=== PATIENT | female | born 1950 | race Caucasian/White ===

== ENCOUNTER 2016-07-17 13:18 | Inpatient (IN) | payer OTHER, MEDICAID ==
--- NOTE | 2016-07-17 13:31 | EDPHY ---
H & P Stated Complaint: SOB since . [place] Seen by Provider: 07/17/16 13:29 - Personal History Current Tetanus Diphtheria and Acellular Pertussis (TDAP): Yes - Medical/Surgical History Hx Asthma: No Hx Chronic Respiratory Disease: No Hx Diabetes: No Hx Cardiac Disease: No Hx Renal Disease: No Hx Cirrhosis: No Hx Alcoholism: No Hx HIV/AIDS: No Hx Splenectomy or Spleen Trauma: No Other PMH: POLYCYTHEMIA/HTN - Social History Smoking Status: Never smoked Constitutional: Initial Vital Signs Temperature (C) 36.7 C 07/17/16 13:20 Heart Rate 83 07/17/16 13:20 Respiratory Rate 20 07/17/16 13:20 Blood Pressure 165/68 H 07/17/16 13:20 O2 Sat (%) 70 L 07/17/16 13:20 O2 Delivery Mode Nasal Cannula O2 (L/minute) 4 Allergies/Adverse Reactions: No Known Allergies Allergy (Unverified 01/25/15 14:30) Home Medications: Medication Instructions Recorded Aspirin 81mg (OTC) 01/25/15 Bystolic 5 mg (RX) 01/25/15 HCTZ (*) 07/17/16 Medical Decision Making ED Course/Re-evaluation: CHIEF COMPLAINT: Shortness of breath, hypoxia. HISTORY OF PRESENT ILLNESS: The patient is a 65-year-old female with a history of polycythemia vera who presents with shortness of breath and hypoxia. She returned from a short trip to [place] a week ago and immediately began to feel lightheaded, nauseated, and febrile. Her oxygen levels were 77-80 at this time. She does not use oxygen normally at home but monitors her levels due to her polycythemia vera. She admits associated bloating and dry cough. The shortness of breath and cough are worse when lying flat and wake her up from sleep. She denies pleuritic pain, chest pain, peripheral edema. She has no history of similar symptoms. History obtained via daughter translating at bedside. REVIEW OF SYSTEMS: A 10 point review of systems was performed and is negative with the exception of the elements mentioned in the history of present illness. PHYSICAL EXAM: HR, BP, O2 Sat, RR. Temp noted General Appearance: Alert, well hydrated, appropriate, and non-toxic appearing. Head: Atraumatic without scalp tenderness or obvious injury Eyes: Pupils equal, round, reactive to light and accommodation, EOMI, no trauma , no injection. Ears: Clear bilaterally, no perforation, normal landmarks Nose: Atraumatic, no rhinorrhea, clear. Throat: There is no erythema or exudates, no lesions, normal tonsils, mucus membranes moist. Neck: Supple, 2+ carotid upstroke, nontender, no lymphadenopathy. Respiratory: No retractions, no distress, no wheezes, and no accessory muscle use. Rales retirement up bases bilaterally. Cardiovascular: Regular rate and rhythm, no murmurs, rubs, or gallops. Bilateral carotid, radial, dorsalis pedis, and posterior tibial pulses intact. Good capillary refill all extremities. Gastrointestinal: Abdomen is soft, nontender, non-distended, no masses, no rebound, no guarding, no peritoneal signs. Musculoskeletal: Normal active ROM of all extremities, atraumatic. Small amount of swelling bilaterally. Neurological: Alert, appropriate, and interactive. The patient has normal DTRs and non-focal cranial nerves, motor, sensory, and cerebellar exam. Skin: No rashes, good turgor, no nodules on palpation. Past medical history: Polycythemia vera, hypertension, mitral valve prolapse. Past surgical history: N/A. Family history: N/A. Social history: Lives in [place] DIAGNOSTICS/PROCEDURES/CRITICAL CARE TIME: Study: PA and Lateral Chest X-ray Indication: Shortness of breath. Results: I viewed the images myself on the PACS system. My interpretation of the images is: cardiomegaly, CHF vs patchy infiltrate. The radiologist interpretation is pending at the time of this dictation. The 12 lead EKG was interpreted by myself. See hard copy and/or "tracemaster" electronic copy for interpretation. Sinus rhythm, poor R-wave progression anterior leads. DIFFERENTIAL DIAGNOSIS: The differential diagnosis for the patient's shortness of breath and hypoxemia included but was not limited to pneumonia, myocardial infarction, acute mountain sickness, high altitude pulmonary edema, congestive heart failure, and pulmonary embolus. MEDICAL DECISION MAKIN-year-old female with a history of polycythemia vera presents with dyspnea and hypoxia since returning from a short trip to [place] approximately a week ago. She has been measuring her oxygen levels over that period time and noted them to be in the 77-80 range. She has had associated cough and abdominal bloating. Her symptoms are worse at night and when lying flat. On exam she has mild peripheral edema and rales retirement up her bases. I strongly believe this represents an episode of congestive heart failure due to paroxysmal nocturnal dyspnea. We will obtain labs, chest x-ray, and EKG. I have also ordered an echocardiogram. Patient's WBC elevated at 25k, however she is not systemically ill and I have not ordered a venous blood lactate. Chest x-ray interpreted by me consisted with congestive heart failure and the patient is receiving her echocardiogram. Dr. Bhat, radiology, agrees that the x-ray represents CHF and also notes a small nodule over a lung. He sees no evidence of infectious disease. Her kidney function tests are negative, indicating no acute kidney injury from fluid overload. Troponin is negative and BNP is elevated at 3030. The initial echocardiogram report is normal smith with mild tricuspid regurgitation. Plan for admission for new-onset CHF. I informed the patient of her course and this plan and answered all of her questions. Cardiology has been paged. She has been treated with 1 inch nitroglycerin paste and 40mg IV Lasix. Her vitals have remained stable after this treatment. 1450: Consulted with Dr. Scales, cardiology. She is aware of the patient and will consult. 1456: Consulted with Dr. Segundo, hospitalist. She accepts admission. 1530: Consulted with Dr. Scales after her initial evaluation. She believes she is in heart failure and agrees that chest CT is not indicated. I discussed the course and plan with the patient and answered her questions. She is awaiting transfer to her room. - Data Points Laboratory Results: Laboratory Results 07/17/16 13:49 07/17/16 13:49 07/17/16 07/17/16 07/17/16 13:49 13:49 13:49 WBC 25.83 10^3/uL H 10^3/uL (3.80-9.50) RBC 6.03 10^6/uL H 10^6/uL (4.18-5.33) Hgb 10.5 g/dL L g/dL (12.6-16.3) Hct 39.2 % % (38.0-47.0) MCV 65.0 fL L fL (81.5-99.8) MCH 17.4 pg L pg (27.9-34.1) MCHC 26.8 g/dL L g/dL (32.4-36.7) RDW 20.8 % H % (11.5-15.2) Plt Count 729 10^3/uL H 10^3/uL (150-400) MPV 10.0 fL fL (8.7-11.7) Neut % (Auto) Not Reported Lymph % (Auto) Not Reported [place] % (Auto) Not Reported Eos % (Auto) Not Reported Baso % (Auto) Not Reported Nucleat RBC Rel Count 0.2 % % (0.0-0.2) Absolute Neuts (auto) Not Reported Absolute Lymphs (auto) Not Reported Absolute Monos (auto) Not Reported Absolute Eos (auto) Not Reported Absolute Basos (auto) Not Reported Absolute Nucleated RBC 0.04 10^3/uL H 10^3/uL (0-0.01) Immature Gran % Not Reported Seg Neutrophils % 81 % % Band Neutrophils % 9 % % Lymphocytes % 5 % % Monocytes % 3 % % Eosinophils % 1 % % Metamyelocytes % 1 % % Immature Gran # Not Reported Absolute Seg Neuts 20.92 10^/uL H 10^/uL (1.70-6.50) Absolute Band Neuts 2.32 10^3/uL H 10^3/uL (0.00-0.70) Absolute Lymphocytes 1.29 10^3/uL 10^3/uL (1.00-3.00) Absolute Monocytes 0.77 10^3/uL 10^3/uL (0.30-0.80) Absolute Eosinophils 0.26 10^3/uL 10^3/uL (0.03-0.40) Absolute Metamyelocyte 0.26 10^3/mL H 10^3/mL (0.00-0.00) Differential Comment Cancelled RBC/WBC/PLT Morphology Cancelled Hypersegmented Neuts Cancelled Atypical Lymphocytes Cancelled Smudge Cells Cancelled Toxic Granulation Cancelled Toxic Vacuolation Cancelled Dohle Bodies Cancelled Mar Rods Cancelled Platelet Estimate Cancelled INCREASED H (ADEQ) Large Platelets Cancelled PRESENT H Giant Platelets Cancelled PRESENT H Bizarre Platelets Cancelled Polychromasia Cancelled 2+ H Hypochromasia Cancelled 2+ H Basophilic Stippling Cancelled Microcytic Cells Cancelled 2+ H Spherocytes Cancelled Pappenheimer Bodies Cancelled Sickle Cells Cancelled Target Cells Cancelled Tear Drop Cells Cancelled 1+ H Oval Macrocytes Cancelled Stomatocytes Cancelled [place] Bodies Cancelled Echinocytes Cancelled Elliptocytes Cancelled Acanthocytes (Spur) Cancelled Rouleaux Cancelled Keratocytes Cancelled Schistocytes Cancelled Smear Review By Pending Sodium 136 mEq/L mEq/L (134-144) Potassium 4.0 mEq/L mEq/L (3.5-5.2) Chloride 99 mEq/L mEq/L (97-110) Carbon Dioxide 23 mEq/l mEq/l (22-31) Anion Gap 14 mEq/L mEq/L (8-16) BUN 20 mg/dL mg/dL (7-23) Creatinine 0.9 mg/dL mg/dL (0.6-1.0) Estimated GFR > 60 Glucose 183 mg/dL H mg/dL (70-100) Calcium 8.6 mg/dL mg/dL (8.5-10.4) Magnesium 1.8 mg/dL mg/dL (1.6-2.3) Troponin I 0.031 ng/mL ng/mL (0-0.034) NT-Pro-B Natriuret Pep 3030 pg/mL H pg/mL (0-125) Cold Agglutinins Cancelled Medications Given: Discontinued Medications Furosemide (Lasix Injection) 40 mg IVP EDNOW ONE Stop: 07/17/16 13:45 Last Admin: 07/17/16 14:45 Dose: 40 mg Nitroglycerin (Nitro-Bid 2%) 1 inch TP EDNOW ONE Stop: 07/17/16 13:45 Last Admin: 07/17/16 14:46 Dose: 1 inch Departure - Departure Disposition: [facility] Inpatient Acute Clinical Impression: Cardiomegaly, Elevated brain natriuretic peptide (BNP) level CHF (congestive heart failure) Qualifiers: Congestive heart failure type: unspecified congestive heart failure type Congestive heart failure chronicity: acute Qualified Code(s): I50.9 - Heart failure, unspecified Condition: Fair Report Scribed for: Tank Sheldon Report Scribed by: Mg Whiteside Date of Report: 07/17/16 Time of Report: 14:32
[2016-07-17] MEDS ORDERED: NITROGLYCERIN 2% 1 GM PACKET TP ONE (13:44)
[2016-07-17] MEDS ORDERED: FUROSEMIDE 40 MG/4 ML VIAL IVP ONE (13:44)
--- NOTE | 2016-07-17 13:52 | CPEKG ---
Heart Rate: 79 RR Interval: 759 P-R Interval: 119 QRSD Interval: 88 QT Interval: 404 QTC Interval: 464 P [place]: 0 QRS [place]: 69 T Wave [place]: 68 EKG Severity - BORDERLINE ECG - EKG Impression: SINUS RHYTHM EKG Impression: BORDERLINE T ABNORMALITIES, ANT-LAT LEADS Electronically Signed By: Tank Sheldon 17-Jul-2016 21:44:06
[2016-07-17 13:58] LABS: ABSOLUTE NRBC COUNT 0.04 10^3/uL (0-0.01); ADD DIFF? YES; ADD MORPH? YES; ATYPICAL LYMPHOCYTE FLAG 0 (0-99); FRAGMENT RBC FLAG 80 (0-99); HEMATOCRIT 39.2 % (38.0-47.0); HEMOGLOBIN 10.5 g/dL (12.6-16.3); LEFT SHIFT FLG 10 (0-99); LIPEMIA HEMOLYSIS FLAG 70 (0-99); MEAN CELL HEMOGLOBIN 17.4 pg (27.9-34.1); NRBC-AUTO% 0.2 % (0.0-0.2); PLATELET CLUMPS FLAG 10 (0-99); PLATELET COUNT 729 10^3/uL (150-400); RED BLOOD CELL COUNT 6.03 10^6/uL (4.18-5.33)
[2016-07-17 13:59] LABS: ADD SCAN? NO
[2016-07-17 14:08] LABS: MEAN CELL HEMOGLOBIN CONCENTR. 26.8 g/dL (32.4-36.7); RED CELL DISTRIBUTION WIDTH 20.8 % (11.5-15.2)
[2016-07-17 14:11] LABS: ANION GAP 14 mEq/L (8-16); CALCIUM 8.6 mg/dL (8.5-10.4); CARBON DIOXIDE 23 mEq/l (22-31); CHLORIDE 99 mEq/L (97-110); CREATININE 0.9 mg/dL (0.6-1.0); GLOMERULAR FILTRATION RATE > 60; GLUCOSE 183 mg/dL (70-100); MAGNESIUM 1.8 mg/dL (1.6-2.3); SODIUM 136 mEq/L (134-144)
[2016-07-17 14:23] LABS: TROPONIN I 0.031 ng/mL (0-0.034)
--- NOTE | 2016-07-17 15:03 | ECHO ---
[id number] + + [id number] : : [place] [id number] : : [phone] + + Adult Echocardiographic Report + -----+ :Name: SHILOHJAKEJohann QUIROS Date: 07/17/2016 02:13 PM : : Hospital Admission Number: [id number] Kerline n: ER: :: 1950 Gender: Female Height: 60 in : :Age: 65 yrs Race: WH Weight: 160 lb : :Reason For Study: Chest pain : : BSA: 1.7 meters 2 : + -----+ MMode/2D Measurements \T\ Calculations IVSd: 1.0 cm LVIDd: 4.1 cm FS: 43.8 % Ao root diam: LVPWd: 0.94 cm LVIDs: 2.3 cm EDV(Teich): 2.9 cm 73.8 ml LA dimension: ESV(Teich): 4.5 cm 18.1 ml EF(Teich): 75.4 % LVLd ap4: 8.1 cm SV(MOD-sp4): EDV(MOD-sp4): 52.0 ml 68.0 ml LVLs ap4: 6.2 cm ESV(MOD-sp4): 16.0 ml EF(MOD-sp4): 76.5 % Normal Measurement Values: + + :LVIDd (3.5-5.7cm) IVSd (0.6-1.1cm) LVPWd (0.6-1.1cm) Aortic Root (2.0-3.7cm)Left Atrium (1.5-4.0cm): :LV Vol(d) (76-115ml) LV Vol(s) (29-48ml) Ejec Fraction (50-65%)PV Francisco (0.6- 1.2m/s) TV [place] (0.4-1.0m/s) : :MV E [place] (0.8-1.0m/s)MV A [place] (0.3-1.0m/s)LVOT Francisco (0.7-1.2m/s) Asc Ao Francisco ( 0.9-1.8m/s) : + + Doppler Measurements \T\ Calculations MV E max francisco: 85.9 cm/sec Ao V2 max: 202.0 cm/sec TR max francisco: 311.0 cm/sec MV A max francisco: 125.0 cm/sec Ao max P.3 mmHg TR max P.7 mmHg MV E/A: 0.69 Ao mean P.0 mmHg RAP systole: 10.0 mmHg Ao V2 mean: 122.0 cm/secRVSP(TR): 48.7 mmHg Ao V2 VTI: 37.7 cm Left Ventricle The left ventricle is normal in size. There is normal left ventricular wall thickness. The left ventricle is hyperdynamic. Ejection Fraction = 70-75%. Grade I diastolic dysfunction. No regional wall motion abnormalities noted. Right Ventricle The right ventricle is normal in size and function. Atria The left atrium is mild to moderately dilated. The right atrium is moderately dilated. Mitral Valve There is moderate mitral annular calcification. There is no evidence of mitral valve prolapse. There is no mitral valve stenosis. There is mild mitral regurgitation. Tricuspid Valve Normal tricuspid valve. There is mild to moderate tricuspid regurgitation. Right ventricular systolic pressure is 49mmHg. There is Doppler evidence for mild pulmonary hypertension. Aortic Valve The aortic valve is trileaflet. The aortic valve opens well. There is no aortic stenosis. There is no aortic insufficiency. Pulmonic Valve The pulmonic valve is normal in structure and function. There is no pulmonic valvular regurgitation. Great Vessels The aortic root is normal size. Pericardium/Pleural There is no pericardial effusion. Conclusion A complete two-dimensional transthoracic echocardiogram was performed (2D, M-mode, Doppler and color flow Doppler). The left ventricle is hyperdynamic. Ejection Fraction = 70-75%. Normal LV wall motion The left atrium is mild to moderately dilated. The right atrium is moderately dilated. There is moderate mitral annular calcification. There is mild mitral regurgitation. There is mild to moderate tricuspid regurgitation. Right ventricular systolic pressure is 49mmHg. There is Doppler evidence for mild pulmonary hypertension. Final Reading Physician: Dr Sylvia Scales electronically signed on 07/17/2016 03:02 PM Ordering Physician: Tank Sheldon Performed By: Irene Ortiz, NITACS
[2016-07-17 15:07] LABS: GIANT PLATELETS PRESENT; HYPOCHROMIA 2+; LARGE PLATELETS PRESENT; MICROCYTES 2+; PLATELET ESTIMATE INCREASED (ADEQ); POLYCHROMASIA 2+
[2016-07-17] MEDS ORDERED: ONDANSETRON 4 MG/2 ML VIAL IVP PRN (17:26)
[2016-07-17] MEDS ORDERED: ONDANSETRON DISINTEGRATING 4 MG TAB PO PRN (17:26)
[2016-07-17] MEDS ORDERED: ACETAMINOPHEN 325 MG TAB PO PRN (17:26)
--- NOTE | 2016-07-17 17:33 | PDGENHP ---
History and Physical - Chief Complaint acute Shortness of breath - History of Present Illness PCP: Dr. Hill Primary oncologist: Dr. Calabrese HPI: 65-year-old female presents with acute shortness of breath characterized as difficulty taking deep inspiration with associated lightheadedness, nausea, subjective fever, paroxysmal nocturnal dyspnea with onset of symptoms approximately 5 days ago and duration progressive worsening thereafter. Her shortness of breath is exacerbated by lying supine has been somewhat alleviated by receiving nitroglycerin and Lasix in the emergency department. Her daughter notes that she has been urinating more frequently recently and has had some urinary incontinence with coughing. Prior to patient's onset of symptoms, she had been visiting with family in [place] and she has been frequently dining out. Approximately 1 month ago she experienced with her daughter characterizes as a URI. The patient denies ever experiencing similar symptoms. She has otherwise been taking all of her home medications including Bystolic, hydrochlorothiazide , baby aspirin daily. She does check her blood pressure fairly routinely and reports that is generally between 120 and 130. History Information - Allergies/Home Medication List Allergies/Adverse Reactions: No Known Allergies Allergy (Unverified 01/25/15 14:30) Home Medications: Aspirin 81mg (OTC) 01/25/15 [Last Taken Unknown] Bystolic 5 mg (RX) 01/25/15 [Last Taken Unknown] HCTZ (*) 07/17/16 [Last Taken Unknown] I have personally reviewed and updated: family history, medical history, social history, surgical history - Past Medical History hypertension Additional medical history: polycythemia with baseline white blood cell count in the 20,000 range - Surgical History Reports: no pertinent surgical hx - Family History Additional family history: no family history of venous thromboembolism, no family history of coronary artery disease - Social History Smoking Status: Never smoked Alcohol Use: None Drug Use: None Additional social history: normally independent in her ADLs, lives locally Review of Systems ROS: 10pt was reviewed & negative except for what was stated in HPI & below Constitutional: Reports: fever Respiratory: Reports: cough, shortness of breath Gastrointestinal: Reports: nausea Physical Exam Temp Pulse Resp BP Pulse Ox 36.7 C 83 22 H 142/70 H 90 L 07/17/16 16:09 07/17/16 16:09 07/17/16 16:09 07/17/16 16:09 07/17/16 16:09 O2 (L/minute) 4 Constitutional: no apparent distress, appears nourished, not in pain Eyes: PERRL, anicteric sclera, EOMI Ears, Nose, Mouth, Throat: moist mucous membranes, hearing normal, ears appear normal, no oral mucosal ulcers Cardiovascular: JVD, No systolic murmur, No irregularly irregular, No tachycardia, No edema Respiratory: inspiratory crackles ( bilaterally diffusely throughout posteriorly ), No reduced air movement, No expiratory wheeze, No bronchial breath sounds, No respiratory distress Gastrointestinal: normoactive bowel sounds, soft, non-tender abdomen, no palpable masses Skin: warm, normal color, no rashes or abrasions, no fluctuance, no induration, No mottled Neurologic: AAOx3, sensation intact bilaterally, No weakness ( motor strength 5/ 5 bilateral lower extremity) Psychiatric: interacting appropriately, not anxious, not encephalopathic, thought process linear Lab Data & Imaging Review 07/17/16 13:49 07/17/16 13:49 WBC 25.83 10^3/uL (3.80-9.50) H 07/17/16 13:49 RBC 6.03 10^6/uL (4.18-5.33) H 07/17/16 13:49 Hgb 10.5 g/dL (12.6-16.3) L 07/17/16 13:49 Hct 39.2 % (38.0-47.0) 07/17/16 13:49 MCV 65.0 fL (81.5-99.8) L 07/17/16 13:49 MCH 17.4 pg (27.9-34.1) L 07/17/16 13:49 MCHC 26.8 g/dL (32.4-36.7) L 07/17/16 13:49 RDW 20.8 % (11.5-15.2) H 07/17/16 13:49 Plt Count 729 10^3/uL (150-400) H 07/17/16 13:49 MPV 10.0 fL (8.7-11.7) 07/17/16 13:49 Neut % (Auto) Not Reported 07/17/16 13:49 Lymph % (Auto) Not Reported 07/17/16 13:49 [place] % (Auto) Not Reported 07/17/16 13:49 Eos % (Auto) Not Reported 07/17/16 13:49 Baso % (Auto) Not Reported 07/17/16 13:49 Nucleat RBC Rel Count 0.2 % (0.0-0.2) 07/17/16 13:49 Absolute Neuts (auto) Not Reported 07/17/16 13:49 Absolute Lymphs (auto) Not Reported 07/17/16 13:49 Absolute Monos (auto) Not Reported 07/17/16 13:49 Absolute Eos (auto) Not Reported 07/17/16 13:49 Absolute Basos (auto) Not Reported 07/17/16 13:49 Absolute Nucleated RBC 0.04 10^3/uL (0-0.01) H 07/17/16 13:49 Immature Gran % Not Reported 07/17/16 13:49 Seg Neutrophils % 81 % 07/17/16 13:49 Band Neutrophils % 9 % 07/17/16 13:49 Lymphocytes % 5 % 07/17/16 13:49 Monocytes % 3 % 07/17/16 13:49 Eosinophils % 1 % 07/17/16 13:49 Metamyelocytes % 1 % 07/17/16 13:49 Immature Gran # Not Reported 07/17/16 13:49 Absolute Seg Neuts 20.92 10^/uL (1.70-6.50) H 07/17/16 13:49 Absolute Band Neuts 2.32 10^3/uL (0.00-0.70) H 07/17/16 13:49 Absolute Lymphocytes 1.29 10^3/uL (1.00-3.00) 07/17/16 13:49 Absolute Monocytes 0.77 10^3/uL (0.30-0.80) 07/17/16 13:49 Absolute Eosinophils 0.26 10^3/uL (0.03-0.40) 07/17/16 13:49 Absolute Metamyelocyte 0.26 10^3/mL (0.00-0.00) H 07/17/16 13:49 Differential Comment Cancelled 07/17/16 13:49 RBC/WBC/PLT Morphology Cancelled 07/17/16 13:49 Hypersegmented Neuts Cancelled 07/17/16 13:49 Atypical Lymphocytes Cancelled 07/17/16 13:49 Smudge Cells Cancelled 07/17/16 13:49 Toxic Granulation Cancelled 07/17/16 13:49 Toxic Vacuolation Cancelled 07/17/16 13:49 Dohle Bodies Cancelled 07/17/16 13:49 Mar Rods Cancelled 07/17/16 13:49 Platelet Estimate INCREASED (ADEQ) H 07/17/16 13:49 Large Platelets PRESENT H 07/17/16 13:49 Giant Platelets PRESENT H 07/17/16 13:49 Bizarre Platelets Cancelled 07/17/16 13:49 Polychromasia 2+ H 07/17/16 13:49 Hypochromasia 2+ H 07/17/16 13:49 Basophilic Stippling Cancelled 07/17/16 13:49 Microcytic Cells 2+ H 07/17/16 13:49 Spherocytes Cancelled 07/17/16 13:49 Pappenheimer Bodies Cancelled 07/17/16 13:49 Sickle Cells Cancelled 07/17/16 13:49 Target Cells Cancelled 07/17/16 13:49 Tear Drop Cells 1+ H 07/17/16 13:49 Oval Macrocytes Cancelled 07/17/16 13:49 Stomatocytes Cancelled 07/17/16 13:49 Nicole-[place] Bodies Cancelled 07/17/16 13:49 Echinocytes Cancelled 07/17/16 13:49 Elliptocytes Cancelled 07/17/16 13:49 Acanthocytes (Spur) Cancelled 07/17/16 13:49 Rouleaux Cancelled 07/17/16 13:49 Keratocytes Cancelled 07/17/16 13:49 Schistocytes Cancelled 07/17/16 13:49 D-Dimer 0.81 ug/mLFEU (0.00-0.50) H 07/17/16 16:20 Sodium 136 mEq/L (134-144) 07/17/16 13:49 Potassium 4.0 mEq/L (3.5-5.2) 07/17/16 13:49 Chloride 99 mEq/L (97-110) 07/17/16 13:49 Carbon Dioxide 23 mEq/l (22-31) 07/17/16 13:49 Anion Gap 14 mEq/L (8-16) 07/17/16 13:49 BUN 20 mg/dL (7-23) 07/17/16 13:49 Creatinine 0.9 mg/dL (0.6-1.0) 04 13:49 Estimated GFR > 60 04 13:49 Glucose 183 mg/dL (70-100) H 07/17/16 13:49 Calcium 8.6 mg/dL (8.5-10.4) 04 13:49 Magnesium 1.8 mg/dL (1.6-2.3) 04 13:49 Troponin I 0.031 ng/mL (0-0.034) 04 13:49 NT-Pro-B Natriuret Pep 3030 pg/mL (0-125) H 07/17/16 13:49 Cold Agglutinins Cancelled 07/17/16 13:49 Visualized and Interpreted Chest x-ray results: Yes Chest X-Ray results: other ( bilateral interstitial prominence with atelectasis and right-sided nodule) Visualized and Interpreted EKG results: Yes EKG Interpretation: Positive for: other ( T-wave inversion in lead V2, normal sinus rhythm) Assessment & Plan Assessment: 65-year-old female presents with acute shortness of breath secondary to acute diastolic congestive heart failure exacerbation Plan: 1. Shortness of breath. Acute, new problem this provider, further workup indicated. Most likely secondary to acute diastolic congestive heart failure exacerbation, but other potential etiologies should be considered given her recent travel and subjective fevers -diameter positive, get CT angiogram to rule out pulmonary embolism -get influenza PCR given the patient most likely did not receive vaccination this year -continue on supplemental oxygen 2. Diastolic congestive heart failure exacerbation. Acute, most likely secondary to under controlled hypertension with recent dietary indiscretions and possible increased fluid intake in the setting of recent URI -evidenced by interstitial infiltrates on chest x-ray, elevated BNP, symptomatic shortness of breath, JVD, hypoxia -echocardiogram demonstrating diastolic dysfunction, no focal wall motion abnormalities, hyperdynamic left ventricle with ejection fraction 70-75% and moderate left atrial enlargement -symptomatic improvement with Lasix and nitroglycerin, discontinue nitroglycerin at this time and continue with IV Lasix scheduled 40 mg twice daily -supplemental potassium and monitor electrolytes -reviewed outside records including emergency department report by Dr. Tank Sheldon on 07/17/2016, reports that Dr. Scales from Cardiology has been consulted -most recent stress test in our system was 03/22/2010, normal at that time 3. Hypertension. Will continue patient's home Bystolic and have replaced hydrochlorothiazide with Lasix Diet. Cardiac diet Prophylaxis. Moderate risk patient, Lovenox 40 Code. Full Disposition. Anticipated discharge is uncertain this time, anticipated length stay is greater than 48 hours warranting inpatient admission status for a new diagnsosis of acute diastolic congestive heart failure exacerbation in the setting of hypertension and ongoing shortness of breath. I have discussed patient's presentation with Dr. Nikki Segundo, she has signed out the patient to me for admission to the PCU.
--- NOTE | 2016-07-17 18:17 | GCON ---
[f rep st] CONSULTATION CARDIOLOGY CONSULTATION. DATE OF CONSULTATION: 07/17/2016 PRIMARY WEB DESIGN SPECIALIST: August Jo MD CHIEF COMPLAINT: Shortness of breath. HISTORY OF PRESENT ILLNESS: We were asked by Dr. Sheldon to visit with the patient. The patient is a pleasant 65-year-old, Maltese-speaking female with a history of hypertension and impaired fasting glucose. Her daughter is present and translates during the interview. Last week, she and her family were in [place]. While there, she started to feel somewhat unwell wit h malaise and cough. She flew back to [place] approximately 5 days ago. Upon return, she felt es rt of breath, continued dry cough, and 1 day of fever. She has not had chest pain or palpitations. No presyncope or syncope. She felt that her abdomen was distended. She did not have lower extremi ty edema. Symptoms have progressed to the point where when she lies down she feels short of breath and has a cough. Her daughter found that her oxygen saturation at home was low, in the 80s. Theref ore, they presented to the emergency department for further evaluation. In the emergency department, she has received nitro paste and IV Lasix, and already had reasonable u rine output. Troponin is negative. EKG is nonischemic. She is being admitted for further evaluati on of hypoxia. REVIEW OF SYSTEMS: CARDIOVASCULAR: As per HPI. PULMONARY: She is a nonsmoker and gives no histor y of known underlying lung disease. GI: Abdominal distention without diarrhea or abdominal pain. : Denies dysuria. NEURO: No history of stroke or TIA. SKIN: For about a month she has had an intermittent rash over her left lateral thigh. This itches and is in no other part of her body. ALLERGIES: No known drug allergies. PAST MEDICAL HISTORY: 1. Hypertension. 2. Impaired fasting glucose. 3. Polycythemia vera. MEDICATIONS: Aspirin 81 mg daily, Bystolic, hydrochlorothiazide, magnesium, and metformin. SURGICAL HISTORY: Appendectomy and hernia repair. SOCIAL HISTORY: The patient has 2 children. Her daughter is at the bedside. She is . She does not drink alcohol. She is a lifelong nonsmoker. FAMILY HISTORY: Negative for premature coronary disease. Her mother has hypertension. PHYSICAL EXAMINATION: VITAL SIGNS: Initial blood pressure 165/68, currently 142/57, heart rate 75, oxygen saturation 70% on room air and 98% on 4 L nasal cannula. Afebrile. GENERAL: This is a wel l-appearing, middle-aged female, in no acute distress. HEENT: Sclerae are clear and free of jaundi ce. Mucous membranes are moist. Normocephalic, atraumatic. CARDIOVASCULAR: JVP is less than 10. Carotids equal and 2+ bilaterally, without bruit. Regular rate and rhythm. Soft early systolic mu rmur at the left lower sternal border. LUNGS: Bibasilar rales. No wheezes or rhonchi. She does n ot appear to be using accessary muscles to breathe. ABDOMEN: Soft, nontender, nondistended, withou t bruits, masses or hepatosplenomegaly. EXTREMITIES: Warm and well perfused, without cyanosis, clu bbing, or edema. NEURO: Alert and oriented x3 without gross focal neurological deficits. Appropri ate mood and affect. LABORATORY DATA: White count is 25.83, which is near her baseline. Hematocrit 39.2, platelets 729, which is also her baseline. She has a high proportion of bands and segmented neutrophils. Sodium 136, potassium 4, chloride 99, bicarb 23, BUN 20, creatinine 0.9, glucose 183. BNP 3030. Troponin negative. Magnesium 1.8. Calcium 8.6. EKG reviewed by me: Normal sinus rhythm. Left atrial abnormality. Delayed R-wave progression. No acute ischemic abnormalities. Chest x-ray reviewed by me: Interstitial prominence, right basilar nodule, bibasilar opacities. Echocardiogram reviewed by me. Normal LV size and systolic function, without regional wall motion abnormalities. Grade 1 diastolic dysfunction. Mild to moderate left a trial dilation. Moderate right atrial dilation. Mild mitral regurgitation. [id number] tricu spid regurgitation with estimated pulmonary artery pressure of 49 mmHg. Nuclear stress test in our office in August 2015 was a Lexiscan study due to chronotropic incompetence. Normal myocardial perfusion and normal left ventricular ejection fraction. ASSESSMENT AND PLAN: A 65-year-old female with cardiac risk factors of age, hypertension, impaired fasting glucose. She is now being admitted with hypoxic respiratory failure, elevated BNP. The dif ferential diagnosis for her clinical picture includes atypical bacterial versus viral pneumonia, anam ecially in the setting of overall malaise and a history of fever. She does appear to be in mild hea rt failure based on her elevated BNP as well as chest x-ray findings. Doubt pulmonary embolism give n her abnormal lung exam and lack of lower extremity swelling or calf tenderness. Doubt cardiac isc hemia. Of note, she was also quite hypertensive upon admission, and this may be driving some of her diastolic heart failure. Her pulmonary hypertension may be related to underlying lung process. 1. Hypoxic respiratory failure: Differential diagnosis as above. She has responded to nitro paste and IV Lasix. Would continue to cycle troponins to ensure this is not an ischemically-mediated hea rt failure exacerbation. Consider flu swab. Will defer to hospitalist. If she does not clinically improve with blood pressure control and diuresis, could consider high-resolution chest CT, especial ly since she has a diffuse pattern of interstitial prominence and a possible pulmonary nodule seen o n plain chest radiograph. As above, doubt pulmonary embolism. 2. Valvular heart disease: She has mild mitral regurgitation and [id number] tricuspid regurg itation with mild pulmonary hypertension. Diuresis. I think her pulmonary hypertension is related to her underlying lung process with some contribution from left-sided diastolic heart failure. 3. Systemic hypertension: She should resume her usual outpatient medications. Poorly-controlled h ypertension may have triggered heart failure. 4. Impaired fasting glucose: She is on metformin at home. Thank you for allowing us to participate in the patient's care. We will follow with you. /[id number]/MODL
[2016-07-17] MEDS ORDERED: IOPAMIDOL (ISOVUE 370) 100 ML BTL IV ONE (18:21)
[2016-07-18 04:32] LABS: ABSOLUTE NRBC COUNT 0.04 10^3/uL (0-0.01); ADD DIFF? YES; ADD SCAN? NO; ATYPICAL LYMPHOCYTE FLAG 0 (0-99); FRAGMENT RBC FLAG 80 (0-99); HEMATOCRIT 38.3 % (38.0-47.0); LEFT SHIFT FLG 0 (0-99); LIPEMIA HEMOLYSIS FLAG 60 (0-99); MEAN CELL HEMOGLOBIN 17.6 pg (27.9-34.1); MEAN PLATELET VOLUME 9.9 fL (8.7-11.7); NRBC-AUTO% 0.2 % (0.0-0.2); PLATELET CLUMPS FLAG 0 (0-99); PLATELET COUNT 613 10^3/uL (150-400); RED BLOOD CELL COUNT 5.68 10^6/uL (4.18-5.33)
[2016-07-18 04:49] LABS: ALANINE AMINOTRANSFERASE 30 IU/L (9-52); ALBUMIN 3.7 g/dL (3.5-5.0); ALKALINE PHOSPHATASE 148 IU/L (38-126); ASPARTATE AMINOTRANSFERASE 17 IU/L (14-46); BILIRUBIN,TOTAL 0.8 mg/dL (0.1-1.4); CALCIUM 8.7 mg/dL (8.5-10.4); CARBON DIOXIDE 23 mEq/l (22-31); CHLORIDE 97 mEq/L (97-110); CREATININE 0.9 mg/dL (0.6-1.0); GLOMERULAR FILTRATION RATE > 60; GLUCOSE 142 mg/dL (70-100); MAGNESIUM 1.8 mg/dL (1.6-2.3); SODIUM 138 mEq/L (134-144); TOTAL PROTEIN 7.2 g/dL (6.3-8.2)
[2016-07-18 05:01] LABS: ANION GAP 18 mEq/L (8-16); POTASSIUM 4.2 mEq/L (3.5-5.2)
[2016-07-18 05:06] LABS: ADD MORPH? NO; MEAN CELL HEMOGLOBIN CONCENTR. 26.1 g/dL (32.4-36.7); MEAN CELL VOLUME 67.4 fL (81.5-99.8); RED CELL DISTRIBUTION WIDTH 20.8 % (11.5-15.2)
[2016-07-18 05:40] LABS: LARGE PLATELETS PRESENT; PLATELET ESTIMATE INCREASED (ADEQ)
[2016-07-18 05:41] LABS: POLYCHROMASIA 2+
[2016-07-18 05:42] LABS: HYPOCHROMIA 2+; MACROCYTES 1+; MICROCYTES 2+
[2016-07-18] MEDS: FUROSEMIDE 40 MG/4 ML VIAL IVP SCH ×2 (08:42→14:55)
[2016-07-18] MEDS: ENOXAPARIN 40 MG/0.4 ML SYR SC SCH (08:42)
[2016-07-18] MEDS: ASPIRIN EC 81 MG TAB PO SCH (09:43)
--- NOTE | 2016-07-18 12:23 | PDCARPN ---
Cardiology Progress Note Assessment/Plan: Assessment/plan: 65 y F with HTN, IFG, mild PHTN admitted /3 with hypoxic respiratory failure, likely HFpEF. Clinically improved with IV lasix and supplemental O2. Negative troponin 1. HFpEF: continue IV lasix. Trigger may have been suboptimally controlled HTN and dietary indiscretion. Likely transition to oral lasix tomorrow. If O2 requirements don't improve, consider pneumonia 2. Hypoxia: as per #1. Other possibilities include pneumonia. Chest CT more suggestive of CHF. No PE 3. HTN; restart Bystolic 4. IFG: outpt follow up 5. P Vera: baseline 6. Abnormal chest CT: seems to be pulmonary edema. Radiology recommends follow up imaging to survey ground glass opacities. 07/18/16 12:27 Subjective: Aleshia feels better. Cough is less. Improved SOB. No CP Reviewed/Discussed With: family Objective: Vital Signs (8 Hrs) Temp Pulse Resp BP Pulse Ox 07/18/16 11:52 36.7 C 84 19 143/86 H 98 07/18/16 07:31 37.3 C 73 20 137/60 H 92 07/18/16 07:10 75 Intake/Output (24 Hrs) 07/17/16 07/18/16 07/19/16 05:59 05:59 05:59 Intake Total 350 850 Balance 350 850 Intake: Oral (ml) 350 850 Other: Weight 72.1 kg Number of Voids Toilet 2 NAD JVP <10 RRR no m/r/g rales right base, clears with continued deep breaths --better than yesterday No edema Result Diagrams: 07/18/16 03:12 07/18/16 03:12 Telemetry: NSR ICD10 Worksheet Patient Problems: Problems Problem Status Onset CHF (congestive heart failure) Acute Cardiomegaly Acute Elevated brain natriuretic peptide (BNP) level Acute
[2016-07-18] MEDS: NEBIVOLOL HCL 5 MG TAB PO SCH ×2 (12:32→20:36)
--- NOTE | 2016-07-18 17:09 | PDDCSUM ---
Discharge Summary Discharge Summary: DISCHARGE SUMMARY FOLLOW-UP ITEMS: Creatinine BUN and lytes to be repeated prior to next appointment, repeat chest CT as an outpatient once she is clinically resolved DATE OF ADMISSION: 07/17/16 DATE OF DISCHARGE: 07/18/2016 DISCHARGE DIAGNOSES: 1. Acute diastolic congestive heart failure exacerbation 2. Chronic hypertension 3. Chronic polycythemia CONSULTATIONS: Cardiology by Dr. Sylvia Scales PROCEDURES / IMAGING: Echocardiogram demonstrating no focal wall motion abnormalities, hyperdynamic left ventricular, ejection fraction 70%, CT angiograms demonstrating congestive changes and bibasilar opacities CHIEF COMPLAINT: Acute shortness of breath SUBJECTIVE: Patient reports that she is feeling better and is able to ambulate with supplemental oxygen, she is requesting that she be discharged home at this time PHYSICAL EXAM ON DISCHARGE: Systolic blood pressure is 1/30, heart rate in the 70s, afebrile overnight, satting 83% on 4 L nasal cannula with ambulation, inspiratory crackles in the bilateral bases, not quite as pronounced as day prior, heart regular rate and rhythm, no lower extremity edema LABS ON DISCHARGE: Potassium 4.2, creatinine 0.9, white blood cell count 24,900, hemoglobin 10, influenza PCR negative HOSPITAL COURSE BY PROBLEM: 1. Acute diastolic congestive heart failure exacerbation. Evidenced by elevated BNP, interstitial infiltrates on chest imaging, symptomatic shortness of breath, JVD, notable hypoxia. Unclear precipitant, potentially high altitude pulmonary edema versus under controlled hypertension with diastolic dysfunction on echo and recent dietary indiscretions. She responded favorably to IV diuretics and supplemental oxygen. She was seen in consultation by Cardiology. Given that the patient immediately began feeling better with diuresis, she has requested that she be discharged home. I have advised the patient another 24 hours of IV diuretics as well as reduction in her oxygen requirements would be the safest course. The patient hears concerns but would like to be discharged home. Consequently, will adjust her to oral Lasix and supplemental potassium at this time with repeat creatinine BUN and lytes this week and immediate outpatient follow-up at [facility]. I have communicated this with Dr. Scales. 2. Chronic hypertension. Will continue the patient's home dosage of Bystolic and replaced her hydrochlorothiazide with Lasix. 3. Chronic polycythemia. Chronically elevated white blood cell count, suspect that the after mentioned chest imaging findings are secondary to CHF and not pneumonia. That being said, if the patient begins experiencing infectious symptoms would recommend that her outpatient providers consider antibiotics. At the present time, the patient is not expressing any infectious symptoms. DISCHARGE MEDICATIONS: Please see official discharge medication reconciliation sheet in chart , Lasix 40 mg twice daily with 10 mEq of potassium chloride daily. DISCHARGE INSTRUCTIONS: Please follow up with [facility] within the next 3 days and have labs drawn prior to that appointment. You will have your oxygen requirements reassessed in the clinic setting. TIME SPENT: Greater than 30 minutes were spent on direct patient care, as well as discharge planning and preparation. Patient's condition improved much more rapidly than initially anticipated when she was admitted on 07/17 for reasonable medical necessity. In addition, the patient has requested discharge home at this time and this is completely out of control. We are attempting to facilitate the safest discharge possible and the patient's request.
[2016-07-18] MEDS: MELATONIN 3 MG TAB PO SCH ×2 (20:35→20:36)
[2016-07-19 05:33] LABS: % IMMATURE GRANULYOCYTES 1.2 % (0.0-1.1); ABSOLUTE IMMATURE GRANULOCYTES 0.28 10^3/uL (0.00-0.10); ABSOLUTE NRBC COUNT 0.02 10^3/uL (0-0.01); ADD DIFF? NO; ADD MORPH? YES; ADD SCAN? NO; ATYPICAL LYMPHOCYTE FLAG 0 (0-99); FRAGMENT RBC FLAG 60 (0-99); HEMATOCRIT 38.6 % (38.0-47.0); HEMOGLOBIN 10.1 g/dL (12.6-16.3); LEFT SHIFT FLG 10 (0-99); LIPEMIA HEMOLYSIS FLAG 60 (0-99); MEAN CELL HEMOGLOBIN 17.4 pg (27.9-34.1); MEAN PLATELET VOLUME 10.2 fL (8.7-11.7); NRBC-AUTO% 0.1 % (0.0-0.2); PLATELET CLUMPS FLAG 0 (0-99); PLATELET COUNT 588 10^3/uL (150-400); RED BLOOD CELL COUNT 5.79 10^6/uL (4.18-5.33)
[2016-07-19 05:37] LABS: MEAN CELL HEMOGLOBIN CONCENTR. 26.2 g/dL (32.4-36.7); MEAN CELL VOLUME 66.7 fL (81.5-99.8); RED CELL DISTRIBUTION WIDTH 20.6 % (11.5-15.2)
[2016-07-19 06:00] LABS: ANION GAP 13 mEq/L (8-16); CALCIUM 8.6 mg/dL (8.5-10.4); CARBON DIOXIDE 25 mEq/l (22-31); CHLORIDE 96 mEq/L (97-110); CREATININE 0.9 mg/dL (0.6-1.0); GLOMERULAR FILTRATION RATE > 60; GLUCOSE 130 mg/dL (70-100); MAGNESIUM 1.9 mg/dL (1.6-2.3); POTASSIUM 4.2 mEq/L (3.5-5.2); SODIUM 134 mEq/L (134-144)
[2016-07-19 06:02] LABS: HYPOCHROMIA 2+; LARGE PLATELETS PRESENT; MICROCYTES 3+; PLATELET ESTIMATE INCREASED (ADEQ); POLYCHROMASIA 1+
[2016-07-19] MEDS: FUROSEMIDE 40 MG/4 ML VIAL IVP SCH ×2 (08:01→14:02)
[2016-07-19] MEDS: ASPIRIN EC 81 MG TAB PO SCH (08:01)
[2016-07-19] MEDS: ENOXAPARIN 40 MG/0.4 ML SYR SC SCH (08:01)
[2016-07-19] MEDS ORDERED: PNEUMOC 13-VAL CONJ-DIP CRM/PF 0.5 ML SYR IM ONE (08:11)
[2016-07-19] MEDS: NEBIVOLOL HCL 5 MG TAB PO SCH (10:51)
[2016-07-19 11:50] VITALS: BP 115/54; PULSE 69; RESP 20; TEMP 98.4; O2SAT 97
--- NOTE | 2016-07-19 12:00 | PDCARPN ---
Cardiology Progress Note Assessment/Plan: Assessment/plan: 65 y F with HTN, IFG, mild PHTN admitted / with hypoxic respiratory failure, likely HFpEF. Clinically improved with IV lasix and supplemental O2. Negative troponin 1. HFpEF: continue IV lasix. Transition to oral Lasix tomorrow. BNP has improved dramatically. Trigger may have been suboptimally controlled HTN and dietary indiscretion. 2. Hypoxia: as per #1. Other possibilities include pneumonia. Chest CT more suggestive of CHF. No PE 3. HTN; On Bystolic 4. IFG: outpt follow up 5. P Vera: baseline 6. Abnormal chest CT: seems to be pulmonary edema. Radiology recommends follow up imaging to survey ground glass opacities. Will sign off. The patient should follow up with Dr. Jo next week. 07/19/16 12:01 Subjective: she feels better. Shortness of breath is improved. Minimal cough. No chest pain. Reviewed/Discussed With: hospitalist Objective: Vital Signs (8 Hrs) Temp Pulse Resp BP Pulse Ox 07/19/16 11:50 36.9 C 69 20 115/54 L 97 07/19/16 07:31 36.6 C 64 18 105/52 L 99 07/19/16 04:00 37 C 75 20 118/60 91 L Intake/Output (24 Hrs) 07/18/16 07/19/16 07/20/16 05:59 05:59 05:59 Intake Total 350 2440 400 Output Total 300 Balance 350 2140 400 Intake: Oral (ml) 350 2440 400 Output: Urine (ml) 300 Toilet 300 Other: Weight 72.1 kg 70.3 kg Number of Voids Toilet 2 6 nuclear distress. JVP less than 10. Regular rate and rhythm with soft early systolic murmur left lower sternal border Lungs clear to auscultation bilaterally Extremities warm well perfused without cyanosis clubbing or edema Result Diagrams: 07/19/16 04:02 07/19/16 04:02 Telemetry: Normal sinus rhythm. Rare junctional beats. ICD10 Worksheet Patient Problems: Problems Problem Status Onset Chronic Disease Mgmt/Transitional Care Acute CHF (congestive heart failure) Acute Cardiomegaly Acute Elevated brain natriuretic peptide (BNP) level Acute
--- NOTE | 2016-07-19 17:34 | PDDCSUM ---
Discharge Summary Discharge Summary: DISCHARGE SUMMARY FOLLOW-UP ITEMS: Creatinine BUN and lytes to be repeated prior to next appointment, repeat chest CT as an outpatient once she is clinically resolved DATE OF ADMISSION: 07/17/16 DATE OF DISCHARGE: 07/18/2016 DISCHARGE DIAGNOSES: 1. Acute diastolic congestive heart failure exacerbation 2. Chronic hypertension 3. Chronic polycythemia 4. Acute hypoxic respiratory failure CONSULTATIONS: Cardiology by Dr. Sylvia Scales PROCEDURES / IMAGING: Echocardiogram demonstrating no focal wall motion abnormalities, hyperdynamic left ventricular, ejection fraction 70%, CT angiograms demonstrating congestive changes and bibasilar opacities CHIEF COMPLAINT: Acute shortness of breath SUBJECTIVE: Patient reports that she is feeling better and is able to ambulate with supplemental oxygen PHYSICAL EXAM ON DISCHARGE: Systolic blood pressure is 1/30, heart rate in the 70s, afebrile overnight, satting 83% on 4 L nasal cannula with ambulation, inspiratory crackles in the bilateral bases, not quite as pronounced as day prior, heart regular rate and rhythm, no lower extremity edema LABS ON DISCHARGE: Potassium 4.2, creatinine 0.9, white blood cell count 23,000, hemoglobin 10.1, influenza PCR negative HOSPITAL COURSE BY PROBLEM: 1. Acute diastolic congestive heart failure exacerbation. Evidenced by elevated BNP, interstitial infiltrates on chest imaging, symptomatic shortness of breath, JVD, notable hypoxia. Unclear precipitant, potentially high altitude pulmonary edema versus under controlled hypertension with diastolic dysfunction on echo and recent dietary indiscretions. She responded favorably to IV diuretics and supplemental oxygen. She was seen in consultation by Cardiology. Given that the patient immediately began feeling better with diuresis, and her o2 requirements have declined, she will be discharged home on oral lasix with close outpatient follow-up. 2. Chronic hypertension. Will continue the patient's home dosage of Bystolic and replaced her hydrochlorothiazide with Lasix. 3. Chronic polycythemia. Chronically elevated white blood cell count, suspect that the after mentioned chest imaging findings are secondary to CHF and not pneumonia. That being said, if the patient begins experiencing infectious symptoms would recommend that her outpatient providers consider antibiotics. At the present time, the patient is not expressing any infectious symptoms. 4. Acute hypoxic respiratory failure. Evidenced by SpO2 70% on room air, 83% on 4L NC w/ ambulation (P:F 142, which is severe acute lung injury per WHO criteria ), tachypnea and symptomatic shortness of breath, 2/2 acute dCHF. She required supplemental oxygen at time of discharge, and this need will be reassessed in the outpatient setting. DISCHARGE MEDICATIONS: Please see official discharge medication reconciliation sheet in chart , Lasix 40 mg twice daily with 10 mEq of potassium chloride daily. DISCHARGE INSTRUCTIONS: Please follow up with [facility] within the next 3 days and have labs drawn prior to that appointment. You will have your oxygen requirements reassessed in the clinic setting. TIME SPENT: Greater than 30 minutes were spent on direct patient care, as well as discharge planning and preparation.
== END 2016-07-19 14:12 | disposition home or self-care (01) | DRG 291 ==
LOC: F2W 16:07 → OBSVTOIN 17:26
PROVIDERS: ADMIT Hospitalist; ATTEND Internal Medicine
DX: I50.31 Acute diastolic (congestive) heart failure (principal); J96.01 Acute respiratory failure with hypoxia; I10 Essential (primary) hypertension; D45 Polycythemia vera; I27.2 Other secondary pulmonary hypertension; R73.09 Other abnormal glucose
CPT/HCPCS: 96374; 97161-GP; G8978-GP-CI; G8979-GP-CI; G8980-GP-CI; J1650; Q9967

== ENCOUNTER → 2016-08-17 | Outpatient (CLI) | payer OTHER, MEDICAID | LOC: FIMAGING 09:25 | PROVIDERS: ATTEND Family Medicine | DX: I50.9 Heart failure, unspecified (principal) ==

== ENCOUNTER → 2016-10-24 | Outpatient (CLI) | payer OTHER, MEDICAID | LOC: FIMAGING 10:44 | PROVIDERS: ATTEND Family Medicine | DX: R91.1 Solitary pulmonary nodule (principal); R16.1 Splenomegaly, not elsewhere classified ==

== ENCOUNTER → 2017-03-16 | Outpatient (CLI) | payer OTHER, MEDICAID ==
[~2017-03-16] MED LIST: IOPAMIDOL (ISOVUE 370) 100 ML BTL IV ONE
== END ==
LOC: FIMAGING 12:28
PROVIDERS: ATTEND Internal Medicine Hematology & Oncology
DX: I51.7 Cardiomegaly (principal); J90 Pleural effusion, not elsewhere classified; M79.89 Other specified soft tissue disorders; D68.59 Other primary thrombophilia
CPT/HCPCS: 71275; 93971; Q9967

== ENCOUNTER → 2017-04-25 | Outpatient (CLI) | payer OTHER, MEDICAID | LOC: BHFA 16:15 | PROVIDERS: ATTEND Internal Medicine Cardiovascular Disease | DX: I50.9 Heart failure, unspecified (principal) ==

== ENCOUNTER 2017-05-17 07:40 | Day surgery (SDC) | payer OTHER, MEDICAID ==
[2017-05-17] MEDS ORDERED: diphenhydrAMINE 25 MG CAP PO ONE (07:42)
[2017-05-17] MEDS ORDERED: NS 1,000 ML IV ONE (07:42)
[2017-05-17] MEDS ORDERED: DIAZEPAM 5 MG TAB PO ONE (07:42)
[2017-05-17] MEDS ORDERED: BENZOCAINE UNIT DOSE SPRAY HURRICAINE MM ONE (07:42)
[2017-05-17] MEDS ORDERED: ASPIRIN EC 325 MG TAB PO ONE (07:42)
[2017-05-17] MEDS ORDERED: FAMOTIDINE 20 MG TAB PO ONE (07:42)
[2017-05-17] MEDS ORDERED: MIDAZOLAM 2 MG/2 ML VIAL IVP ONE (07:42)
[2017-05-17] MEDS ORDERED: fentaNYL 100 MCG/2 ML INJ IVP ONE (07:42)
[2017-05-17 08:19] LABS: PLATELET COUNT 674 10^3/uL (150-400)
--- NOTE | 2017-05-17 08:29 | CPEKG ---
Heart Rate: 82 RR Interval: 732 P-R Interval: 188 QRSD Interval: 86 QT Interval: 372 QTC Interval: 435 P [place]: 29 QRS [place]: 52 T Wave [place]: 48 EKG Severity - ABNORMAL ECG - EKG Impression: SINUS RHYTHM EKG Impression: LEFT ATRIAL ABNORMALITY Electronically Signed By: Morgan Garcia 17-May-2017 13:02:24
[2017-05-17 08:33] LABS: INR 1.31 (0.83-1.16); PROTIME(PATIENT) 16.5 SEC (12.0-15.0)
--- NOTE | 2017-05-17 09:22 | PDPROPOC ---
Sedation Plan of Care Sedation Plan of Care: vital signs stable (hypoxia on room air), mental status noted, patient educated of risks, benefits, alternatives, patient can tolerate sedation ASA Classification: ASA 3 Planned drugs: fentanyl, midazolam Mallampati Score: Class 3 Mallampati Reference Image: Patient passed 3-3-2 rule?: No (patient is high risk airway and patient with resting hypoxemia)
--- NOTE | 2017-05-17 09:22 | PDHPUP ---
History & Physical Update H&P update statement: This history and physical update is based on an assessment of the patient which was completed after admission or registration (within 24 hours), but prior to the surgery/procedure. H&P update: H&P reviewed & patient examined, no change in patient's condition since H&P completed
[2017-05-17] MEDS ORDERED: fentaNYL 100 MCG/2 ML INJ ONE (09:31)
[2017-05-17] MEDS ORDERED: HEPARIN 10,000 UNIT/10 ML MDV (1,000 UNIT/ML) ONE (09:31)
[2017-05-17] MEDS ORDERED: IOPAMIDOL (ISOVUE-370) 150 ML BTL IV ONE (09:31)
[2017-05-17] MEDS ORDERED: VERAPAMIL 5 MG/2 ML VIAL ONE (09:31)
[2017-05-17] MEDS ORDERED: LIDOCAINE 1% 300 MG/30 ML SDV ONE (09:31)
[2017-05-17] MEDS ORDERED: MIDAZOLAM 2 MG/2 ML VIAL ONE (09:31)
--- NOTE | 2017-05-17 09:56 | PDDXCAT ---
Diagnostic Cath Note - . Date: 05/17/17 Embossed Or Impressed Lettering Painter: Sandro Indication: other (Hypoxia and shortness of breath with intermittent heart failure. NYHA Class III ) - Procedure Access: right groin Procedure: left heart catheterization, right heart catheterization - Materials Left Heart Cath size: 5F Left Heart Cath materials: standard multipack (JL4, JR4, pigtail) Right Heart Cath size: 7F Right Heart Cath materials: PWP catheter - Findings-Left Heart Catheterization LM: 8mm in size. It trifurcates into an LAD, Ramus and Circumflex system. It is widely patent without disease. LAD: LAD is 4mm in size and gives rise to an early diagonal which serves as a functional ramus vessel. BRYSON III flow throughout. LCX: Circumflex is 3.5mm in size and widely patent. RCA: 3mm in size and is dominant. It gives rise to the posterior descending and posterolateral branches. There is BRYSON III flow. EDP: 25mmHg LVEF: 65% with catheter induced mitral regurgitation under pressurized injection appears to be 2+ in severity. Subsequent ALEJANDRINA identified mild to moderate mitral regurgitation. Wall motion: No segmental wall motion abnormalities. - Findings-Right Heart Catheterization RA: Pressure: 21/18, mean 15mmHg. RV: Pressure: 58/7. End diastolic pressure is 16mmHg. PA: Saturation: 68.7%. Pressure: 58/26 PAOP: 21mmHg AO: 92.6% saturation CO: 4.15 L/min CI: 2.32 L/min/m2 Complications: None. Estimated blood loss: <50ml Closure method: Angioseal (Artery is closed with angioseal, Vein was closed with manual pressure.) Assessment: There is no evidence of flow limiting obstruction, dissection, or thrombus of the coronary arteries or the main right and left renal arteries. There is BRYSON III flow throughout. The patient has moderate to severe pulmonary hypertension with a highly trabeculated segment of the RV. Mild left to right shunt with O2 step up in the rightn heart most consistent with a mild bidirectional shunt. Plan: Medical management for CHF. Her transpulmonic gradient is 11mmHg between the mean PA and the LVED pressure. This would be most consistent with diastolic dysfunction and left heart failure as a cause for her pulmonary hypertension. She has biatrial enlargement on ALEJANDRINA and may be having episodes of atrial fibrillation and RVR, which would definitely cause flash pulmonary edema and hypoxia. I think she needs to be aggressively diuresed and consideration for beta blockade or calcium channel abhishek to help reduce the risk of a tachycardia induced heart failure episode. The ALEJANDRINA performed in mill laborer did not reveal a major shunt but bubble study was positive for a PFO. She has severe tricuspid regurgitation and elevated right atrial pressure at 20mmHg. She had mild to moderate MR and no other significant valvular heart disease. Please see the report under separate cover. Intervention: None. Patient Problems: Problems Problem Status Onset CHF (congestive heart failure) Acute Cardiomegaly Acute Chronic Disease Mgmt/Transitional Care Acute Elevated brain natriuretic peptide (BNP) level Acute
[2017-05-17] MEDS ORDERED: HYDROCODONE/APAP 5/325 TAB PO PRN (11:19)
[2017-05-17] MEDS ORDERED: OXYCODONE/APAP 5/325 TAB PO PRN (11:19)
[2017-05-17] MEDS ORDERED: NITROGLYCERIN 0.4 MG BTL SL PRN (11:19)
[2017-05-17] MEDS ORDERED: ATROPINE SULFATE 1 MG/10 ML SYR IVP PRN (11:19)
[2017-05-17] MEDS ORDERED: ONDANSETRON 4 MG/2 ML VIAL IVP PRN (11:19)
== END 2017-05-17 15:07 | disposition home or self-care (01) ==
LOC: FCATH 07:40
PROVIDERS: ATTEND Internal Medicine Cardiovascular Disease
PROC: 4A023N8 Measurement of Cardiac Sampling and Pressure, Bilateral, Percutaneous Approach (ICD-10-PCS; principal; 2017-05-17)
PROC: B245ZZ4 Ultrasonography of Left Heart, Transesophageal (ICD-10-PCS; principal; 2017-05-17)
DX: I50.32 Chronic diastolic (congestive) heart failure (principal); I27.20 Pulmonary hypertension, unspecified; R60.0 Localized edema; R73.03 Prediabetes
CPT/HCPCS: C1760; J1644; J2250; J3010; Q9967

== ENCOUNTER 2017-05-21 12:31 | Inpatient (IN) | payer OTHER, MEDICAID ==
--- NOTE | 2017-05-21 13:02 | CPEKG ---
Heart Rate: 60 RR Interval: 1000 P-R Interval: 168 QRSD Interval: 94 QT Interval: 416 QTC Interval: 416 P [place]: 33 QRS [place]: 56 T Wave [place]: 44 EKG Severity - ABNORMAL ECG - EKG Impression: SINUS RHYTHM EKG Impression: SUPRAVENTRICULAR BIGEMINY EKG Impression: PROBABLE LEFT ATRIAL ABNORMALITY Electronically Signed By: Miryam Cardenas 21-May-2017 15:27:18
[2017-05-21 13:07] LABS: PLATELET COUNT 716 10^3/uL (150-400)
--- NOTE | 2017-05-21 13:14 | EDPHY ---
H & P Stated Complaint: Low O2 sat/weak/SOB/orthopnea since heart cath 05/17 Time Seen by Provider: 05/21/17 12:51 HPI/ROS: CHIEF COMPLAINT: Short of breath, low on oxygen HISTORY OF PRESENT ILLNESS: This is a 66-year-old female with history of CHF, hypoxic and hypertension. She has been undergoing evaluation of worsening hypoxia. She saw a sternman 2 weeks ago and underwent cardiac catheterization by Dr. Jo on May 17. She also had ALEJANDRINA performed at that time. Following catheterization medical management for CHF was advised. The note indicates that she should be aggressively diuresed and considered for beta abhishek or calcium channel abhishek to minimize risk of heart failure induced by tachycardia. However, she tells me that she has not taken her Lasix for 6 days. She presents today with an increasing oxygen need at home. She has been using oxygen round the clock since her cardiac catheterization. Prior to that she was using it as on an as needed basis. She is now using 5 L to keep her saturations in the mid to high 80s. Room air pulse ox when she arrived here with 76%. She notes some that she has some eyelid swelling. She has not been aware of weight gain and does not have lower extremity edema. She is unable to lie flat without feeling as if she can't breathe. She is noticing palpitations or heart fluttering. She has not had chest pain. She has a mild cough. She is Omani speaking. Her daughter translates. REVIEW OF SYSTEMS: A ten point review of systems was performed and is negative with the exception of the items mentioned in the HPI. Past medical history: 1. CHF 2. HTN 3. Polycythemia vera 4. Pulmonary HTN Past surgical history: 1. Appendectomy 2. Hernia repair Family history: HTN, DM, CVA Social history: She is here with her daughter, has two children. No alcohol or tobacco. She is . General Appearance: Alert. Vital signs reviewed. Blood pressure 143/51. )2 Sat 76% on RA. Eyes: Pupils equal and round, no conjunctival injection, no discharge. Anicteric. There is some bilateral eyelid edema. ENT, Mouth: Mucous membranes are moist, no oropharyngeal erythema or edema. Neck: No lymphadenopathy, supple. No JVD> Cardiovascular: Bigeminy; no murmur, rub, or gallop. Lungs: CTA, no wheezes, no rales. no gallop. Gastrointestinal: Abdomen is soft and nontender, no masses or organomegaly, bowel sounds normal. Skin: Warm and dry, no rashes on exposed skin, normal color. Back: Nontender to palpation over the thoracolumbar spine. No CVAT. Extremities: No lower extremity edema, no calf tenderness or swelling. Neurological: Alert and oriented. Moving all four extremities easily and equally. Psychiatric: Normal affect. - Personal History Current Tetanus Diphtheria and Acellular Pertussis (TDAP): Unsure - Medical/Surgical History Hx Asthma: No Hx Chronic Respiratory Disease: No Hx Diabetes: No Hx Cardiac Disease: Yes Hx Renal Disease: No Hx Cirrhosis: No Hx Alcoholism: No Hx HIV/AIDS: No Hx Splenectomy or Spleen Trauma: No Other PMH: POLYCYTHEMIA/HTN. heart cath 05/17/17 - Social History Smoking Status: Never smoked Constitutional: Initial Vital Signs Temperature (C) 36.5 C 05/21/17 12:35 Heart Rate 78 05/21/17 12:35 Respiratory Rate 18 05/21/17 12:35 Blood Pressure 143/51 H 05/21/17 12:35 O2 Sat (%) 76 L 05/21/17 12:35 O2 Delivery Mode Nasal Cannula O2 (L/minute) 5 Allergies/Adverse Reactions: No Known Allergies Allergy (Verified 05/21/17 12:36) Home Medications: Medication Instructions Recorded Aspirin EC [Aspirin EC 81 mg (*)] 81 mg PO DAILY 05/10/17 Cholecalciferol Vit D3 [Vitamin D3 1,000 units PO DAILY 05/10/17 (*)] Furosemide [Lasix 40 MG (*)] 60 mg PO DAILY 05/10/17 Nebivolol HCl [Bystolic 5 mg (*)] 5 mg PO BID 05/10/17 Propylene Glycol/Peg 400 [SYSTANE 1 drop EACHEYE DAILY PRN 05/17/17 0.3-0.4% EYE DROPS] Albuterol [Proventil Inhaler HFA 2 puffs IH Q4HRS PRN #1 mdi 05/24/17 (*)] Doxycycline Hyclate 100 mg PO BID #10 tab 05/24/17 metFORMIN HCL [Glucophage 500 mg 500 mg PO DAILY #0 05/24/17 (*)] Medical Decision Making - Diagnostics EKG Interpretation: EKG interpreted by emergency department physician. ED Course/Re-evaluation: Acute hypoxemic respiratory failure, likely secondary to CHF--likely diastolic heart failure, which she is known to have based on recent ALEJANDRINA. IV Lasix given in ED. CXR shows mild interstitial edema and also a question of pneumonitis with patchy bilateral airspace consolidation. She does not present with cough or fever or other signs of infection. But pneumonia/pneumonitis a consideration. She is not septic. Influenza negative, full respiratory panel pending. Elevated WBC and platelets are consistent with previous labs. Hgb of 9 which is in line with previous values, she is known to have P Vera. Troponin WNL, doubt ACS. No chest pain. EKG shows sinus rhythm, supraventricular bigeminy. She is being admitted to the hospitalist service. She has been breathing comfortably on 5L NC with O2 sats in the 90s. Differential Diagnosis: Shortness of breath including but not limited to pulmonary infectious process, COPD, asthma, pulmonary embolus and congestive heart failure. - Data Points Laboratory Results: Laboratory Results 05/21/17 13:00 05/21/17 13:00 Medications Given: Discontinued Medications Acetaminophen (Tylenol) 650 mg PO Q4HRS PRN PRN Reason: Pain, Mild/Fever, Can Take PO Stop: 11/17/17 14:37 Last Admin: 05/21/17 21:53 Dose: 650 mg Cholecalciferol (Vitamin D) 1,000 units PO DAILY MICHEAL Stop: 11/18/17 08:59 Last Admin: 05/24/17 08:45 Dose: 1,000 units Enoxaparin Sodium (Lovenox) 40 mg SC DAILY MICHEAL Stop: 11/18/17 08:59 Last Admin: 05/24/17 08:45 Dose: 40 mg Furosemide (Lasix Injection) 40 mg IVP EDNOW ONE Stop: 05/21/17 13:54 Last Admin: 05/21/17 14:13 Dose: 40 mg Furosemide (Lasix Injection) 40 mg IVP BID@0900,1500 MICHEAL Stop: 11/18/17 09:29 Last Admin: 05/23/17 16:51 Dose: Not Given Furosemide (Lasix Injection) 40 mg IVP ONCE ONE Stop: 05/24/17 10:53 Last Admin: 05/24/17 11:35 Dose: 40 mg Insulin Human Lispro (Humalog Lispro) 0 unit SC TIDMEAL [facility] PRN Reason: Protocol Stop: 11/18/17 07:59 Last Admin: 05/24/17 13:59 Dose: Not Given Levofloxacin (Levaquin) 750 mg PO DAILY AT 10AM [facility] PRN Reason: Protocol Stop: 06/23/17 09:59 Last Admin: 05/24/17 08:45 Dose: 750 mg Nebivolol (Bystolic) 5 mg PO DAILY [facility] Stop: 11/18/17 08:59 Last Admin: 05/24/17 08:45 Dose: 5 mg Departure - Departure Disposition: [facility] Acute Clinical Impression: Hypoxia Congestive heart failure (CHF) Qualifiers: Congestive heart failure type: unspecified congestive heart failure type Congestive heart failure chronicity: acute Qualified Code(s): I50.9 - Heart failure, unspecified Condition: Fair
[2017-05-21] MEDS ORDERED: FUROSEMIDE 40 MG/4 ML VIAL IVP ONE (13:53)
[2017-05-21] MEDS ORDERED: ALBUTEROL 60 PUFFS/8 GM MDI IH PRN (14:38)
[2017-05-21] MEDS ORDERED: LORazepam 0.5 MG TAB PO PRN (14:38)
[2017-05-21] MEDS ORDERED: ZOLPIDEM TARTRATE 5 MG TAB PO PRN (14:38)
[2017-05-21] MEDS ORDERED: ACETAMINOPHEN 325 MG TAB PO PRN (14:38)
[2017-05-21] MEDS ORDERED: LORazepam 2 MG/ML INJ IVP PRN (14:38)
[2017-05-21] MEDS ORDERED: OXYCODONE/APAP 5/325 TAB PO PRN (14:38)
[2017-05-21] MEDS ORDERED: ALBUTEROL 3 ML DEYVIAL IH PRN (14:38)
[2017-05-21] MEDS ORDERED: ONDANSETRON DISINTEGRATING 4 MG TAB PO PRN (14:38)
[2017-05-21] MEDS ORDERED: ONDANSETRON 4 MG/2 ML VIAL IVP PRN (14:38)
[2017-05-21 15:12] LABS: CREATINE KINASE < 20 IU/L (0-156)
[2017-05-21] MEDS ORDERED: TEARS/DEXTRAN 70/HYPROMELLOSE 15 ML OPHT.BTL EACHEYE PRN (15:17)
--- NOTE | 2017-05-21 15:38 | GHP ---
[f rep st] HISTORY AND PHYSICAL DATE OF ADMISSION: 05/21/2017 CHIEF COMPLAINT: Shortness of breath and hypoxemia. HISTORY OF PRESENT ILLNESS: This is a 66-year-old female with a known prior history of diastolic heart failure and a known left to right shunt who presents with shortness of breath. The patient was recently diagnosed with diastolic dysfunction with a known EF of 67% by both cardiac catheterization and a ALEJANDRINA 5 days prior to admission. Prior to that, she has been noted to be intermittently hypoxic and had required p.r.n. oxygen at home at 2 L/min. Following the cardiac catheterization she has had persistent shortness of breath , orthopnea without PND. She has also noted some palpitations but no peripheral edema or chest pain. Four days prior to admission she had a slight sore throat, which was only 1 side which he attributed to the ALEJANDRINA which had been done 1 day prior to the onset of the sore throat. There was a low-grade fever at 37.2 four days prior to admission and then 3 days [employer] she felt better but then worse 2 days [employer] and now presents. As stated she has known hypoxemia which she uses O2 at 2 L/minute on a p.r.n. basis but has required 5 L/minute at home. She also has known polycythemia vera and has been undergoing phlebotomies for quite some time usually on an every [address] Jennifer Calabrese. There has been no history of a GI bleed and she has not noted any black or tarry stools. She also has no known history of coronary artery disease but does have known pulmonary hypertension by cardiac catheterization and by cardiac echo. By catheterization she also has left to right shunt of a non-quantified nature. Unfortunately following her ALEJANDRINA 5 days [employer] she stopped both her Lasix and metformin and now presents short of breath. She denies having chest pain, cough except when taking a deep breath and there is no sputum production, back pain or abdominal pain. She also denies having heartburn, reflux, change in bowels or dysuria. PAST MEDICAL HISTORY: 1. Diastolic heart failure by recent ALEJANDRINA and cardiac catheterization classified as NYHA class II. 2. Hypertension, essential. 3. Pulmonary hypertension. 4. Known impaired fasting glucose although the patient denies being diabetic. 5. Polycythemia vera for which she receives phlebotomies through Dr. Renu Calabrese. PAST SURGICAL HISTORY: 1. Appendectomy. 2. Hernia repair. MEDICATIONS: List includes aspirin 81 mg a day, Bystolic 5 mg daily, Lasix 40 mg daily, Vitamin D3. ALLERGIES: None. FAMILY HISTORY: Positive for CVA, diabetes mellitus type 2 and a family history of hypertension. SOCIAL HISTORY: She has 2 children, grown and healthy. Alcohol, she has never drank alcohol. Caffeine usually uses caffeine formally but none now. The patient is . Usually exercises in a light degree by walking. Tobacco, none. She has never smoked. IMMUNIZATIONS: Show a flu vaccine in 2017. REVIEW OF SYSTEMS: A 10-point review of systems is entirely negative except as noted above. PHYSICAL EXAM: GENERAL: A pleasant female who appears in no distress. VITAL SIGNS: She has very mild hypertension 143/69, heart rate is 60 to 70 sinus rhythm on the senior insight manager to my reading, respiratory rate is 18 to 20, nonlabored, she has adequate oxygenation with supplemental oxygen at 5 L/ minute. She is also afebrile. HEENT: The posterior oropharynx is nonerythematous without exudate. The tongue and buccal mucosa are normal. There is no adenopathy noted in the neck. Her pupils are PERRL and the scleras anicteric. Chest wall nontender to palpation. LUNGS: Clear to P and A, although deep breaths do cause a cough which is dry and nonproductive. HEART: Singular S1, physiologically split S2. Very soft FLAKITO at the LSB without a gallop. ABDOMEN: Slightly overweight. Normoactive bowel sounds. No masses, tenderness or organomegaly. EXTREMITIES: No edema, cyanosis, or clubbing. No palpable cords. Negative Homans sign. Joints noninflamed, nontender. Full active range of motion of the major joints. LABORATORY: Hemoglobin is 9.7, which is approximately in the usual range in which she is managed over the last year. WBC is elevated at 21,500, but again this is elevated and has been in this range for the last 12 months. Platelet count again also was elevated at 716,000 and again is within her normal range. Coagulation shows an elevated INR 1.31 with a D-dimer slightly elevated at 0.81. Chemistry panel is entirely normal except for a slightly elevated glucose of 111 but a BNP of 2200. A respiratory panel by PCR shows it is negative for influenza A and B, and the rest of the respiratory panel is still pending. Chest x-ray shows cardiomegaly and pulmonary congestion along with some alveolar infiltration both the left and right lungs along with a left pleural effusion. This x-ray reading as to my reading on the Spelter system. ECG reveals sinus rhythm and a supraventricular bigeminy with a left atrial abnormality present. There are no acute ST-T wave changes. ASSESSMENT: 1. Acute hypoxemia likely secondary to acute decompensated diastolic congestive heart failure. The patient admits that she has not been taking her Lasix and has known diastolic congestive heart failure class II, by cardiac catheterization and cardiac echo recently. Her ejection fraction is known to be approximately 67% but there is a left to right shunt present with moderate pulmonary hypertension. Thus any elevation of her left-sided pressures will worsen her left to right shunt and worsen hypoxemia. In addition, any worsening of her diastolic function will raise her left heart pressure and thus increase a [id number] shunt thus resulting in worsening hypoxemia. Therefore I think we can diurese her gently. Her BNP is elevated at 2200 yet the troponin is within normal limits. We will obtain serial troponins, obtain another cardiac echo and follow or oxygenation and daily weights. 2. Diabetes mellitus. She is currently mildly hyperglycemic and a hemoglobin A1c will be obtained. We will follow her glucose and cover appropriately. 3. Polycythemia vera. She appears to be at her baseline. Her last phlebotomy was April 27, 2017. Again her WBC is known to be elevated along with her platelet count also and both her platelets, WBC and hemoglobin are within the usual range. 4. High blood pressure: will follow; treat if needed. Will restart home medications. I doubt a pulmonary embolus although her D-dimer is slightly elevated. We have adequate clinical findings to explain her worsening hypoxemia. Should this not improve or should she develop further tachycardia a CTA will be considered. I have ordered a cardiac echo but have not obtained a cardiac consultation at this time as she has no known history of coronary disease and we have adequate explanation for her hypoxemia. 1. Her code status is full. Her daughter is her POA. Deep venous thrombosis prophylaxis will be with Lovenox and early ambulation. 2. The patient will be admitted to inpatient status as it is likely to require more than 1 to 2 days hospitalization to resolve this lady's hypoxemia at a baseline. In addition, a respiratory panel is pending to rule out any infectious causes. TIME: 55 minutes. /[id number]/MODL MTDD
--- NOTE | 2017-05-21 16:07 | ECHO ---
[email or web address] [address] [address] Main: [phone] Fax: Transthoracic Echocardiogram Name: RODOLFO POSADAS MR#: [id number] Study Date: 05/21/2017 Study Time: 03:03 PM Date of : 1950 Age: 66 year(s) Height: 152.4 cm (60 in.) Weight: 69.85 kg (154 lb.) BSA: 1.67 m2 Gender: Female Examination: Echo Indication: Shortness of breath, Decreased 02 Sats Image Quality: Contrast: Requested by: Julio Elizondo BP: 145 mmHg/61 mmHg Heart Rate: Rhythm: Indication: Shortness of breath, Decreased 02 Sats Procedure Staff It Systems Administrator: Rakesh Cerda [facility] Reading Physician: Adam Terrell Requesting Provider: Conclusions: Normal left ventricular systolic function. Mild left atrial enlargment. RVSP is midly elevated. Measurements: Chambers Valvular Assessment AV/MV Valvular Assessment TV/PV Normal Normal Normal Name Value Range Name Value Range Name Value Range Ao Rosario (MM): 2.5 cm (2.2 cm-3.7 MV E Vmax: 0.82 m/s ( - ) TR Vmax: 3.69 mm/s ( - ) cm) MV A Vmax: 1.24 m/s ( - ) TR PGmax: 54 mmHg ( - ) IVSd (2D): 0.9 cm (0.6 cm-1.1 MV E/A: 0.66 ( - ) syst. PAP: 64 mmHg ( - ) cm) PV Vmax: 1.11 m/s (0.6 m/s-0.9 LVDd (2D): 4.6 cm (3.9 cm-5.3 m/s) cm) PV PGmax: 5 mmHg ( - ) LVDs (2D): 2.9 cm (2.1 cm-4 cm) LVPWd (2D): 0.9 cm ( - ) LVEF (2D): 67 (>=54 %) Continued Measurements: Chambers Valvular Assessment AV/MV Valvular Assessment TV/PV Name Value Name Value Name Value LADs Lon.8 cm MV E/E' Septal: 24.90 CVP (est.): 10 mmHg LA Area: 23.0 cm2 MV E/E' Lateral: 13.40 LA Volume: 61 ml LA Volume Index: 36.5 ml/m2 Findings: Left Ventricle: Normal size left ventricle. No LV hypertrophy. Normal global systolic LV function. EF is 67 %. No Patient: RODOLFO POSADAS Study Date: 05/21/2017 Page 1 of 2 03:03 PM regional wall motion abnormality. Diastolic dysfunction is present. . Right Ventricle: Normal size right ventricle. Normal RV function. Left Atrium: The left atrium is mildly dilated. Known PFO noted by coloflow and a agitated bubble exam with a aneurysmal septum from ALEJANDRINA performed 05/17/17. Right Atrium: The right atrium is normal in size. Mitral Valve: The mitral valve is normal in appearance and function. Mild mitral valve regurgitation is present. Aortic Valve: The aortic valve is tri-leaflet and functions normally. Tricuspid Valve: Mild tricuspid regurgitation is present. The pulmonary artery pressure is moderately increased. Pulmonic Valve: The pulmonic valve is normal in appearance and function. Aorta: The aorta is normal. Pericardium: No pericardial effusion. (No Signature Object) Patient: RODOLFO POSADAS Study Date: 05/21/2017 Page 2 of 2 03:03 PM [id number]
--- NOTE | 2017-05-21 16:43 | PDMN ---
Medical Necessity Medical necessity: Pt meets IP criteria per MD; est los >2 mn for eval/tx of acute hypoxemia secondary to acute decompensated diastolic heart failure; admit for further workup/monitoring, IV diuresis & therapies; hx diastolic heart failure, htn, pulmonary htn, polycythemia vera, diabetes; per H&P & order 05/21/17
[2017-05-21] MEDS ORDERED: D50W 25 GM/50 ML SYR IVP PRN (19:36)
[2017-05-22 05:03] LABS: PLATELET COUNT 564 10^3/uL (150-400)
[2017-05-22] MEDS: INSULIN LISPRO 100 UNIT/ML SC SCH ×3 (09:21→18:22)
[2017-05-22] MEDS: ENOXAPARIN 40 MG/0.4 ML SYR SC SCH (09:33)
[2017-05-22] MEDS: NEBIVOLOL HCL 5 MG TAB PO SCH (09:34)
[2017-05-22] MEDS: CHOLECALCIFEROL VIT D3 1,000 UNITS TAB PO SCH (09:34)
--- NOTE | 2017-05-22 09:36 | ASMTCASEMG ---
Living Arrangements What is your living Answers: Alone arrangement? Who do you live with? Type Of Residence What kind of residence do Answers: House you live in? Discharge Plan Comments Coordination Status Comments Notes: Pt is a 66 y/o female admitted for hypoxia and pneumonitis. Pt had a ALEJANDRINA and a cardiac catherization recently. Pt has a hx of hypertension, pulmonary hypertension and polycythemia vera. Pt is being followed by transition care. OT has been ordered and awaiting recommendations. Needs are TBD at this time. CM to follow. Plan: TBD Date Signed: 05/22/2017 09:36 AM Electronically Signed By:JAYRO Silver
[2017-05-22] MEDS: FUROSEMIDE 40 MG/4 ML VIAL IVP SCH ×2 (09:40→15:25)
--- NOTE | 2017-05-22 09:49 | CPEKG ---
Heart Rate: 63 RR Interval: 952 P-R Interval: 168 QRSD Interval: 90 QT Interval: 412 QTC Interval: 422 P [place]: 6 QRS [place]: 52 T Wave [place]: 39 EKG Severity - ABNORMAL ECG - EKG Impression: SINUS RHYTHM EKG Impression: MULTIPLE ATRIAL PREMATURE COMPLEXES Electronically Signed By: Tacho Caldera 22-May-2017 16:07:23
--- NOTE | 2017-05-22 10:00 | HOSPPROG ---
Hospitalist Progress Note Assessment/Plan: # acute on chronic hypoxic resp failure - suspect d/t CHF although odd that she has no edema - recheck CXR tomorrow - if no change will get CT # suspected acute dCHF exacerbation - cont lasix 40 iv bid - check CXR tomorrow # htn - cont bystolic # p-htn - wants to f/u with Dr Tatum # polycythemia vera - sees Dr Calabrese - occasional phlebotomies; labs about baseline # DM - on metformin - hold currently - cont ssi # dvt ppx - lovenox Subjective: feels slightly better today; seen with her daughter on the phone Objective: Vital Signs Temp Pulse Resp BP Pulse Ox 36.6 C 65 22 H 134/59 H 91 L 05/22/17 07:40 05/22/17 07:40 05/22/17 07:40 05/22/17 07:40 05/22/17 07:40 Microbiology 05/21/17 15:00 Respiratory Panel (PCR) - Final Nasal, Sinus - Swab No Organism Detected Laboratory Results 05/22/17 04:33 05/22/17 04:33 05/21/17 05/22/17 05/23/17 05:59 05:59 05:59 Intake Total 1400 Output Total 2100 Balance -700 chart reviewed CXR personally reviewed - Physical Exam Constitutional: no apparent distress, appears nourished Cardiovascular: regular rate and rhythym, no murmur, rub, or gallop Respiratory: no respiratory distress, inspiratory crackles, No dullness to percussion, No rhonchi Gastrointestinal: soft, non-tender abdomen, no palpable masses ICD10 Worksheet Patient Problems: Problems Problem Status Onset Chronic Disease Mgmt/Transitional Care Acute CHF (congestive heart failure) Acute Cardiomegaly Acute Elevated brain natriuretic peptide (BNP) level Acute
--- NOTE | 2017-05-22 15:43 | ASMTCMCOM ---
CM Note CM Note Notes: CM reviewed OT's recommendations. OT is recommending home without any needs. Pt will most likely be able to d/c independent when medically stable. CM available for changes. Plan: Independent Date Signed: 05/22/2017 03:43 PM Electronically Signed By:JAYRO Silver
[2017-05-23 05:16] LABS: PLATELET COUNT 614 10^3/uL (150-400)
[2017-05-23] MEDS: INSULIN LISPRO 100 UNIT/ML SC SCH ×3 (09:47→17:41)
[2017-05-23] MEDS: ENOXAPARIN 40 MG/0.4 ML SYR SC SCH (09:47)
[2017-05-23] MEDS: NEBIVOLOL HCL 5 MG TAB PO SCH (09:47)
[2017-05-23] MEDS: CHOLECALCIFEROL VIT D3 1,000 UNITS TAB PO SCH (09:47)
[2017-05-23] MEDS: FUROSEMIDE 40 MG/4 ML VIAL IVP SCH ×2 (09:47→16:51)
--- NOTE | 2017-05-23 16:07 | HOSPPROG ---
Hospitalist Progress Note Assessment/Plan: # acute on chronic hypoxic resp failure - suspect d/t CHF although odd that she has no edema - check CT today, will r/o PE also # suspected acute dCHF exacerbation - lasix 40 iv bid -hold with IV contrast # htn - cont bystolic # p-htn - wants to f/u with Dr Tatum # polycythemia vera - sees Dr Calabrese - occasional phlebotomies; labs about baseline # DM - on metformin - hold currently - cont ssi # dvt ppx - lovenox Subjective: feels better today Objective: Vital Signs Temp Pulse Resp BP Pulse Ox 36.7 C 68 19 119/53 L 95 05/23/17 11:21 05/23/17 11:21 05/23/17 11:21 05/23/17 11:21 05/23/17 11:21 Laboratory Results 05/23/17 04:27 05/23/17 04:27 05/22/17 05/23/17 05/24/17 05:59 05:59 05:59 Intake Total 1400 100 Output Total 2100 2100 150 Balance -700 -2000 -150 CXR personally reviewed - Physical Exam Constitutional: no apparent distress, appears nourished Eyes: anicteric sclera Cardiovascular: regular rate and rhythym, no murmur, rub, or gallop Respiratory: no respiratory distress, inspiratory crackles (bilat bases), No expiratory wheeze, No bronchial breath sounds Gastrointestinal: No distension Skin: warm Musculoskeletal: full muscle strength Neurologic: AAOx3 Psychiatric: not anxious ICD10 Worksheet Patient Problems: Problems Problem Status Onset CHF (congestive heart failure) Acute Hypoxia Acute Cardiomegaly Acute Chronic Disease Mgmt/Transitional Care Acute Elevated brain natriuretic peptide (BNP) level Acute
[2017-05-23] MEDS ORDERED: IOPAMIDOL (ISOVUE 370) 100 ML BTL IV ONE (17:26)
[2017-05-24 04:41] VITALS: RESP 18; TEMP 98.1
[2017-05-24 05:59] LABS: PLATELET COUNT 550 10^3/uL (150-400)
[2017-05-24 07:59] VITALS: BP 129/56; PULSE 62
[2017-05-24] MEDS: CHOLECALCIFEROL VIT D3 1,000 UNITS TAB PO SCH (08:45)
[2017-05-24] MEDS: NEBIVOLOL HCL 5 MG TAB PO SCH (08:45)
[2017-05-24] MEDS: ENOXAPARIN 40 MG/0.4 ML SYR SC SCH (08:45)
[2017-05-24] MEDS: INSULIN LISPRO 100 UNIT/ML SC SCH ×2 (10:32→13:59)
[2017-05-24] MEDS ORDERED: FUROSEMIDE 20 MG/2 ML VIAL IVP ONE (10:52)
--- NOTE | 2017-05-24 11:25 | PDIAF ---
- Diagnosis Diagnosis: Heart Failure Code Status: Full Code - Medication Management Discharge Medications: Medications to Continue on Transfer Aspirin EC [Aspirin EC 81 mg (*)] 81 mg PO DAILY 05/10/17 [Last Taken 05/21/17] Cholecalciferol Vit D3 [Vitamin D3 (*)] 1,000 units PO DAILY 05/10/17 [Last Taken 05/21/17] Furosemide [Lasix 40 MG (*)] 60 mg PO DAILY 05/10/17 [Last Taken 05/16/17] Nebivolol HCl [Bystolic 5 mg (*)] 5 mg PO BID 05/10/17 [Last Taken 05/21/17 09: 00] Propylene Glycol/Peg 400 [SYSTANE 0.3-0.4% EYE DROPS] 1 drop EACHEYE DAILY PRN 05/17/17 [Last Taken 05/20/17] Albuterol [Proventil Inhaler HFA (*)] 2 puffs IH Q4HRS PRN #1 mdi 05/24/17 [ Last Taken Unknown] Doxycycline Hyclate 100 mg PO BID #10 tab 05/24/17 [Last Taken Unknown] metFORMIN HCL [Glucophage 500 mg (*)] 500 mg PO DAILY #0 05/24/17 [Last Taken ] Discharge Medications: Refer to the Discharge Home Medication list for PRN reason. - Orders Services needed: Home Care, Registered Nurse, Certified Television Analyzer, Physical Therapy, Occupational Therapy Home Care Face to Face: I certify that this patient was under my care and that I had the required [id number] encounter meeting the encounter requirements on the discharge day. My findings support the fact that the patient is homebound as defined in Home Care Face to Face Continued: CMS Chapter 7 Medicare Benefits Manual 30.1.1 , The condition of the patient is such that there exists a normal inability to leave home and consequently, leaving home would require a considerable and taxing effort. Isolation Type: None Diet Recommendation: no restrictions on diet - Follow Up Care Current Providers and Referrals: JONATAN HERNADEZ [Primary Care Provider] - As per Instructions August Jo MD [Medical Doctor] -
--- NOTE | 2017-05-24 11:26 | PDHOMEO2F ---
Home Oxygen Face to Face Home Orders: I certify that a physician or a nurse practitioner or physician's health assistant has had a [id number] encounter with this patient on the date of this order due to the diagnosis listed, which relates to the primary reason the patient requires home oxygen. Alternative treatments have been tried, or considered, and deemed ineffective. It is anticipated that supplemental oxygen will result in improvement with treatment. Home oxygen qualifying diagnosis: CHF SpO2 on room air (%): 76 Frequency of home oxygen needed: continuous Home oxygen liters per minute: 2 Home oxygen delivery device: nasal cannula Concentrator: Yes E-tanks for mobility and back up: Yes If ordering portable O2, is the patient mobile in the home?: Yes I certify that, based on these findings, the home oxygen is medically necessary for this patient for the following length of time. Length of time home oxygen needed: 99 years
--- NOTE | 2017-05-24 11:45 | GDS ---
[f rep st] DISCHARGE SUMMARY DIAGNOSES: 1. Acute on chronic hypoxic respiratory failure. 2. Acute diastolic congestive heart failure exacerbation. 3. Hypertension. 4. Pulmonary hypertension. 5. Suspected underlying pneumonia. 6. Polycythemia vera. 7. Diabetes mellitus type 2. HOSPITAL COURSE: 66-year-old female, admitted with worsening shortness of breath. She underwent a r ight and left heart cath 4 days prior to presentation. She misunderstood after this that she should stop furosemide. Since then, she has felt more short of breath. Her chest x-rays have a somewhat at ypical pattern, which appears to be interstitial, certainly could be pulmonary edema. This appearanc e has been somewhat persistent for some time. Because of this, I got a CT scan, which also showed po ssible left lower lobe pneumonia. I think, given these findings, it is reasonable to treat her with a short course of oral antibiotics. She is followed closely by Cardiology. If, with appropriate diu resis, her interstitial edema does not resolve, would consider referral to Pulmonology for considerat ion of a primary pulmonary process. I have discharged her on 60 mg of Lasix daily, which is her prev ious home dose. We will also give her a 5-day course of doxycycline, given the suspected underlying pneumonia seen on chest x-ray as well as CT scan. I discussed all this with the patient as well as h er daughter. She has polycythemia vera. She follows with Dr. Calabrese. She has diabetes. I have held her metformin for 2 days, since she got contrast on 05/24/2017. BILLING: I spent less than 30 minutes on the day of discharge coordinating care. /[id number]/MODL
[2017-05-24 11:54] VITALS: O2SAT 77
== END 2017-05-24 15:10 | disposition home or self-care (01) | DRG 291 ==
LOC: F3E 15:00
PROVIDERS: ADMIT Internal Medicine Pulmonary Disease; ATTEND Internal Medicine Pulmonary Disease
DX: I11.0 Hypertensive heart disease with heart failure (principal); I50.31 Acute diastolic (congestive) heart failure; J18.9 Pneumonia, unspecified organism; J96.21 Acute and chronic respiratory failure with hypoxia; I27.20 Pulmonary hypertension, unspecified; E11.9 Type 2 diabetes mellitus without complications; D45 Polycythemia vera
CPT/HCPCS: 96374; 97165-GO; G8987-GO-CJ; G8988-GO-CI; G8989-GO-CI; J1650; J1815; J1940; Q9967

== ENCOUNTER → 2017-08-24 | Outpatient (CLI) | payer OTHER, MEDICAID | LOC: BHFA 10:30 | PROVIDERS: ATTEND Internal Medicine Cardiovascular Disease | DX: R93.8 Abnormal findings on diagnostic imaging of other specified body structures (principal); I50.32 Chronic diastolic (congestive) heart failure; I50.30 Unspecified diastolic (congestive) heart failure; R94.31 Abnormal electrocardiogram [ECG] [EKG]; I10 Essential (primary) hypertension; R09.02 Hypoxemia; I27.20 Pulmonary hypertension, unspecified; R06.02 Shortness of breath; R73.03 Prediabetes; D64.9 Anemia, unspecified; D47.3 Essential (hemorrhagic) thrombocythemia; D72.829 Elevated white blood cell count, unspecified ==

== ENCOUNTER → 2017-12-26 | Outpatient (CLI) | payer OTHER, MEDICAID | LOC: FIMAGING 12:48 | PROVIDERS: ATTEND Physician Assistant Medical | DX: I51.7 Cardiomegaly (principal); R91.1 Solitary pulmonary nodule; I50.30 Unspecified diastolic (congestive) heart failure; R16.1 Splenomegaly, not elsewhere classified | CPT/HCPCS: 71275; Q9967; 82565-PO ==

== ENCOUNTER 2018-01-08 10:37 | Inpatient (IN) | payer OTHER, MEDICAID ==
[2018-01-08] MEDS ORDERED: FUROSEMIDE 40 MG/4 ML VIAL IVP ONE (11:09)
--- NOTE | 2018-01-08 11:13 | EDPHY ---
H & P Stated Complaint: CHF IN PAST /INCREASING O2 REQUIREMENT AT HOME SAW PULMONOLOGY /CARDS/NOT BE Time Seen by Provider: 01/08/18 11:03 HPI/ROS: CHIEF COMPLAINT: Hypoxia HISTORY OF PRESENT ILLNESS: Patient is a 67-year-old female with a history of congestive heart failure as well as pulmonary hypertension and chronic hypoxic respiratory failure as well as polycythemia vera and diabetes. She has had to gradually increase her oxygen over the last several months. She used to only using it as needed but now wears a constantly and has had to turn it from 1-2 to 3 L over the last month. She has not had a fever. She denies chest pain. No significant swelling or edema. Her daughter states that the supervisor landscape sent them to the risk management specialist in the risk management specialist sent them to the supervisor landscape and that no one can figure out exactly why she has had increased oxygen requirements. No GI symptoms. Severity: Moderate Modifying factors: Improves with oxygen REVIEW OF SYSTEMS: Constitutional: denies: chills, fever, recent illness, recent injury EENTM: denies: blurred vision, double vision, nose congestion Respiratory: See HPI Cardiac: denies: chest pain, irregular heart rate, lightheadedness, palpitations Gastrointestinal/Abdominal: denies: abdominal pain, diarrhea, nausea, vomiting, blood streaked stools Genitourinary: denies: dysuria, frequency, hematuria, pain Musculoskeletal: denies: joint pain, muscle pain Skin: denies: lesions, rash, jaundice, bruising Neurological: denies: headache, numbness, paresthesia, tingling, dizziness, weakness Hematologic/Lymphatic: denies: blood clots, easy bleeding, easy bruising Immunologic/allergic: denies: HIV/AIDS, transplant 10 systems reviewed and negative except as noted EXAM: GENERAL: Well-appearing, well-nourished and in no acute distress. HEAD: Atraumatic, normocephalic. EYES: Pupils equal round and reactive to light, extraocular movements intact, sclera anicteric, conjunctiva are normal. ENT: TMs normal, nares patent, oropharynx clear without exudates. Moist mucous membranes. NECK: Normal range of motion, supple without lymphadenopathy or JVD. LUNGS: Bilateral crackles the bases HEART: Regular rate and rhythm without murmurs, rubs or gallops. ABDOMEN: Soft, nontender, normoactive bowel sounds. No guarding, no rebound. No masses appreciated. BACK: No CVA tenderness, no spinal tenderness, step-offs or deformities EXTREMITIES: Normal range of motion, no pitting or edema. No clubbing or cyanosis. NEUROLOGICAL: Cranial nerves II through XII grossly intact. Normal speech, normal gait. 5/5 strength, normal movement in all extremities, normal sensation , normal reflexes PSYCH: Normal mood, normal affect. SKIN: Warm, dry, normal turgor, no visible rashes or lesions. Source: Patient Exam Limitations: No limitations - Personal History Current Tetanus Diphtheria and Acellular Pertussis (TDAP): No - Medical/Surgical History Hx Asthma: No Hx Chronic Respiratory Disease: No Hx Diabetes: No Hx Cardiac Disease: Yes Hx Renal Disease: No Hx Cirrhosis: No Hx Alcoholism: No Hx HIV/AIDS: No Hx Splenectomy or Spleen Trauma: No Other PMH: CHF, pulmonary hypertension, chronic hypoxia, POLYCYTHEMIA, diabetes type 2, HTN. heart cath 05/17/17 - Family History Significant Family History: No pertinent family hx - Social History Smoking Status: Never smoked Alcohol Use: None Drug Use: None Constitutional: Initial Vital Signs Temperature (C) 37 C 01/08/18 10:39 Heart Rate 80 01/08/18 10:39 Respiratory Rate 18 01/08/18 10:39 Blood Pressure 148/59 H 01/08/18 10:39 O2 Sat (%) 80 L 01/08/18 10:39 O2 Delivery Mode Nasal Cannula O2 (L/minute) 4 Allergies/Adverse Reactions: No Known Allergies Allergy (Verified 01/08/18 10:38) Home Medications: Medication Instructions Recorded Aspirin EC [Aspirin EC 81 mg (*)] 81 mg PO HS 05/10/17 Cholecalciferol Vit D3 [Vitamin D3 1,000 units PO DAILY 05/10/17 (*)] Nebivolol HCl [Bystolic 5 mg (*)] 5 mg PO DAILY 05/10/17 Propylene Glycol/Peg 400 [SYSTANE 1 drop EACHEYE DAILY PRN 05/17/17 0.3-0.4% EYE DROPS] Herbals/Supplements -Info Only 1 ea PO DAILY 01/08/18 Hydrochlorothiazide [HCTZ (*)] 12.5 mg PO DAILY 01/08/18 metFORMIN HCL [Glucophage 500 mg 500 mg PO BIDMEAL 01/08/18 (*)] Medical Decision Making - Diagnostics EKG Interpretation: An EKG obtained and was read and documented in trace view. Please see trace view for full reading and report. Sinus rhythm, multiple PVCs verses ectopic pacemaker. Similar to previous Imaging Results: Imaging Impressions Chest X-Ray 01/08/18 11:09 Impression: 1. Radiographic evidence of worsening pulmonary edema and alveolar infiltrates bilaterally. 2. Left greater than right pleural effusions, overall decreased in amount compared to May. Imaging: Discussed imaging studies w/ patrol lady Radiologist ED Course/Re-evaluation: The patient's white blood count is significantly elevated although it appears to be baseline. Her EKG is reassuring other than some premature ventricular contractions. The patient's x-rays consistent with pulmonary edema. Her BNP is elevated. Patient's family just told us that she stopped her Lasix 1 week ago to start hydrochlorothiazide. I have paged the hospitalist service for admission. 11:55 a.m. I discussed the case with Amada who will accept for Dr. Mauricio to PCU. Differential Diagnosis: Partial list of the Differential diagnosis considered include but were not limited to; COPD, CHF exacerbation, pneumonia and although unlikely based on the history and physical exam, I also considered acute coronary disease, pneumothorax, PE. Critical Care Time: Critical care time spent by me, Dr. Garcia exclusive with this patient was 45 minutes, exclusive of the PA time exclusive of procedures. The organ system that was at risk was cardiovascular and I gave diagnostics treatment and admission to prevent worsening of the patient's condition - Data Points Laboratory Results: Laboratory Results 01/08/18 11:00 01/08/18 11:00 01/08/18 01/08/18 01/08/18 11:14 11:00 11:00 WBC RBC Hgb Hct MCV MCH MCHC RDW Plt Count MPV Neut % (Auto) Lymph % (Auto) Hart % (Auto) Eos % (Auto) Baso % (Auto) Nucleat RBC Rel Count Absolute Neuts (auto) Absolute Lymphs (auto) Absolute Monos (auto) Absolute Eos (auto) Absolute Basos (auto) Absolute Nucleated RBC Immature Gran % Immature Gran # RBC/WBC/PLT Morphology Toxic Granulation Platelet Estimate Polychromasia Hypochromasia Tear Drop Cells Elliptocytes Smear Review By PT 16.8 SEC H SEC (12.0-15.0) INR 1.34 H (0.83-1.16) APTT 36.3 SEC SEC (23.0-38.0) Sodium 138 mEq/L mEq/L (135-145) Potassium 4.6 mEq/L mEq/L (3.3-5.0) Chloride 102 mEq/L mEq/L (97-110) Carbon Dioxide 24 mEq/l mEq/l (22-31) Anion Gap 12 mEq/L mEq/L (8-16) BUN 17 mg/dL mg/dL (7-23) Creatinine 0.8 mg/dL mg/dL (0.6-1.0) Estimated GFR > 60 Glucose 91 mg/dL mg/dL (70-100) Calcium 8.8 mg/dL mg/dL (8.5-10.4) POC Troponin I 0.02 ng/mL ng/mL (0.00-0.08) NT-Pro-B Natriuret Pep 3200 pg/mL H pg/mL (0-125) 01/08/18 11:00 WBC 25.63 10^3/uL H 10^3/uL (3.80-9.50) RBC 5.82 10^6/uL H 10^6/uL (4.18-5.33) Hgb 10.0 g/dL L g/dL (12.6-16.3) Hct 37.8 % L % (38.0-47.0) MCV 64.9 fL L fL (81.5-99.8) MCH 17.2 pg L pg (27.9-34.1) MCHC 26.5 g/dL L g/dL (32.4-36.7) RDW 20.6 % H % (11.5-15.2) Plt Count 700 10^3/uL H 10^3/uL (150-400) MPV 10.3 fL fL (8.7-11.7) Neut % (Auto) 92.8 % H % (39.3-74.2) Lymph % (Auto) 2.7 % L % (15.0-45.0) Hart % (Auto) 1.5 % L % (4.5-13.0) Eos % (Auto) 1.8 % % (0.6-7.6) Baso % (Auto) 0.4 % % (0.3-1.7) Nucleat RBC Rel Count 0.0 % % (0.0-0.2) Absolute Neuts (auto) 23.78 10^3/uL H 10^3/uL (1.70-6.50) Absolute Lymphs (auto) 0.69 10^3/uL L 10^3/uL (1.00-3.00) Absolute Monos (auto) 0.38 10^3/uL 10^3/uL (0.30-0.80) Absolute Eos (auto) 0.46 10^3/uL H 10^3/uL (0.03-0.40) Absolute Basos (auto) 0.10 10^3/uL 10^3/uL (0.02-0.10) Absolute Nucleated RBC 0.00 10^3/uL 10^3/uL (0-0.01) Immature Gran % 0.8 % % (0.0-1.1) Immature Gran # 0.21 10^3/uL H 10^3/uL (0.00-0.10) RBC/WBC/PLT Morphology TNP Toxic Granulation PRESENT H Platelet Estimate INCREASED H (ADEQ) Polychromasia 1+ H Hypochromasia 1+ H Tear Drop Cells 1+ H Elliptocytes 1+ H Smear Review By Pending PT INR APTT Sodium Potassium Chloride Carbon Dioxide Anion Gap BUN Creatinine Estimated GFR Glucose Calcium POC Troponin I NT-Pro-B Natriuret Pep Medications Given: Discontinued Medications Furosemide (Lasix Injection) 40 mg IVP EDNOW ONE Stop: 01/08/18 11:10 Last Admin: 01/08/18 11:24 Dose: 40 mg Point of Care Test Results: Chemistry 01/08/18 11:14 POC Troponin I 0.02 ng/mL ng/mL (0.00-0.08) Departure - Departure Disposition: [facility] Acute Clinical Impression: CHF (congestive heart failure) Qualifiers: Heart failure type: unspecified Heart failure chronicity: acute on chronic Qualified Code(s): I50.9 - Heart failure, unspecified Condition: Fair
[2018-01-08 11:14] LABS: PLATELET COUNT 700 10^3/uL (150-400)
[2018-01-08 11:20] LABS: INR 1.34 (0.83-1.16); PROTIME(PATIENT) 16.8 SEC (12.0-15.0)
--- NOTE | 2018-01-08 11:30 | CPEKG ---
Test Reason : OPEN Blood Pressure : / mmHG Vent. Rate : 083 BPM Atrial Rate : 039 BPM P-R Int : 183 ms QRS Dur : 090 ms QT Int : 398 ms P-R-T Axes : 030 072 056 degrees QTc Int : 468 ms Sinus rhythm Ventricular bigeminy Anteroseptal infarct, age indeterminate Confirmed by Tremayne Garcia ([id number]) on 01/08/2018 11:29:37 AM Referred By: Confirmed By:Tremayne Garcia
[2018-01-08] MEDS ORDERED: ACETAMINOPHEN 325 MG TAB PO PRN (13:45)
[2018-01-08] MEDS ORDERED: ONDANSETRON 4 MG/2 ML VIAL IVP PRN (13:45)
--- NOTE | 2018-01-08 14:42 | GHP ---
DATE OF ADMISSION: 01/08/2018 CHIEF COMPLAINT: Shortness of breath. HISTORY: The patient is a 67-year-old, Danish-speaking female who complains of worsening shortness of breath and oxygen requirement over the last month. As an outpatient, she has seen her primary car e provider, cardiology, and Pulmonary, and is frustrated regarding her lack of improvement. She was recently changed from Lasix to hydrochlorothiazide, although the reason for this change was the patie nt's request as she was worried she was depleting her electrolytes. Initially, she had a better resp onse to hydrochlorothiazide, but then again, her urine output dropped. She has had increased shortne ss of breath at night, 1 pillow orthopnea with PND, and increased lower extremity edema, although her weight has been stable. She had her oxygen requirement at home has increased. She has only been on home oxygen for 1 month, initially starting at 1 L, and she has had to slowly go up, and she is now requiring 3 L. She had an outpatient CT angiogram of chest was negative for PE. She was recently di agnosed with sleep apnea and started on CPAP, although they are concerned that the CPAP is worsening her oxygen. She has had a new dry cough for the last 2 days. She has polycythemia vera and Dr. Angel arnett is planning a bone marrow biopsy, although she has missed the last few hematology appointments bec ause she has been busy seeing rheologist and respiratory physician. PAST MEDICAL HISTORY: 1. Congestive heart failure, secondary to diastolic dysfunction. 2. Cardiac catheterization May 2017, which was negative for coronary artery disease. Did show some moderate to severe pulmonary hypertension, which is felt to be secondary to her diastolic dysfun ction. 3. Polycythemia vera. JAK2 antibody positive. 4. Hypertension. 5. Diabetes, type 2. 6. Obstructive sleep apnea, on CPAP. 7. Chronic respiratory failure with poor oxygen compliance. PAST SURGICAL HISTORY: Appendectomy, hernia. MEDICATIONS: Please see computer record for full detailed list. ALLERGIES: No known drug allergies. SOCIAL HISTORY: No smoking. No alcohol. She lives alone. REVIEW OF SYSTEMS: Complete review of systems obtained. Review of systems negative regarding consti tutional, HEENT, GI, pulmonary, cardiovascular, , hematology, skin, endocrine, psych, except for po sitives as in HPI. FAMILY HISTORY: Reviewed, noncontributory to presenting complaint. PHYSICAL EXAMINATION: GENERAL: Well-developed, well-nourished female in no acute distress. VITAL S IGNS: Temperature is 36.9, pulse 72, blood pressure 139/62, saturating at 74% on room air, 95% on 4 L. HEENT: Eye: Normal conjunctivae. Pupils react to light. ENT: Normal ears, nose. Hearing int act. Normal teeth. Oropharynx moist. NECK: Trachea midline. No thyromegaly. CHEST: Normal resp iratory effort. LUNGS: Bibasilar rales. No wheeze. CARDIOVASCULAR: Regular rhythm. No murmur. No lower extremity edema. ABDOMEN: Soft, nontender. No hepatosplenomegaly. SKIN: Warm, dry, inta ct. No rash. MUSCULOSKELETAL: No cyanosis or clubbing. Strength 5/5 upper and lower extremities. NEUROLOGIC: Cranial nerves intact. Normal sensation to light touch. PSYCHIATRIC: Alert and orien andrew x3. Normal affect. Normal judgment. Normal memory. LABORATORY/IMAGING: White count 25.63, hematocrit 37.8, platelets 700, MCV 64.9. Sodium 138, potass ium 4.6 chloride 102, bicarb 24, BUN 17, creatinine 0.8, glucose 91. Troponin negative. BNP is 3200 . EKG reviewed. My personal interpretation is normal sinus rhythm with bigeminy. Chest x-ray shows congestive heart failure. ASSESSMENT/PLAN: 1. Acute on chronic diastolic congestive heart failure. She is only 12.5 mg of oral hydrochlorothia zide, which is clearly inadequate. We will put her back on Lasix, give doses IV until she has better volume control. 2. Obstructive sleep apnea. New to CPAP, which should be continued and encouraged. 3. Chronic respiratory failure. According to Dr. Tatum's outpatient note, daytime oxygen was recomm ended, but the patient was hesitant and refusing. CT angiogram of the chest done as an outpatient wa s negative for pulmonary embolism and negative for other findings. We can probably improve her situa tion, but I cannot guarantee we will get her off oxygen completely, even though I know that is her go al. 4. Polycythemia vera, JAK2 antibody positive. She has chronic leukocytosis and chronic thrombocytop enia related to this. Dr. Calabrese would like to do a bone marrow biopsy as an outpatient and potentia lly start Hydrea. I spoke with Dr. Olivia who was on-call for Hematology today and he did not think there is any indication to do the bone marrow biopsy as an inpatient and did not think it was contri buting to her current presentation. CODE STATUS: Full. ADMISSION STATUS: Will admit to observation, reevaluate tomorrow regarding ongoing need for hospital ization. DVT PROPHYLAXIS: She is high risk, will place on subcutaneous Lovenox. /[id number]/MODL
[2018-01-08] MEDS: FUROSEMIDE 40 MG/4 ML VIAL IVP SCH (16:01)
[2018-01-08] MEDS: metFORMIN HCL 500 MG TAB PO SCH (18:20)
[2018-01-08] MEDS: ASPIRIN EC 81 MG TAB PO SCH (22:06)
[2018-01-08] MEDS: NEBIVOLOL HCL 5 MG TAB PO SCH (22:49)
[2018-01-09 04:04] LABS: PLATELET COUNT 656 10^3/uL (150-400)
[2018-01-09] MEDS: metFORMIN HCL 500 MG TAB PO SCH ×2 (08:59→18:29)
[2018-01-09] MEDS: ENOXAPARIN 40 MG/0.4 ML SYR SC SCH (08:59)
[2018-01-09] MEDS: FUROSEMIDE 40 MG/4 ML VIAL IVP SCH ×2 (09:02→15:50)
--- NOTE | 2018-01-09 09:06 | PDMN ---
Medical Necessity Medical necessity: Pt meets IP criteria per & MCG M-190; est los >2 mn for eval/tx of acute on chronic CHF w/worsening dyspnea; requiring further monitoring, IV Lasix & respiratory supportive care; hx chronic respiratory failure w/poor oxygen compliance, polycythemia vera, diabetes, INDIGO on CPAP; per H&P & order 01/09/18
--- NOTE | 2018-01-09 13:45 | HOSPPROG ---
Hospitalist Progress Note Assessment/Plan: * Acute on chronic diastolic CHF -continue IV Lasix -diuretic compliance a problem -blames Lasix for leg cramps even though K 4.5 with cramps last night -consider change PO Demedex or torsemide * Acute vs. chronic respiratory failure -only on home O2 for 1 month - and wants to get off -CTA chest negative for PE -maximize diuresis and re-assess room air * Polycythemia vera -needs outpatient bone marrow bx and consider Hydrea -follow-up Dr. Sanches -continue ASA -no current need for phlebotomy * INDIGO -CPAP * DM II -metformin * Leg cramps -doubt due to electrolytes given cramps last night when K 4.5 -check TSH Subjective: Better SOB. Leg cramps severe last night Objective: Vital Signs Temp Pulse Resp BP Pulse Ox 36.7 C 73 18 117/54 L 90 L 01/09/18 12:37 01/09/18 12:37 01/09/18 12:37 01/09/18 12:37 01/09/18 12:37 PT 16.8 SEC (12.0-15.0) H 01/08/18 11:00 INR 1.34 (0.83-1.16) H 01/08/18 11:00 d/w Karmen BARKER - diuretic and oxygen compliance creates difficult outpatient management tele - NSR Laboratory Tests 01/09/18 01/09/18 03:14 03:14 WBC 22.58 H Hct 37.3 L MCV 65.1 L Plt Count 656 H Creatinine 0.9 - Physical Exam Constitutional: no apparent distress, appears nourished, not in pain Ears, Nose, Mouth, Throat: moist mucous membranes, hearing normal, ears appear normal, no oral mucosal ulcers Cardiovascular: regular rate and rhythym, no murmur, rub, or gallop Respiratory: no respiratory distress, inspiratory crackles, No expiratory wheeze , No rhonchi Gastrointestinal: normoactive bowel sounds, soft, non-tender abdomen, no palpable masses Skin: no rashes or abrasions, no fluctuance, no induration Neurologic: AAOx3, sensation intact bilaterally Psychiatric: interacting appropriately, not anxious, not encephalopathic, thought process linear ICD10 Worksheet Patient Problems: Problems Problem Status Onset CHF (congestive heart failure) Acute Cardiomegaly Acute Chronic Disease Mgmt/Transitional Care Acute Elevated brain natriuretic peptide (BNP) level Acute Hypoxia Acute
--- NOTE | 2018-01-09 14:28 | ASMTCMCOM ---
CM Note CM Note Notes: 01/09/2018 Case Management Note Pt admitted for CHF exacerbation. Met w/pt and daughter Ladonna [phone]. Pt speaks Macedonian as primary language but understands east timorese. Daughter provided information. Pt lives alone in [address]. Daughter or neighbors brings groceries or meals to pt. Pt no longer drives. Pt requires assistance with showers and has low stamina for activities per daughter. At pt request applied for HCBS through [facility]. ULTC 100 completed. Email to [employer] for LTC medicaid application. Pt PCP is Dr. Jo Ann Foster at [facility]. Case Management d/c poc: anticipating independent with follow up as directed. Case Management to follow. Date Signed: 01/09/2018 02:28 PM Electronically Signed By:Ofe Nunez RN
[2018-01-09] MEDS: NEBIVOLOL HCL 5 MG TAB PO SCH (21:20)
[2018-01-09] MEDS: ASPIRIN EC 81 MG TAB PO SCH (21:20)
[2018-01-10 03:41] LABS: PLATELET COUNT 626 10^3/uL (150-400)
[2018-01-10 07:14] VITALS: BP 127/62
[2018-01-10] MEDS: ENOXAPARIN 40 MG/0.4 ML SYR SC SCH (08:50)
[2018-01-10] MEDS: metFORMIN HCL 500 MG TAB PO SCH (08:52)
[2018-01-10] MEDS: FUROSEMIDE 40 MG/4 ML VIAL IVP SCH (08:53)
[2018-01-10] MEDS ORDERED: PNEUMOC 13-VAL CONJ-DIP CRM/PF 0.5 ML SYR IM ONE (11:51)
--- NOTE | 2018-01-10 17:39 | GDS ---
DISCHARGE DIAGNOSES: 1. Acute on chronic diastolic heart failure. 2. Acute on chronic respiratory failure requiring 1-2 L/minute of oxygen at home. 3. Polycythemia vera with JAK2 positive. 4. Obstructive sleep apnea. 5. Diabetes mellitus. CONSULTANTS: None. HISTORY OF DETAILS: Please see history and physical dated January 08, 2018. In brief, Ms. eKnia parks is a 67-year-old female with history of chronic diastolic heart failure, diabetes, hypertension, a nd polycythemia vera, who presented to the emergency department with shortness of breath. She was fo und to have acute heart failure by chest x-ray and elevated BNP and was admitted to the hospital for further management of her hospital course. Patient was admitted to the cardiac telemetry unit. She required 4 L of oxygen on arrival on the day of discharge. She has weaned down to 1 L of oxygen, whi ch is her baseline oxygen requirement. She had previously been taking just oral hydrochlorothiazide, which was clearly inadequate and managing her heart failure. She was transitioned to IV Lasix here, which affected better diuresis. Her discharge weight is 65.5 kilos. She will discharge home on ora l Lasix with close outpatient followup with her primary Seat Cover Maker, Dr. August Jo. Her potassiu m has remained greater than 4 since initiation of IV Lasix therapy, thus she is not discharged on pot assium supplementation, that she should have a repeat basic metabolic panel within a week. Patient's symptoms are significantly improved and she is eager to discharge home. DISPOSITION: Patient is discharged home in stable condition with recommendation to continue oxygen 1 -2 L/minute continuously at home. DISCHARGE MEDICATIONS: Please see Shop[employer] completed outpatient medication list. New medications on discharge include Lasix 40 mg p.o. daily #30 no refills. She will continue all other outpatient med ications as previously prescribed with the exception of hydrochlorothiazide, which is discontinued in favor of Lasix. FOLLOWUP: 1. Dr. August Jo in 1 week to follow up on her heart failure oxygenation and repeat labs. 2. Dr. Renu Calabrese, oncology, for outpatient bone marrow biopsy given her chronic leukocytosis and t hrombocytosis. 3. Dr. Jo Ann Foster, primary care. /[id number]/MODL
== END 2018-01-10 12:29 | disposition home or self-care (01) | DRG 291 ==
LOC: F2W 12:37 → OBSVTOIN 01-09 08:31
PROVIDERS: ADMIT Internal Medicine; ATTEND Internal Medicine
DX: I11.0 Hypertensive heart disease with heart failure (principal); I50.33 Acute on chronic diastolic (congestive) heart failure; J96.21 Acute and chronic respiratory failure with hypoxia; D45 Polycythemia vera; G47.33 Obstructive sleep apnea (adult) (pediatric); E11.9 Type 2 diabetes mellitus without complications; Z23 Encounter for immunization
CPT/HCPCS: 84484-PO; 96374; 97165-GO; 97530-GO; G8987-GO-CI; G8988-GO-CI; G8989-GO-CI; J1650; J1940

== ENCOUNTER → 2018-02-18 | Outpatient (CLI) | payer OTHER, MEDICAID | LOC: BHFA 14:00 | PROVIDERS: ATTEND Internal Medicine Cardiovascular Disease | DX: R00.2 Palpitations (principal); R06.02 Shortness of breath; I50.9 Heart failure, unspecified ==

== ENCOUNTER → 2018-07-05 | Outpatient (CLI) | payer OTHER, MEDICAID | LOC: BHFA 14:00 | PROVIDERS: ATTEND Internal Medicine Cardiovascular Disease | DX: R07.9 Chest pain, unspecified (principal) ==

== ENCOUNTER → 2018-07-09 | Outpatient (CLI) | payer OTHER, MEDICAID | LOC: BHFA 13:30 | PROVIDERS: ATTEND Internal Medicine Cardiovascular Disease | DX: R07.9 Chest pain, unspecified (principal) | CPT/HCPCS: 78452; 93017; A9500; J2785 ==

== ENCOUNTER 2018-07-29 13:51 | Observation (INO) | payer OTHER, MEDICAID ==
--- NOTE | 2018-07-29 14:19 | EDPHY ---
H & P Stated Complaint: Right foot is red, hot and swollen Time Seen by Provider: 07/29/18 14:05 HPI/ROS: CHIEF COMPLAINT: Right foot erythema, increased warmth x5 days HISTORY OF PRESENT ILLNESS: 67-year-old female history of diabetes, Macanese- speaking primarily, in the ER with daughter who serves as freelance interpreter/translator, complaining of progressive erythema to the dorsum of the right foot, initially started in the webspace to the 1st and 2nd toe and has progressed to include her entire foot and ankle. She is able to bear weight albeit with pain. She notes increased warmth and erythema cyst coloration. Denies history of chronic skin infections or cutaneous MRSA. Denies: Fever, chills, nausea, vomiting, flu-like symptoms. PRIMARY CARE PROVIDER: Jo Ann Dooley REVIEW OF SYSTEMS: 10 systems reviewed and negative with the exception of the elements mentioned in the history of present illness PAST MEDICAL & SURGICAL HISTORY: Polycythemia vera. Diabetes. Cardiac catheterization. CHF. Pulmonary hypertension. SOCIAL HISTORY: Nonsmoker. Macanese-speaking primarily. PHYSICAL EXAM (Prior to examination, patient consented to physical exam, hands were washed and my usual and customary physical exam procedures followed) 1) GENERAL: Well-developed, well-nourished, alert and oriented. Appears to be in no acute distress. 2) HEAD: Normocephalic, atraumatic 3) HEENT: Pupils equal, round, reactive to light bilaterally. Sclera anicteric. 4) NECK: Full range of motion, no meningeal signs. 5) LUNGS: Clear auscultation bilaterally, no wheezes, no rhonchi, no retractions. 6) HEART: Regular rate and rhythm, no murmur, no heave, no gallop. 7) ABDOMEN: [No guarding, no rebound, no focal tenderness 8) MUSCULOSKELETAL: Right lower extremity: DP PT pulses present and brisk. There is diffuse erythema and induration to the dorsum of the foot which includes the right ankle. There is no pain with axial loading of the ankle mortise. Increased warmth to said area. Capillary refill less than 2 sec. Negative Homans no palpable cord. There is no crepitus. Otherwise, Moving all extremities, no focal areas of tenderness, no obvious trauma. No peripheral edema or discoloration. 9) BACK: No visual or palpable abnormality. 10) SKIN: No rash, no petechiae. 11) Psychiatric: Patient is oriented X 3, there is no agitation. DIFFERENTIAL DIAGNOSIS: In no particular order including but not limited to osteomyelitis, cellulitis, necrotizing fasciitis - Personal History Current Tetanus/Diphtheria Vaccine: No Current Tetanus Diphtheria and Acellular Pertussis (TDAP): No - Medical/Surgical History Hx Asthma: No Hx Chronic Respiratory Disease: No Hx Diabetes: Yes Hx Cardiac Disease: Yes Hx Renal Disease: No Hx Cirrhosis: No Hx Alcoholism: No Hx HIV/AIDS: No Hx Splenectomy or Spleen Trauma: No Other PMH: CHF, pulmonary hypertension, chronic hypoxia, POLYCYTHEMIA, diabetes type 2, HTN. heart cath 05/17/17 - Social History Smoking Status: Never smoked Constitutional: Initial Vital Signs Temperature (C) 36.8 C 07/29/18 13:56 Heart Rate 75 07/29/18 13:56 Respiratory Rate 18 07/29/18 13:56 Blood Pressure 120/59 L 07/29/18 13:56 O2 Sat (%) 91 L 07/29/18 13:56 O2 Delivery Mode Room Air Allergies/Adverse Reactions: No Known Allergies Allergy (Verified 01/08/18 10:38) Home Medications: Medication Instructions Recorded Aspirin EC [Aspirin EC 81 mg (*)] 81 mg PO HS 05/10/17 Cholecalciferol Vit D3 [Vitamin D3 1,000 units PO DAILY 05/10/17 (*)] Nebivolol HCl [Bystolic 5 mg (*)] 5 mg PO DAILY 05/10/17 Propylene Glycol/Peg 400 [SYSTANE 1 drop EACHEYE DAILY PRN 05/17/17 0.3-0.4% EYE DROPS] Herbals/Supplements -Info Only 1 ea PO DAILY 01/08/18 metFORMIN HCL [Glucophage 500 mg 500 mg PO BIDMEAL 01/08/18 (*)] Furosemide [Lasix 40 MG (*)] 40 mg PO DAILY #30 tab 01/10/18 Medical Decision Making - Diagnostics Imaging Results: Imaging Impressions Foot X-Ray 07/29/18 14:16 Impression: 1. Soft tissue swelling over the metatarsals without underlying osseous abnormality. 2. Mild to moderate bunion distal head of the first metatarsal with mild hallux valgus. ED Course/Re-evaluation: 2:16 p.m.: Patient has evidence of diffuse cellulitis to right foot with history of diabetes. Will plan on laboratory studies, IV antibiotics, admission. Doubt necrotizing fasciitis. 3:00 p.m.: Consultation with hospitalist, admit to Dr Han for cellulitis right foot with history diabetes. Patient also seen and examined by Dr Garcia in ER. - Data Points Laboratory Results: Laboratory Results 07/29/18 14:35 07/29/18 07/29/18 14:35 14:35 WBC 29.32 10^3/uL H 10^3/uL (3.80-9.50) RBC 6.20 10^6/uL H 10^6/uL (4.18-5.33) Hgb 11.7 g/dL L g/dL (12.6-16.3) Hct 42.6 % % (38.0-47.0) MCV 68.7 fL L fL (81.5-99.8) MCH 18.9 pg L pg (27.9-34.1) MCHC 27.5 g/dL L g/dL (32.4-36.7) RDW 21.2 % H % (11.5-15.2) Plt Count 713 10^3/uL H 10^3/uL (150-400) MPV 10.8 fL fL (8.7-11.7) Neut % (Auto) 93.1 % H % (39.3-74.2) Lymph % (Auto) 2.8 % L % (15.0-45.0) Stanly % (Auto) 1.6 % L % (4.5-13.0) Eos % (Auto) 1.5 % % (0.6-7.6) Baso % (Auto) 0.3 % % (0.3-1.7) Nucleat RBC Rel Count 0.0 % % (0.0-0.2) Absolute Neuts (auto) 27.30 10^3/uL H 10^3/uL (1.70-6.50) Absolute Lymphs (auto) 0.82 10^3/uL L 10^3/uL (1.00-3.00) Absolute Monos (auto) 0.47 10^3/uL 10^3/uL (0.30-0.80) Absolute Eos (auto) 0.44 10^3/uL H 10^3/uL (0.03-0.40) Absolute Basos (auto) 0.09 10^3/uL 10^3/uL (0.02-0.10) Absolute Nucleated RBC 0.00 10^3/uL 10^3/uL (0-0.01) Immature Gran % 0.7 % % (0.0-1.1) Immature Gran # 0.21 10^3/uL H 10^3/uL (0.00-0.10) RBC/WBC/PLT Morphology TNP Platelet Estimate INCREASED H (ADEQ) Polychromasia 1+ H Hypochromasia 2+ H Microcytic Cells 3+ H Tear Drop Cells 1+ H Elliptocytes 1+ H Keratocytes 1+ H Smear Review By Pending Sodium Pending Potassium Pending Chloride Pending Carbon Dioxide Pending Anion Gap Pending BUN Pending Creatinine Pending Estimated GFR Pending Glucose Pending Calcium Pending Medications Given: Discontinued Medications Cefazolin Sodium/Dextrose (Ancef 1 Gm (Premix)) 50 mls @ 200 mls/hr IV EDNOW ONE PRN Reason: Protocol Stop: 07/29/18 14:30 Last Admin: 07/29/18 14:52 Dose: 50 mls Departure - Departure Disposition: [facility] Inpatient Acute Clinical Impression: Cellulitis of right foot Condition: Fair
[2018-07-29 14:47] LABS: PLATELET COUNT 713 10^3/uL (150-400)
[2018-07-29] MEDS ORDERED: NS 1,000 ML IV ONE (15:10)
[2018-07-29] MEDS ORDERED: ONDANSETRON DISINTEGRATING 4 MG TAB PO PRN (15:44)
[2018-07-29] MEDS ORDERED: ONDANSETRON 4 MG/2 ML VIAL IVP PRN (15:44)
[2018-07-29] MEDS ORDERED: ACETAMINOPHEN 325 MG TAB PO PRN (15:44)
[2018-07-29] MEDS ORDERED: D50W 25 GM/50 ML SYR IVP PRN (15:48)
--- NOTE | 2018-07-29 16:46 | PDGENHP ---
<Felecia Camacho - Last Filed: 07/29/18 18:28> History and Physical - Chief Complaint Cellulitis - History of Present Illness This is a 67 y/o w/hx of diabetes type 2, diastolic congestive heart failure, pulmonary hypertension, INDIGO, and polycythemia vera presenting to the ED w/ 5 days worth of progressive worsening right foot edema and erythematous. Onset was noted to dorsum of foot and the webspace b/t 1st and 2nd metatarsal and then gradually worsened to her entire foot and ankle. She is still able to ambulate regardless of the pain, denies any sensation loss. Right foot x-ray shows soft tissue swelling over the metatarsals without underlying osseous abnormality as well as mild to moderate bunion distal head of the 1st metatarsal with mild hallux valgus. She denies chest pain, palpitations, shortness of breath, fever, chills, nausea, urinary or bowel issues. She speaks primarily South [place]. She is being admitted for further workup, treatment, and monitoring. History Information - Allergies/Home Medication List Allergies/Adverse Reactions: No Known Allergies Allergy (Verified 01/08/18 10:38) Home Medications: Aspirin EC [Aspirin EC 81 mg (*)] 81 mg PO HS 05/10/17 [Last Taken 07/28/18] metFORMIN HCL [Glucophage 500 mg (*)] 500 mg PO BIDMEAL 01/08/18 [Last Taken ] Nebivolol HCl [Bystolic 5 mg (*)] 5 mg PO HS 07/29/18 [Last Taken 07/28/18] Spironolactone [Spironolactone] 25 mg PO DAILY 07/29/18 [Last Taken 07/29/18] I have personally reviewed and updated: family history, medical history, social history, surgical history Past Medical History: Polycythemia vera, diastolic congestive heart failure, pulmonary hypertension, obstructive sleep apnea (does not tolerate a CPAP machine and does not always wear oxygen throughout the daytime. Wears 2.5 L nasal cannula at nighttime) - Past Medical History diabetes type 2, hypertension Additional medical history: polycythemia with baseline white blood cell count in the 20,000 range - Surgical History Reports: no pertinent surgical hx Additional surgical history: Cardiac catheterization 05/17/2017 with results of moderate to severe pulmonary hypertension mostly driven by diastolic dysfunction and LHF - Family History Additional family history: no family history of venous thromboembolism, no family history of coronary artery disease - Social History Smoking Status: Never smoked Alcohol Use: None Drug Use: None Additional social history: normally independent in her ADLs, lives locally. She moved from [place] 10 years ago she does plan to go back this summer to visit her one daughter that lives there. Her other daughter lives locally. 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 Review of Systems Review of Systems: ROS: 10pt was reviewed & negative except for what was stated in HPI & below Physical Exam Physical Exam: Lab data and imaging were reviewed. White blood cell count: 29.32 Hemoglobin and hematocrit: 11.7 and 42.6 Platelet count: 713 Sodium: 134 Potassium: 5.8 Chloride: 99 Carbon dioxide: 18 BUN/Cr: 50/1.4 CRP: 60.2 ESR: 60 Lactic Acid: 1.0 Procalcitonin: 0.47 Foot x-ray: see HPI Temp Pulse Resp BP Pulse Ox 36.8 C 72 18 121/66 H 92 07/29/18 13:56 07/29/18 16:00 07/29/18 16:00 07/29/18 16:00 07/29/18 16:00 Constitutional: no apparent distress, appears nourished, not in pain Eyes: PERRL, anicteric sclera, EOMI Ears, Nose, Mouth, Throat: moist mucous membranes, hearing normal, ears appear normal, no oral mucosal ulcers Cardiovascular: regular rate and rhythym, no murmur, rub, or gallop, No edema Peripheral Pulses: 2+: dorsalis-pedis (R), dorsalis-pedis (L) Respiratory: no respiratory distress, no rales or rhonchi, clear to auscultation Gastrointestinal: normoactive bowel sounds, soft, non-tender abdomen, no palpable masses Genitourinary: no bladder fullness, no bladder tenderness Skin: erythema, rash (Right foot w/ ill defined borders of erythema and edema, no pitting. Cap refill <2 seconds, sensation intact) Musculoskeletal: full muscle strength, no muscle tenderness, normal joint ROM, no joint effusions Neurologic: AAOx3, sensation intact bilaterally, CN II-XII Intact Psychiatric: interacting appropriately, not anxious, not encephalopathic, thought process linear Lymph, Heme, Immunologic: no cervical LAD, no supraclavicular LAD Lab Data & Imaging Review 07/29/18 14:35 07/29/18 15:42 WBC 29.32 10^3/uL (3.80-9.50) H 07/29/18 14:35 RBC 6.20 10^6/uL (4.18-5.33) H 07/29/18 14:35 Hgb 11.7 g/dL (12.6-16.3) L 07/29/18 14:35 Hct 42.9 % (38.0-47.0) 07/29/18 14:35 MCV 68.7 fL (81.5-99.8) L 07/29/18 14:35 MCH 18.9 pg (27.9-34.1) L 07/29/18 14:35 MCHC 27.5 g/dL (32.4-36.7) L 07/29/18 14:35 RDW 21.2 % (11.5-15.2) H 07/29/18 14:35 Plt Count 713 10^3/uL (150-400) H 07/29/18 14:35 MPV 10.8 fL (8.7-11.7) 07/29/18 14:35 Neut % (Auto) 93.1 % (39.3-74.2) H 07/29/18 14:35 Lymph % (Auto) 2.8 % (15.0-45.0) L 07/29/18 14:35 Stevens % (Auto) 1.6 % (4.5-13.0) L 07/29/18 14:35 Eos % (Auto) 1.5 % (0.6-7.6) 07/29/18 14:35 Baso % (Auto) 0.3 % (0.3-1.7) 07/29/18 14:35 Nucleat RBC Rel Count 0.0 % (0.0-0.2) 07/29/18 14:35 Absolute Neuts (auto) 27.30 10^3/uL (1.70-6.50) H 07/29/18 14:35 Absolute Lymphs (auto) 0.82 10^3/uL (1.00-3.00) L 07/29/18 14:35 Absolute Monos (auto) 0.47 10^3/uL (0.30-0.80) 07/29/18 14:35 Absolute Eos (auto) 0.44 10^3/uL (0.03-0.40) H 07/29/18 14:35 Absolute Basos (auto) 0.09 10^3/uL (0.02-0.10) 07/29/18 14:35 Absolute Nucleated RBC 0.00 10^3/uL (0-0.01) 07/29/18 14:35 Immature Gran % 0.7 % (0.0-1.1) 07/29/18 14:35 Immature Gran # 0.21 10^3/uL (0.00-0.10) H 07/29/18 14:35 RBC/WBC/PLT Morphology TNP 07/29/18 14:35 Platelet Estimate INCREASED (ADEQ) H 07/29/18 14:35 Polychromasia 1+ H 07/29/18 14:35 Hypochromasia 2+ H 07/29/18 14:35 Microcytic Cells 3+ H 07/29/18 14:35 Tear Drop Cells 1+ H 07/29/18 14:35 Elliptocytes 1+ H 07/29/18 14:35 Keratocytes 1+ H 07/29/18 14:35 ESR 60 MM/HR (0-30) H 07/29/18 14:35 VBG Lactic Acid 1.0 mmol/L (0.7-2.1) 07/29/18 15:24 Sodium 133 mEq/L (135-145) L 07/29/18 15:42 Potassium 5.2 mEq/L (3.5-5.2) 07/29/18 15:42 Chloride 94 mEq/L (97-110) L 07/29/18 15:42 Carbon Dioxide 21 mEq/l (22-31) L 07/29/18 15:42 Anion Gap 18 mEq/L (6-14) H 07/29/18 15:42 BUN 50 mg/dL (7-23) H 07/29/18 15:42 Creatinine 1.4 mg/dL (0.6-1.0) H 07/29/18 15:42 Estimated GFR 37 07/29/18 15:42 Glucose 84 mg/dL (70-100) 07/29/18 15:42 Calcium 9.2 mg/dL (8.5-10.4) 07/29/18 15:42 C-Reactive Protein 60.2 mg/L (<10.0) H 07/29/18 15:42 Assessment & Plan Plan: This is a 67 y/o female w/hx of diabetes type II on Metformin, polycythemia vera , diastolic congestive heart failure and INDIGO presenting w/ 5 days worth of right sided foot edema and erythema. Her vitals are: BP 120/59, HR 75, Resp 18 , Temp 36.8c, 91% RA. She was advised by LUCERO Parkinson [facility] Karmen Read to wear her oxygen all the time however the pt is not compliant w/this and only wears it at nighttime at 2.5L NC. #Suspected right foot cellulitis -She denies chronic skin infection or hx of MRSA -Received Ancef in ED; will switch to Unasyn for now d/t her co-morbidity of diabetes -Blood cultures pending -LRINEC score is 3 points indicating she is at low risk for necrotizing skin infection however still at risk therefore I have contacted infectious disease to consult; I messaged Dr. Tank Naranjo to consult. Her baseline white cell count is usually 20,000 and today she presents at 29,320 as well as CRP/ESR 60.2 /60 which is concerning. Foot x-ray indicates soft tissue swelling over the metatarsal without underlying osseous abnormality, mild to moderate bunion distal head of the 1st metatarsal with mild hallux valgus -Her skin rash borders have been marked to evaluate progress of her erythematous rash #Acute kidney injury -BUN/Cr: 50/1.4 w/ CrCl 38 ml/min. Baseline is 18/0.9 -She received 1 L normal saline in the emergency room; she will be gently hydrated with IV fluids x 2 bags -Avoid nephrotoxic agents #Diastolic congestive heart failure -Continuing Bystolic however holding diuretics due to acute kidney injury as noted above -She appears to be euvolemic -Recent cardiac testing in June 2018, including echo and a Lexiscan, reveal a left ventricular ejection fraction approximately 68-72% and no regional wall abnormalities. #Pulmonary hypertension -Continue Bystolic -As noted above with diastolic congestive heart failure, recent cardiac testing were performed including an echo and a Lexiscan RSVF is normal. Mildly dilated right ventricle, right atrium is mildly dilated #Diabetes -Holding home metformin -Checking A1c -Initiated insulin sliding scale while in house, glucose checks 3 times a day before meals #Polycythemia vera -Platelet count 713, baseline white blood cell count is typically 20,000 #INDIGO w/o CPAP machine -Utilize oxygen as needed, place 2.5l NC @ HS DIET: Carb-controlled VTE ppx: Heparin subq Code: Full Dispo:Admit to obs <TeshanicAstonmonicalucio - Last Filed: 07/29/18 21:54> History and Physical - History of Present Illness Review of Systems Review of Systems: Physical Exam Physical Exam: Temp Pulse Resp BP Pulse Ox 37.4 C 85 16 114/56 L 94 07/29/18 19:18 07/29/18 20:48 07/29/18 19:18 07/29/18 20:48 07/29/18 19:18 Lab Data & Imaging Review 07/29/18 14:35 07/29/18 15:42 WBC 29.32 10^3/uL (3.80-9.50) H 07/29/18 14:35 RBC 6.20 10^6/uL (4.18-5.33) H 07/29/18 14:35 Hgb 11.7 g/dL (12.6-16.3) L 07/29/18 14:35 Hct 42.9 % (38.0-47.0) 07/29/18 14:35 MCV 68.7 fL (81.5-99.8) L 07/29/18 14:35 MCH 18.9 pg (27.9-34.1) L 07/29/18 14:35 MCHC 27.5 g/dL (32.4-36.7) L 07/29/18 14:35 RDW 21.2 % (11.5-15.2) H 07/29/18 14:35 Plt Count 713 10^3/uL (150-400) H 07/29/18 14:35 MPV 10.8 fL (8.7-11.7) 07/29/18 14:35 Neut % (Auto) 93.1 % (39.3-74.2) H 07/29/18 14:35 Lymph % (Auto) 2.8 % (15.0-45.0) L 07/29/18 14:35 Stevens % (Auto) 1.6 % (4.5-13.0) L 07/29/18 14:35 Eos % (Auto) 1.5 % (0.6-7.6) 07/29/18 14:35 Baso % (Auto) 0.3 % (0.3-1.7) 07/29/18 14:35 Nucleat RBC Rel Count 0.0 % (0.0-0.2) 07/29/18 14:35 Absolute Neuts (auto) 27.30 10^3/uL (1.70-6.50) H 07/29/18 14:35 Absolute Lymphs (auto) 0.82 10^3/uL (1.00-3.00) L 07/29/18 14:35 Absolute Monos (auto) 0.47 10^3/uL (0.30-0.80) 07/29/18 14:35 Absolute Eos (auto) 0.44 10^3/uL (0.03-0.40) H 07/29/18 14:35 Absolute Basos (auto) 0.09 10^3/uL (0.02-0.10) 07/29/18 14:35 Absolute Nucleated RBC 0.00 10^3/uL (0-0.01) 07/29/18 14:35 Immature Gran % 0.7 % (0.0-1.1) 07/29/18 14:35 Immature Gran # 0.21 10^3/uL (0.00-0.10) H 07/29/18 14:35 RBC/WBC/PLT Morphology TNP 07/29/18 14:35 Platelet Estimate INCREASED (ADEQ) H 07/29/18 14:35 Polychromasia 1+ H 07/29/18 14:35 Hypochromasia 2+ H 07/29/18 14:35 Microcytic Cells 3+ H 07/29/18 14:35 Tear Drop Cells 1+ H 07/29/18 14:35 Elliptocytes 1+ H 07/29/18 14:35 Keratocytes 1+ H 07/29/18 14:35 Smear Review By Maykel BARLOW MD 07/29/18 14:35 ESR 60 MM/HR (0-30) H 07/29/18 14:35 VBG Lactic Acid 1.0 mmol/L (0.7-2.1) 07/29/18 15:24 Sodium 133 mEq/L (135-145) L 07/29/18 15:42 Potassium 5.2 mEq/L (3.5-5.2) 07/29/18 15:42 Chloride 94 mEq/L (97-110) L 07/29/18 15:42 Carbon Dioxide 21 mEq/l (22-31) L 07/29/18 15:42 Anion Gap 18 mEq/L (6-14) H 07/29/18 15:42 BUN 50 mg/dL (7-23) H 07/29/18 15:42 Creatinine 1.4 mg/dL (0.6-1.0) H 07/29/18 15:42 Estimated GFR 37 07/29/18 15:42 Glucose 84 mg/dL (70-100) 07/29/18 15:42 POC Glucose 91 mg/dL (70-100) 07/29/18 20:45 Hemoglobin A1c 5.6 % (4.0-6.0) 07/29/18 14:35 Estim Average Glucose 114 mg/dL (68-126) 07/29/18 14:35 Calcium 9.2 mg/dL (8.5-10.4) 07/29/18 15:42 C-Reactive Protein 60.2 mg/L (<10.0) H 07/29/18 15:42 Procalcitonin 0.47 ng/mL (0.02-0.10) H 07/29/18 15:42 Assessment & Plan Assessment: Cellulitis of right foot (Acute) Plan: Patient seen and evaluated independently and care plan reviewed with ARNIE Camacho, agree with her assessment and plan as outlined above. Please see separate documentation for further details.
[2018-07-29] MEDS: NS 1,000 ML IV SCH (17:13)
[2018-07-29] MEDS: INSULIN LISPRO 100 UNIT/ML SC SCH (17:24)
[2018-07-29] MEDS: AMPICILLIN/SULBACTAM 3 GM in NS 100 ML IV SCH ×2 (17:42→23:38)
[2018-07-29] MEDS: HEPARIN 5,000 UNIT/0.5 ML INJ SC SCH (20:48)
[2018-07-29] MEDS ORDERED: NEBIVOLOL HCL 5 MG TAB PO SCH (21:00)
[2018-07-29] MEDS ORDERED: ASPIRIN EC 81 MG TAB PO SCH (21:00)
--- NOTE | 2018-07-29 21:58 | HOSPPROG ---
Hospitalist Progress Note Assessment/Plan: 67 yo F with PMH that includes chronic diastolic heart failure, CHF, polycythemia vera presenting with cellulitis # left foot cellulitis: no clear port of entry but does have e/o onychomycosis possibly contributing, no systemic sxs and not meeting SIRS criteria (WBC chronically elevated due to PV) however does have significantly elevated CRP. Given one dose of ancef and transitioned to unasyn given hx of DM. Will monitor overnight. # Dm2: well controlled with A1c of 5.9, on metformin at home but holding given JEREMIAS # JEREMIAS: with baseline creatinine of 0.9, currently 1.4. Patient does not report poor po intake but appears somewhat dry on exam. Will give IVF overnight (hx of CHF, so with caution) and repeat in am. Monitoring urine output. # chronic diastolic heart failure: currently does not appear volume overloaded, on lasix and spirinolacatone chronically which will be held for now given jeremias # jay: on cpap # CAD: without c/o chest pain, continue op meds # HTN: currently on the low end, on nebivolol, lasix, aldactone--holding diuretics, was continued on nebivolol but will monitor BP closely and hold if any lower # observation status Patient new to my care. Old records reviewed and summarized as above, further hx obtained from patients daughter present at bedside, care plan reviewed with ER doctor and ARNIE Camacho as above. Objective: Vital Signs Temp Pulse Resp BP Pulse Ox 37.4 C 85 16 114/56 L 94 07/29/18 19:18 07/29/18 20:48 07/29/18 19:18 07/29/18 20:48 07/29/18 19:18 Laboratory Results 07/29/18 15:42 ICD10 Worksheet Patient Problems: Problems Problem Status Onset Hypoxia Acute Cellulitis of right foot Acute Chronic Disease Mgmt/Transitional Care Acute CHF (congestive heart failure) Acute Cardiomegaly Acute Elevated brain natriuretic peptide (BNP) level Acute
[2018-07-30] MEDS: AMPICILLIN/SULBACTAM 3 GM in NS 100 ML IV SCH ×2 (06:21→11:16)
[2018-07-30] MEDS: HEPARIN 5,000 UNIT/0.5 ML INJ SC SCH ×2 (06:26→14:41)
[2018-07-30] MEDS: NS 1,000 ML IV SCH (07:57)
[2018-07-30] MEDS: INSULIN LISPRO 100 UNIT/ML SC SCH ×2 (08:03→12:17)
--- NOTE | 2018-07-30 10:09 | ASMTLACE ---
LACE Length of stay for Answers: Less than 1 day current admission Acuity / Level of Answers: Yes Care: Did the patient have an inpatient admission? Comorbidities - select Answers: Congestive heart failure all that apply Diabetes (uncontrolled or controlled) Mild liver or renal disease Other Notes: hypertension, # of Emergency department Answers: 1-2 visits in the last 6 months Score: 10 Date Signed: 07/30/2018 10:07 AM Electronically Signed By:Enma Hua
--- NOTE | 2018-07-30 10:40 | ASMTCMCOM ---
CM Note CM Note Notes: CM met with patient. Patient is a 67-year old female. She came in the ED with 5 days progressive worsening right foot edema and erythema. RN reports that patient continues to be on IV antibiotics. OT pending. Patient reports that she lives alone. CM to follow. Plan: TBD Date Signed: 07/30/2018 10:39 AM Electronically Signed By:Enma Hua
--- NOTE | 2018-07-30 11:07 | HOSPPROG ---
Hospitalist Progress Note Assessment/Plan: 67 yo F w cellulitis home today on bactrim keflex see dc summary Subjective: foot improved. feels well. ready for dc. film neg for osteo/fb interp by me Objective: Vital Signs Temp Pulse Resp BP Pulse Ox 36.6 C 60 16 103/50 L 95 07/30/18 07:31 07/30/18 07:31 07/30/18 07:31 07/30/18 07:31 07/30/18 07:31 Laboratory Results 07/30/18 04:44 07/30/18 04:44 07/29/18 07/30/18 07/31/18 05:59 05:59 05:59 Intake Total 1110 Balance 1110 - Physical Exam Constitutional: no apparent distress, appears nourished Eyes: PERRL, anicteric sclera Ears, Nose, Mouth, Throat: moist mucous membranes, hearing normal Cardiovascular: regular rate and rhythym, no murmur, rub, or gallop Respiratory: no respiratory distress, no rales or rhonchi Gastrointestinal: normoactive bowel sounds, soft, non-tender abdomen Genitourinary: no bladder fullness, No dukes in urethra Skin: warm, normal color Musculoskeletal: full muscle strength, no muscle tenderness, other (erythema has retreated from lines drawn last night. less red, not hot, non fluctuant) Neurologic: AAOx3 Psychiatric: interacting appropriately ICD10 Worksheet Patient Problems: Problems Problem Status Onset Cellulitis of right foot Acute CHF (congestive heart failure) Acute Cardiomegaly Acute Chronic Disease Mgmt/Transitional Care Acute Elevated brain natriuretic peptide (BNP) level Acute Hypoxia Acute
[2018-07-30 11:29] VITALS: BP 103/72
--- NOTE | 2018-07-30 11:47 | GDS ---
[f rep st] DISCHARGE SUMMARY DISCHARGE DIAGNOSES: 1. Right lower extremity cellulitis. 2. Probable polycythemia vera. 3. Chronic hypoxemic respiratory failure. 4. Pulmonary hypertension. 5. Diabetes. 6. Elevated inflammatory markers. 7. Acute injury kidney injury. HOSPITAL COURSE: Please see admission history and physical by Dr. Roger Han. The patient pres ented with right lower extremity cellulitis. She had a foot film, which was negative for foreign bod y or osteomyelitis. She had elevated inflammatory markers and elevated white count of 29,000. Notab ly, she has chronic white leukocytosis of about 20,000, that has been attributed to her polycythemia vera. Given her elevated inflammatory markers, there was some concern that the patient could in fact have necrotizing fasciitis. Malgorzata lytics score was low. Additionally, she had marked improvement on antibiotics effectively ruling out this illness. She has done so well in fact, she is eligible for discharge today. I will give her 7 days of Bactrim and Keflex. Regarding her acute kidney injury, her creatinine is 1.4, new baseline is lower than that. I told h er to hold her diuretics for a number of days. /[id number]/MODL
--- NOTE | 2018-07-30 12:03 | ASMTDCNOTE ---
Case Management Discharge Discharge Order Complete? Answers: Yes Patient to Obtain Answers: Independently Medications Transportation Arranged Answers: Family/Friends Family Notified Answers: Yes Notes: CM met with daughter Discharge Comments Notes: CM met with patient and her daughter. RN reports that she is steady on her feet. RN feels patient is safe to discharge independently. mountain services manager comes to patients house twice a week. Patient has an oxygen machine and monitor at home. Daughter will be picking patient up after work. Date Signed: 07/30/2018 12:02 PM Electronically Signed By:Enma Hua
--- NOTE | 2018-07-30 12:06 | ASDISCHSUM ---
Discharge Information Plan Status:Home with No Needs Medically Cleared to Leave: Discharge Date: CM D/C Disposition:Home, Routine, Self-Care ADT D/C Disposition: Projected Discharge Date: Transportation at D/C: Discharge Delay Reason: Follow-Up Date: Discharge Slot: Final Diagnosis:cellulitis right food Placement Information Patient Contact Information Contact Name:KEREN Relationship:Daughter Address: Work Phone: City:[place] Alternate Phone: [facility] Code:[place] Email: Financial Information Financial Class:Medicare Primary Plan Desc:MEDICARE IP PART B ONLY Primary Plan Number:[id number] Secondary Plan Desc:MEDICAID HEALTH FIRST [place] SQL SERVER 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 Comorbidities - select Answers: Congestive heart failure all that apply Diabetes (uncontrolled or controlled) Mild liver or renal disease Other Notes: hypertension, # of Emergency department Answers: 1-2 visits in the last 6 months Score: 10 Date Signed: 07/30/2018 10:07 AM Electronically Signed By:Enma Hua LACE LACE Length of stay for Answers: 1 day current admission Comorbidities - select Answers: Congestive heart failure all that apply Diabetes (uncontrolled or controlled) Other Notes: hypertension, pulmonary hypertension # of Emergency department Answers: 1-2 visits in the last 6 months Score: 6 Date Signed: 07/30/2018 12:05 PM Electronically Signed By:Enma Hua [facility] Progress Note CM Note CM Note Notes: CM met with patient. Patient is a 67-year old female. She came in the ED with 5 days progressive worsening right foot edema and erythema. RN reports that patient continues to be on IV antibiotics. OT pending. Patient reports that she lives alone. CM to follow. Plan: TBD Date Signed: 07/30/2018 10:39 AM Electronically Signed By:Enma Hua Case Management Discharge Plan Note Case Management Discharge Discharge Order Complete? Answers: Yes Patient to Obtain Answers: Independently Medications Transportation Arranged Answers: Family/Friends Family Notified Answers: Yes Notes: CM met with daughter Discharge Comments Notes: CM met with patient and her daughter. RN reports that she is steady on her feet. RN feels patient is safe to discharge independently. child protective services specialist comes to patients house twice a week. Patient has an oxygen machine and monitor at home. Daughter will be picking patient up after work. Date Signed: 07/30/2018 12:02 PM Electronically Signed By:Enma Hua Intervention Information
== END 2018-07-30 15:49 | disposition home or self-care (01) ==
LOC: F3E 16:35
PROVIDERS: ADMIT Internal Medicine; ATTEND Internal Medicine
DX: L03.115 Cellulitis of right lower limb (principal); N17.9 Acute kidney failure, unspecified; E86.9 Volume depletion, unspecified; D45 Polycythemia vera; J96.11 Chronic respiratory failure with hypoxia; I27.22 Pulmonary hypertension due to left heart disease; I11.0 Hypertensive heart disease with heart failure; I50.32 Chronic diastolic (congestive) heart failure; Z99.81 Dependence on supplemental oxygen; E11.9 Type 2 diabetes mellitus without complications; Z79.84 Long term (current) use of oral hypoglycemic drugs; B35.1 Tinea unguium
CPT/HCPCS: 73630; 96361; 96372; 96374; 96375; 96376; 97165; 99285; G0378; J0295; J0690; J1644

== ENCOUNTER 2018-08-03 16:46 | Emergency (ER) | payer OTHER, MEDICAID ==
--- NOTE | 2018-08-03 17:18 | EDPHY ---
General - History Smoking Status: Never smoked Time Seen by Provider: 08/03/18 17:01 Narrative: CLINICAL IMPRESSION: Persistent right foot cellulitis ASSESSMENT/PLAN: 67-year-old female with past medical history of diabetes, polycythemia vera, CHF , pulmonary hypertension and chronic hypoxia presents to the emergency department for the 2nd time in 5 days with right foot cellulitis. Patient was admitted to this hospital 5 days ago overnight for IV antibiotics. She had an acute on chronically elevated leukocytosis with elevated inflammatory markers but low LRINEC score with little clinical concern for necrotizing fasciitis. She had x-rays that did not suggest osteomyelitis. She reports no significant change in the swelling or coloration of her foot since discharge, has been compliant with Bactrim and Keflex, but reports pain with ambulation. Repeat labs tonight shown improving leukocytosis of 22, platelet count 0 613, sed rate of 45, CRP of 50, creatinine return to baseline at 1. She did have mild hyperkalemia at 5.3 but EKG was unchanged from December 2014 and was reviewed with Dr. Garcia. She has no chest pain or shortness of breath. She has been off her Lasix since discharge per hospitalist request and restarted just today. She is chronically noncompliant with O2 therapy, arrives hypoxic, but maintain saturation at 93% on 2 L. she was seen and examined by Dr. Garcia as well. I did discuss an offer MRI to definitively rule out osteomyelitis as well as readmission. Patient has declined. She would prefer to go home, continue the last 3 days of her outpatient antibiotics and follow-up with primary care. She and her daughter are comfortable with this plan. Low threshold for return to ED sooner as outlined in person and discharge papers. DIFFERENTIAL DX: Differential diagnosis includes but not limited to persistent right foot cellulitis, CHF exacerbation, gouty arthritis, necrotizing fasciitis, osteomyelitis, septic joint, hypoxemia secondary to CHF. ED PROCEDURES: See lab and/or imaging results below ED COURSE: 5:10 p.m.: Patient seen and assessed by myself. On arrival, O2 sat was 88%, reportedly 77% at home, currently on 2 L. Otherwise appears comfortable, lying on the bed, no acute distress. Plan for repeat labs, review of discharge summary, chest x-ray 5:20 p.m.. Patient seen assessed by Dr. Garcia as well. Blood cultures not ordered at this time. Will see labs 1st. 6:30 p.m., labs reviewed. Leukocytosis today of 22, platelet count 0 613, sed rate 45, CRP 50.6, K of 5.3, creatinine 1.0. LRENIC score 7. EKG ordered. Aside from hyperkalemia, labs are improved from admission. Discussed with Dr. Garcia. Discussed with the patient. I did discuss an offer an MRI scan to officially rule out osteomyelitis. Patient and her daughter have declined at this time. They would prefer to go home and continue taking 3 additional days of the prescribed outpatient antibiotics. They know to follow up if symptoms get worse. EKG read by DR. Garcia, no acute ST/T wave changes, unchanged from . Will d/c CHIEF COMPLAINT: Persistent right foot cellulitis. HPI: 67-year-old [place] female with past medical history of diabetes, polycythemia vera, CHF, pulmonary hypertension, chronic hypoxia, presents to the emergency department with complaints of persistent right foot cellulitis. Patient was seen in this emergency department on the 15 of this month, admitted overnight for observation secondary to severe right foot cellulitis, received IV antibiotics. Initially there was some concern for necrotizing fasciitis however this was apparently ruled out with a non suggestive LRINEC score. She has a persistent leukocytosis likely secondary to polycythemia vera. She was improved and discharged on Bactrim and Keflex. She is accompanied by her daughter today who reports the foot essentially looks the same as it did at discharge. It does not look as bad as when she originally came to the emergency department. The patient is complaining of some increased pain and now unable to walk on the foot. She was also told at discharge to stop her Lasix although it is unclear why. She did restart this today. She noted today that her oxygen saturation at home was 77% and she began wearing oxygen. Her daughter reports she only wears oxygen "as needed". On arrival she was 88% on room air. She reports no chest pain, shortness of breath, cough, abdominal distension, or orthopnea. She reports having a plain x-ray but no MRI during admission. Patient's daughter reports she does not have chronic peripheral neuropathy and does have sensation to her feet. Patient believes that she had both cellulitis and gout and that cellulitis was treated but gout was not however she reports she normally does not take anything if she gets a gout infection because it "has never been formally diagnosed". PAST MEDICAL HISTORY: Type 2 diabetes, polycythemia vera, CHF, pulmonary hypertension, chronic hypoxia See nurse/triage notes for additional history if applicable Pertinent Past Surgical History: Cardiac catheterization Family History: Noncontributory Social History: Intermittently oxygen dependent, nonsmoker REVIEW OF SYSTEMS: All other systems negative Constitutional: No fever, no chills, appetite change. Cardiovascular: No chest pain, no palpitations. Respiratory: No cough, no shortness of breath. Gastrointestinal: No abdominal pain, no vomiting, diarrhea. Musculoskeletal: No back pain, positive for joint swelling, positive for joint pain, states she is unable to walk due to pain myalgias. Skin: [No rashes, positive for color change Neurological: No headache, dizziness, weakness. PHYSICAL EXAM: General Appearance: Alert, oriented, appropriate, cooperative, laying comfortably in the bed, NAD, well hydrated, non-toxic appearing, VSS, hypoxic at 88% on room air on arrival, currently on 2 L saturating 93% Respiratory: There are no retractions, lungs are clear to auscultation. Cardiac: Regular rate and rhythm, no murmurs or gallops. Gastrointestinal: Abdomen is soft, nontender, bowel sounds normal, no masses/ hernia, no rigidity, guarding or focal peritoneal findings. Neurological: [ Alert and oriented x 3, Skin: [Dorsum of right foot ankle and distal tib-fib are mildly erythematous compared to left leg and warm to the touch. I do not appreciate any pitting edema. No crepitus or significant pain to palpation. Neurovascular exam is intact. No identified open wounds. No calf pain or swelling. Musculoskeletal: Full range of motion of bilateral ankle and feet. See skin findings above. Psychiatric: Patient is oriented X 3, there is no agitation. MEDICAL DECISION MAKING: Secondary supervising physician at time of evaluation was Dr Garcia who also saw and examined the patient. Diagnosis: Right foot cellulitis. New, requires workup Summary: See Assessment and Plan for summary of ED visit Clinical lab tests: ordered / reviewed. Decision to obtain medical records or history from someone other than the patient: Patient's daughter Review / Summarize previous medical records: Reviewed recent admission notes Discussed patient with another provider: Dr. Garcia Patient Progress: Stable for discharge. (August Gómez) Medical Decision Making: PHYSICIAN DOCUMENTATION: The patient was evaluated and managed by the Physician Returning Officer and myself. I have reviewed the chart and agree with the findings and plan of care as documented except that I do not appreciate a temperature difference in palpation of the foot, and the only redness on the skin of the right foot is noted below. In addition, I examined the patient myself at 1725. History confirmed as foot clinically as far as appearance and symptoms is pretty stable since her discharge. Physical findings as follows: A little bit of swelling near the base of the right great toe with a less than 1 cm area of erythema at the base of the 2nd toe. Nontender to palpation, no crepitus, no eschar or blister, no lymphangitis. I can move the toes without causing pain. No open wounds on the skin. Of note she has chronic leukocytosis, her CRP and sedimentation rate today are elevated but slightly lower than previous. Potassium noted at 5.3, I do not think specific therapy indicated with normal renal function. 12-lead EKG interpreted by me; official reading is in computer system. My interpretation is sinus rhythm left atrial enlargement possible old anterior SD no change in morphology since previous dated December 2017. Further testing and evaluation recommended in hospital; patient and family declined. I am the secondary supervising physician. (Steve Garcia) - Objective Vital Signs: Initial Vital Signs Temperature (C) 36.8 C 08/03/18 16:49 Heart Rate 93 08/03/18 16:49 Respiratory Rate 16 08/03/18 16:49 Blood Pressure 146/62 H 08/03/18 16:49 O2 Sat (%) 88 L 08/03/18 16:49 O2 Delivery Mode Room Air O2 (L/minute) 3 Allergies/Adverse Reactions: No Known Allergies Allergy (Verified 01/08/18 10:38) Home Medications: Medication Instructions Recorded Aspirin EC [Aspirin EC 81 mg (*)] 81 mg PO HS 05/10/17 metFORMIN HCL [Glucophage 500 mg 500 mg PO BIDMEAL 01/08/18 (*)] Nebivolol HCl [Bystolic 5 mg (*)] 5 mg PO HS 07/29/18 Cephalexin [Keflex (*)] 500 mg PO TID #21 cap 07/30/18 Furosemide [Lasix 40 MG (*)] 40 mg PO DAILY #30 tab 07/30/18 Spironolactone 25 mg PO DAILY #1 tablet 07/30/18 Sulfamethox/Tmp 800/160 mg 1 tab PO BID #14 tab 07/30/18 [Bactrim Ds] Laboratory Results: Laboratory Results 08/03/18 17:20 08/03/18 17:20 Medications Given: Discontinued Medications Acetaminophen (Tylenol) 500 mg PO EDNOW ONE Stop: 08/03/18 18:56 Last Admin: 08/03/18 18:58 Dose: 500 mg Departure - Departure Disposition: Home, Routine, Self-Care Clinical Impression: Cellulitis of foot Condition: Fair Instructions: Cellulitis (ED) Additional Instructions: DISCHARGE INSTRUCTIONS FROM YOUR DOCTOR Thank you for visiting our emergency department today. You were treated by a physician assistant health educator today and your case was reviewed with our ED Attending physician. Please keep in mind that discharge from the emergency department does not mean that there is nothing wrong - it simply means that we have not identified an emergency condition that requires further evaluation or treatment in the hospital. You should always plan to follow up with primary care for re- evaluation of your condition in the next 2-3 days. If you have been referred to a specialist, please call as soon as possible (today or tomorrow) to schedule your follow up appointment at the appropriate time. DIAGNOSTIC EVALUATION IN THE EMERGENCY DEPARTMENT TONIGHT INCLUDED REPEAT LAB WORK. YOUR LABORATORY NUMBERS ARE IMPROVING COMPARED TO THOSE WHEN HE ORIGINALLY CAME TO THE EMERGENCY DEPARTMENT. A COPY OF HER LABS WAS PROVIDED TODAY BY REQUEST PLEASE CONTINUE TAKING THE ANTIBIOTICS YOU WERE PRESCRIBED AT DISCHARGE. AN MRI SCAN WAS DISCUSSED AND OFFERED WHICH YOU HAVE DECLINED. PLEASE MONITOR SYMPTOMS CLOSELY AT HOME. PLEASE RETURN TO THE EMERGENCY DEPARTMENT IMMEDIATELY FOR INCREASED PAIN, SWELLING, FEVERS GREATER THAN 100.4, RACING HEART, CHEST PAIN OR SHORTNESS OF BREATH, INABILITY TO WALK, OR ANY OTHER CONCERNS. PLEASE SEE A LOCAL PRIMARY CARE DOCTOR ON SUNDAY. REFERRAL WAS GIVEN. People present with illnesses and injuries in different ways, and it is always possible that we have missed something. You may always return for re-evaluation if symptoms worsen or if they are not improving or if you develop new/different symptoms. Again, thank you for choosing our emergency department. We hope that you feel better. Referrals: Jo Ann Foster MD [Primary Care Provider] - 1-2 days without fail
[2018-08-03 17:35] LABS: PLATELET COUNT 613 10^3/uL (150-400)
[2018-08-03 18:52] VITALS: BP 141/62
[2018-08-03] MEDS ORDERED: ACETAMINOPHEN 500 MG TAB PO ONE (18:55)
[2018-08-03] MEDS ORDERED: ACETAMINOPHEN 500 MG TAB ONE (18:57)
--- NOTE | 2018-08-03 19:10 | CPEKG ---
Test Reason : OPEN Blood Pressure : / mmHG Vent. Rate : 083 BPM Atrial Rate : 082 BPM P-R Int : 184 ms QRS Dur : 096 ms QT Int : 381 ms P-R-T Axes : 033 051 031 degrees QTc Int : 448 ms Sinus rhythm Probable left atrial enlargement Probable anterior infarct, old Confirmed by Steve Garcia ([id number]) on 08/03/2018 7:09:42 PM Referred By: Steve Garcia Confirmed By:Steve Garcia
== END 2018-08-03 19:23 | disposition home or self-care (01) ==
DX: L03.115 Cellulitis of right lower limb (principal); E11.9 Type 2 diabetes mellitus without complications

== ENCOUNTER 2018-09-08 12:47 | Inpatient (IN) | payer OTHER, MEDICAID ==
--- NOTE | 2018-09-08 13:57 | EDPHY ---
General - History Smoking Status: Never smoked Time Seen by Provider: 09/08/18 13:20 Narrative: CLINICAL IMPRESSION: Left lower extremity cellulitis ASSESSMENT/PLAN: Patient is a 67-year-old female with a history of type 2 diabetes, diastolic CHF , pulmonary hypertension, INDIGO and polycythemia vera who presents to the emergency department with left foot pain, swelling and redness. Patient is afebrile, she is not toxic appearing and in no acute distress. Physical examination reveals generalized erythema and tenderness to the left foot tracking up her left lower leg. X-ray with no findings to suggest osteomyelitis , ultrasound with no findings to suggest blood clot. CBC did reveal a leukocytosis of 28,000, very similar to her previous white blood cell counts and consistent with her polycythemia vera. ESR elevated at 39, CRP elevated at 60. Blood cultures were obtained, the patient was started on Unasyn. Uric acid was elevated at 11.1. Her LRINEC today is 3 however however difficult to distinguish secondary to underlying chronic elevated white blood cell count. History of physical examination is consistent with left lower extremity cellulitis, query underlying gout with elevated uric acid and history of multiple joints involved. There were no findings to suggest sepsis, abscess, DVT, septic joint or necrotizing skin infection. The patient will be admitted to the hospital for further observation and management, I spoke directly with Dr. Guy who will be admitting her. DIFFERENTIAL DX: Differential diagnosis including but not limited to and in no particular order cellulitis, abscess, gout, pseudogout, septic joint, necrotizing skin infection ED COURSE: 1415: Case discussed with Dr. [place] 1423: [place] [address], in reviewing her records and admission August 28 [place] [address]13. Likely attributed to her polycythemia vera. 1425: Case discussed with Dr. Hsieh, no findings to suggest blood clot. 1431: Sed rate mildly elevated 39. In reviewing her records last admission sed rate was 60, last emergency department visit was 45. 1449: Foot negative for findings to suggest osteomyelitis. Patient with hallux valgus and arthritis. 1530: On repeat examination all results discussed with patient. The patient will be admitted to the hospitalist service for further observation and management. CHIEF COMPLAINT: Left foot pain, redness and swelling HPI: Patient is a 67-year-old female with a history of diabetes type 2, diastolic congestive heart failure, pulmonary hypertension, INDIGO and polycythemia vera who presents to the emergency department with left foot pain, swelling and redness that is now tracking up her leg. Patient reports approximately 3 weeks ago she started noticing redness and pain at her left great toe joint, she was seen and evaluated by her primary care doctor [address] Dooley and it was discussed that she may have underlying gout. Since that time she has had progressive swelling, redness and pain involving her whole foot which is now tracking upper leg. She does report a similar episode for which she was admitted to in her right foot previously. She denies any direct trauma or impact. She denies any fever however last night she was experiencing nausea and multiple episodes of emesis. She denies any chest pain, shortness of breath, chills or abdominal pain. Patient is present with her daughter, primarily speaks Gambian. PMH: Type 2 diabetes, diastolic heart failure, pulmonary hypertension, INDIGO, polycythemia vera Pertinent Past Surgical History: Cardiac catheterization Family History: Denies Social History: Never smoker, denies alcohol or drugs. Patient lives independently. REVIEW OF SYSTEMS: All other systems negative Constitutional: No fever, no chills, appetite change. Eyes: No discharge, vision change ENT: No sore throat, congestion, ear pain. Cardiovascular: No chest pain, no palpitations. Respiratory: No cough, no shortness of breath. Gastrointestinal: Nausea and vomiting, denies abdominal pain. Genitourinary: No hematuria, dysuria, flank pain. Musculoskeletal: Left foot pain, redness and swelling. Skin: No rashes, color change. Neurological: No headache, dizziness, weakness. PHYSICAL EXAM: General Appearance: Well-appearing, no acute distress and not toxic-appearing. HENT: Normocephalic, atraumatic. Bilateral external ears are normal. Bilateral tympanic membranes are normal with pearly blackmon reflex. Nares are clear, mucosa is pink. Oropharynx is clear, uvula is midline. There is no tonsillar enlargement or exudate. The dentition is normal. Eyes: PERRLA, no acute vision change, nystagmus, swelling, discharge, pain or photosensitivity. Conjunctiva pink, no pallor or injection Neck: Supple, nontender, no lymphadenopathy, no midline pain, FROM, no meningismus. Respiratory: There are no retractions, lungs are clear to auscultation. Cardiac: Regular rate and rhythm, no murmurs or gallops. Gastrointestinal: Abdomen is soft, nontender, bowel sounds normal, no masses/ hernia, no rigidity, guarding or focal peritoneal findings. Neurological: Alert and oriented x 3, CN 2-12 grossly intact, normal sensation and strength Skin: Warm, dry, see below. Musculoskeletal: Left foot has generalized tenderness to palpation, overlying erythema on the dorsal aspect extending into her left lower extremity. There is a faint macular rash along her left lower extremity as well. She has no pain or redness at her 1st MTP joint. She does have full range of motion, expresses pain with both passive and active range of motion. Patient with calf tenderness on her left side. Dorsalis pedis 2+. Extremities are symmetrical, full range of motion, no tenderness, deformity, swelling, or erythema. Psychiatric: Mood and affect are normal, there is no agitation. MEDICAL DECISION MAKING: Patient was seen independently. Secondary supervising physician at time of evaluation was Dr. Bran. Diagnosis: Left lower extremity cellulitis. Summary: See Assessment and Plan for summary of ED visit Clinical lab tests: ordered / reviewed. Independent visualization of images, tracing, or specimens: Yes. Decision to obtain medical records or history from someone other than the patient: Yes, daughter Review / Summarize previous medical records: Yes Discussed patient with another provider: Yes, Dr. Bran and Dr. Guy Patient Progress: Stable, admit. (Teena Castorena) Medical Decision Making: I did not see this patient while she was in the emergency department. However her care was discussed with PA patient was in department. I agree with treatment plan and management (Mohit Bran) - Diagnostics Imaging Results: Imaging Impressions Foot X-Ray 09/08/18 13:50 Impression: 1. Diffuse soft tissue swelling probably representing cellulitis. 2. Moderate osteoarthritis left first metatarsophalangeal joint. 3. No definite evidence of osteomyelitis although consider follow-up MRI imaging if there is continued clinical concern. Findings and recommendations discussed with Emergency Department physician, LUCERO Doan at 14:50 hour, 09/08/2018. Final report concurs with initial preliminary interpretation. Extremity Venous Study 09/08/18 13:51 Impression: No deep venous thrombosis left leg. Findings and recommendations discussed with Emergency Department physician, LUCERO Doan at 14:26 hour, 09/08/2018. Final report concurs with initial preliminary interpretation. - Objective Vital Signs: Initial Vital Signs Temperature (C) 37.0 C 09/08/18 12:53 Heart Rate 86 09/08/18 12:53 Respiratory Rate 18 09/08/18 12:53 Blood Pressure 145/80 H 09/08/18 12:53 O2 Sat (%) 89 L 09/08/18 12:53 O2 Delivery Mode Nasal Cannula O2 (L/minute) 2 Allergies/Adverse Reactions: No Known Allergies Allergy (Verified 01/08/18 10:38) Home Medications: Medication Instructions Recorded Aspirin EC [Aspirin EC 81 mg (*)] 81 mg PO HS 05/10/17 metFORMIN HCL [Glucophage 500 mg 500 mg PO BIDMEAL 01/08/18 (*)] Nebivolol HCl [Bystolic 5 mg (*)] 5 mg PO HS 07/29/18 Furosemide [Lasix 40 MG (*)] 40 mg PO DAILY #30 tab 07/30/18 Spironolactone 25 mg PO DAILY #1 tablet 07/30/18 Laboratory Results: Laboratory Results 09/08/18 14:00 09/08/18 14:00 09/08/18 09/08/18 09/08/18 14:00 14:00 14:00 WBC 27.99 10^3/uL H 10^3/uL (3.80-9.50) RBC 6.06 10^6/uL H 10^6/uL (4.18-5.33) Hgb 11.1 g/dL L g/dL (12.6-16.3) Hct 41.5 % % (38.0-47.0) MCV 68.5 fL L fL (81.5-99.8) MCH 18.3 pg L pg (27.9-34.1) MCHC 26.7 g/dL L g/dL (32.4-36.7) RDW 19.8 % H % (11.5-15.2) Plt Count 698 10^3/uL H 10^3/uL (150-400) MPV 10.0 fL fL (8.7-11.7) Neut % (Auto) Not Reported Lymph % (Auto) Not Reported [place] % (Auto) Not Reported Eos % (Auto) Not Reported Baso % (Auto) Not Reported Nucleat RBC Rel Count Not Reported Absolute Neuts (auto) Not Reported Absolute Lymphs (auto) Not Reported Absolute Monos (auto) Not Reported Absolute Eos (auto) Not Reported Absolute Basos (auto) Not Reported Absolute Nucleated RBC Not Reported Immature Gran % Not Reported Seg Neutrophils % 95.0 % % Band Neutrophils % 2.0 % % Lymphocytes % 1.0 % % Monocytes % 1.0 % % Eosinophils % 0.0 % % Basophils % 0.0 % % Metamyelocytes % 1.0 % % Myelocytes % 0.0 % % Promyelocytes % 0.0 % % Blast Cells % 0.0 % % Immature Gran # Not Reported Absolute Seg Neuts 26.59 10^3/uL H 10^3/uL (1.70-6.50) Absolute Band Neuts 0.56 10^3/uL 10^3/uL (0.00-0.70) Absolute Lymphocytes 0.28 10^3/uL L 10^3/uL (1.00-3.00) Absolute Monocytes 0.28 10^3/uL L 10^3/uL (0.30-0.80) Absolute Eosinophils 0.00 10^3/uL L 10^3/uL (0.03-0.40) Absolute Basophils 0.00 10^3/uL L 10^3/uL (0.02-0.10) Absolute Metamyelocyte 0.28 10^3/mL H 10^3/mL (0.00-0.00) Absolute Myelocytes 0.00 10^3/mL 10^3/mL (0.00-0.00) Absolute Promyelocytes 0.00 10^3/uL 10^3/uL (0.00-0.00) Absolute Plasma Cells 0.00 10^3/uL 10^3/uL (0.00-0.00) Nucleated RBCs 0 /100 WBC /100 WBC (0-0) Absolute Blast Cells 0.00 10^3/uL 10^3/uL (0.00-0.00) Plasma Cells % 0.0 % % Platelet Estimate INCREASED H (ADEQ) Polychromasia 1+ H Hypochromasia 2+ H Microcytic Cells 3+ H Oval Macrocytes 1+ H Smear Review By Pending ESR 39 MM/HR H MM/HR (0-30) Sodium 138 mEq/L mEq/L (135-145) Potassium 4.5 mEq/L mEq/L (3.5-5.2) Chloride 99 mEq/L mEq/L (97-110) Carbon Dioxide 23 mEq/l mEq/l (22-31) Anion Gap 16 mEq/L H mEq/L (6-14) BUN 38 mg/dL H mg/dL (7-23) Creatinine 1.0 mg/dL mg/dL (0.6-1.0) Estimated GFR 55 Glucose 76 mg/dL mg/dL (70-100) Uric Acid 11.1 mg/dL H mg/dL (2.5-6.8) Calcium 8.7 mg/dL mg/dL (8.5-10.4) Total Bilirubin 0.5 mg/dL mg/dL (0.1-1.4) AST 16 IU/L IU/L (14-46) ALT 29 IU/L IU/L (9-52) Alkaline Phosphatase 142 IU/L H IU/L (38-126) C-Reactive Protein 60.2 mg/L H mg/L (<10.0) Total Protein 7.5 g/dL g/dL (6.3-8.2) Albumin 4.1 g/dL g/dL (3.5-5.0) Procalcitonin 0.30 ng/mL H ng/mL (0.02-0.10) Medications Given: Sodium Chloride (Ns) 1,000 mls @ 75 mls/hr IV CONT MICHEAL Stop: 09/09/18 04:49 Last Admin: 09/08/18 18:51 Dose: 1,000 mls Piperacillin/Tazobactam/Dextrose (Zosyn 3.375 Gm (Premix)) 50 mls @ 100 mls/hr IV Q6HRS MICHEAL PRN Reason: Protocol Stop: 10/08/18 17:59 Last Admin: 09/08/18 18:50 Dose: 50 mls Insulin Human Lispro (Humalog Lispro) 0 unit SC TIDMEAL MICHEAL PRN Reason: Protocol Stop: 03/07/19 17:59 Last Admin: 09/08/18 18:15 Dose: Not Given Discontinued Medications Ampicillin Sodium/Sulbactam (Sodium 3 gm/ Sodium Chloride) 100 mls @ 200 mls/ hr IV EDNOW ONE PRN Reason: Protocol Stop: 09/08/18 14:33 Last Admin: 09/08/18 14:49 Dose: 100 mls Departure - Departure Disposition: [facility] Acute Clinical Impression: Cellulitis and abscess of left leg Condition: Fair
[2018-09-08] MEDS ORDERED: AMPICILLIN/SULBACTAM 3 GM in NS 100 ML IV ONE (14:04)
[2018-09-08 14:11] LABS: PLATELET COUNT 698 10^3/uL (150-400)
[2018-09-08] MEDS ORDERED: HYDROmorphONE/DILAUDID 1 MG/ML INJ IVP PRN (15:25)
[2018-09-08] MEDS ORDERED: oxyCODONE IR 5 MG TAB PO PRN (15:25)
[2018-09-08] MEDS ORDERED: ONDANSETRON DISINTEGRATING 4 MG TAB PO PRN (15:25)
[2018-09-08] MEDS ORDERED: ACETAMINOPHEN 325 MG TAB PO PRN (15:25)
[2018-09-08] MEDS ORDERED: ONDANSETRON 4 MG/2 ML VIAL IVP PRN (15:25)
[2018-09-08] MEDS ORDERED: NS 1,000 ML IV SCH (15:30)
[2018-09-08] MEDS ORDERED: D50W 25 GM/50 ML SYR IVP PRN (15:30)
--- NOTE | 2018-09-08 15:41 | PDGENHP ---
History and Physical - Chief Complaint left foot erythema - History of Present Illness 67-year-old female with a history of diabetes type 2, diastolic congestive heart failure, pulmonary hypertension, INDIGO and polycythemia vera who presents with left foot pain, swelling and redness that is now tracking up her leg. Patient reports approximately 3 weeks ago she started noticing redness and pain at her left great toe joint, she was seen and evaluated by her primary care doctor [address] Dooley and it was discussed that she may have underlying gout. Since that time she has had progressive swelling, redness and pain involving her whole foot which is now tracking upper leg. She does report a similar episode for which she was admitted to in her right foot previously. She denies any direct trauma or impact. She denies any fever however last night she was experiencing nausea and multiple episodes of emesis. She denies any chest pain, shortness of breath, chills or abdominal pain. Patient is present with her daughter, primarily speaks Croatian. Pt called a family member by phone to translate. Her main complaint is dorsal foot pain. She also has mild pain of her first metatarsal phalangeal joint. She does not have any pain at the ankle. She denies hx of AI disease PMH: Type 2 diabetes, diastolic heart failure, pulmonary hypertension, INDIGO, polycythemia vera Pertinent Past Surgical History: Cardiac catheterization Family History: Non contributory Social History: Never smoker, denies alcohol or drugs. Patient lives independently. WBC: 28, ESR: 39, CRP 60, Lactic Acid 1.0, LRINEC: 3 VSS History Information - Allergies/Home Medication List Allergies/Adverse Reactions: No Known Allergies Allergy (Verified 01/08/18 10:38) Home Medications: Aspirin EC [Aspirin EC 81 mg (*)] 81 mg PO HS 05/10/17 [Last Taken 09/08/18] metFORMIN HCL [Glucophage 500 mg (*)] 500 mg PO BIDMEAL 01/08/18 [Last Taken ] Nebivolol HCl [Bystolic 5 mg (*)] 5 mg PO HS 07/29/18 [Last Taken 09/07/18] I have personally reviewed and updated: medical history, social history Past Medical History: Polycythemia vera, diastolic congestive heart failure, pulmonary hypertension, obstructive sleep apnea (does not tolerate a CPAP machine and does not always wear oxygen throughout the daytime. Wears 2.5 L nasal cannula at nighttime) - Past Medical History diabetes type 2, hypertension Additional medical history: polycythemia with baseline white blood cell count in the 20,000 range - Surgical History Reports: no pertinent surgical hx Additional surgical history: Cardiac catheterization 05/17/2017 with results of moderate to severe pulmonary hypertension mostly driven by diastolic dysfunction and LHF - Family History Additional family history: no family history of venous thromboembolism, no family history of coronary artery disease - Social History Smoking Status: Never smoked Additional social history: normally independent in her ADLs, lives locally. She moved from [place] 10 years ago she does plan to go back this summer to visit her one daughter that lives there. Her other daughter lives locally. 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 Speaks primarily Croatian. Review of Systems Review of Systems: Physical Exam Physical Exam: Temp Pulse Resp BP Pulse Ox 36.8 C 78 16 120/54 L 97 09/08/18 14:51 09/08/18 14:51 09/08/18 14:51 09/08/18 14:51 09/08/18 14:51 Constitutional: no apparent distress Eyes: PERRL, EOMI Ears, Nose, Mouth, Throat: moist mucous membranes Cardiovascular: regular rate and rhythym, no murmur, rub, or gallop Respiratory: no respiratory distress, no rales or rhonchi, clear to auscultation Gastrointestinal: normoactive bowel sounds Skin: warm, other (Left Foot/Leg: there is visible swelling involving foot at dorsal area and extending above the ankle. There is some erythema. There is a macular papular rash extending to below the knee. There is no pain with flexion or extenion of the foot. palpation reveals pain in the dorsal part of the foot but no involvement of the ankle. There is minimal tendernes with movement of the first metatarsal phalangeal joint) Neurologic: AAOx3 Psychiatric: interacting appropriately, not anxious, not encephalopathic Lymph, Heme, Immunologic: No petechiae Lab Data & Imaging Review 09/08/18 14:00 09/08/18 14:00 WBC 27.99 10^3/uL (3.80-9.50) H 09/08/18 14:00 RBC 6.06 10^6/uL (4.18-5.33) H 09/08/18 14:00 Hgb 11.1 g/dL (12.6-16.3) L 09/08/18 14:00 Hct 41.5 % (38.0-47.0) 09/08/18 14:00 MCV 68.5 fL (81.5-99.8) L 09/08/18 14:00 MCH 18.3 pg (27.9-34.1) L 09/08/18 14:00 MCHC 26.7 g/dL (32.4-36.7) L 09/08/18 14:00 RDW 19.8 % (11.5-15.2) H 09/08/18 14:00 Plt Count 698 10^3/uL (150-400) H 09/08/18 14:00 MPV 10.0 fL (8.7-11.7) 09/08/18 14:00 Neut % (Auto) Not Reported 09/08/18 14:00 Lymph % (Auto) Not Reported 09/08/18 14:00 [place] % (Auto) Not Reported 09/08/18 14:00 Eos % (Auto) Not Reported 09/08/18 14:00 Baso % (Auto) Not Reported 09/08/18 14:00 Nucleat RBC Rel Count Not Reported 09/08/18 14:00 Absolute Neuts (auto) Not Reported 09/08/18 14:00 Absolute Lymphs (auto) Not Reported 09/08/18 14:00 Absolute Monos (auto) Not Reported 09/08/18 14:00 Absolute Eos (auto) Not Reported 09/08/18 14:00 Absolute Basos (auto) Not Reported 09/08/18 14:00 Absolute Nucleated RBC Not Reported 09/08/18 14:00 Immature Gran % Not Reported 09/08/18 14:00 Seg Neutrophils % 95.0 % 09/08/18 14:00 Band Neutrophils % 2.0 % 09/08/18 14:00 Lymphocytes % 1.0 % 09/08/18 14:00 Monocytes % 1.0 % 09/08/18 14:00 Eosinophils % 0.0 % 09/08/18 14:00 Basophils % 0.0 % 09/08/18 14:00 Metamyelocytes % 1.0 % 09/08/18 14:00 Myelocytes % 0.0 % 09/08/18 14:00 Promyelocytes % 0.0 % 09/08/18 14:00 Blast Cells % 0.0 % 09/08/18 14:00 Immature Gran # Not Reported 09/08/18 14:00 Absolute Seg Neuts 26.59 10^3/uL (1.70-6.50) H 09/08/18 14:00 Absolute Band Neuts 0.56 10^3/uL (0.00-0.70) 09/08/18 14:00 Absolute Lymphocytes 0.28 10^3/uL (1.00-3.00) L 09/08/18 14:00 Absolute Monocytes 0.28 10^3/uL (0.30-0.80) L 09/08/18 14:00 Absolute Eosinophils 0.00 10^3/uL (0.03-0.40) L 09/08/18 14:00 Absolute Basophils 0.00 10^3/uL (0.02-0.10) L 09/08/18 14:00 Absolute Metamyelocyte 0.28 10^3/mL (0.00-0.00) H 09/08/18 14:00 Absolute Myelocytes 0.00 10^3/mL (0.00-0.00) 09/08/18 14:00 Absolute Promyelocytes 0.00 10^3/uL (0.00-0.00) 09/08/18 14:00 Absolute Plasma Cells 0.00 10^3/uL (0.00-0.00) 09/08/18 14:00 Nucleated RBCs 0 /100 WBC (0-0) 09/08/18 14:00 Absolute Blast Cells 0.00 10^3/uL (0.00-0.00) 09/08/18 14:00 Plasma Cells % 0.0 % 09/08/18 14:00 Platelet Estimate INCREASED (ADEQ) H 09/08/18 14:00 Polychromasia 1+ H 09/08/18 14:00 Hypochromasia 2+ H 09/08/18 14:00 Microcytic Cells 3+ H 09/08/18 14:00 Oval Macrocytes 1+ H 09/08/18 14:00 ESR 39 MM/HR (0-30) H 09/08/18 14:00 Sodium 138 mEq/L (135-145) 09/08/18 14:00 Potassium 4.5 mEq/L (3.5-5.2) 09/08/18 14:00 Chloride 99 mEq/L (97-110) 09/08/18 14:00 Carbon Dioxide 23 mEq/l (22-31) 09/08/18 14:00 Anion Gap 16 mEq/L (6-14) H 09/08/18 14:00 BUN 38 mg/dL (7-23) H 09/08/18 14:00 Creatinine 1.0 mg/dL (0.6-1.0) 09/08/18 14:00 Estimated GFR 55 09/08/18 14:00 Glucose 76 mg/dL (70-100) 09/08/18 14:00 Uric Acid 11.1 mg/dL (2.5-6.8) H 09/08/18 14:00 Calcium 8.7 mg/dL (8.5-10.4) 09/08/18 14:00 Total Bilirubin 0.5 mg/dL (0.1-1.4) 09/08/18 14:00 AST 16 IU/L (14-46) 09/08/18 14:00 ALT 29 IU/L (9-52) 09/08/18 14:00 Alkaline Phosphatase 142 IU/L (38-126) H 09/08/18 14:00 C-Reactive Protein 60.2 mg/L (<10.0) H 09/08/18 14:00 Total Protein 7.5 g/dL (6.3-8.2) 09/08/18 14:00 Albumin 4.1 g/dL (3.5-5.0) 09/08/18 14:00 Assessment & Plan Assessment: #Left foot pain and erythema likely due to Left Foot Cellulitis vs Gout ( elevated Uric Acid, she has mild first metatarsal phalangeal joint involvement) vs other soft tissue infection vs other (OM, not seen on XR) -LRINEC score 3. If worsens, consider Necrotizing soft tissue infection, negative CT -Were out of Unasyn (she got this in the ER), will start Zosyn given risk factors but can likely deescalate tomorrow if she responds. We don't have MRSA coverage at this time. -recheck inflammatory markers inflammatory markers in a.m. -consider arthrocentesis -this is a very similar presentation that she had in July. She required a short duration of IV abx and was then changed to Keflex and Bactrim -vss. Blood culture is pending. -check procalcitonin -for now will hold off on antiinflammatory or uric lowering drugs and determine response to abx alone #DMII #Hx of Polycythemia Vera #Hx of chronic Leucocytosis. WBC count today is elevated above chronic elevation #chronic diastolic CHF, not in Exacerbation. Holding diuretics #INDIGO #HTN #Hx of CAD Plan: admission Infection mgmt per above. I got an CT of the LE and this does not show any e/o of soft tissue gas or fluid collection Lovenox for DVT proph Appropriate home meds
[2018-09-08] MEDS ORDERED: AMPICILLIN/SULBACTAM 3 GM in NS 100 ML IV SCH (18:00)
[2018-09-08] MEDS: INSULIN LISPRO 100 UNIT/ML SC SCH (18:15)
[2018-09-08] MEDS: PIPERACILLIN/TAZO 3.375 GM/DEX 50 ML IV SCH (18:50)
[2018-09-08] MEDS ORDERED: IOPAMIDOL (ISOVUE-300) 100 ML BTL ONE (19:08)
[2018-09-08] MEDS: NEBIVOLOL HCL 5 MG TAB PO SCH (20:38)
[2018-09-09] MEDS: PIPERACILLIN/TAZO 3.375 GM/DEX 50 ML IV SCH ×3 (00:26→13:14)
[2018-09-09 05:44] LABS: PLATELET COUNT 589 10^3/uL (150-400)
[2018-09-09] MEDS: INSULIN LISPRO 100 UNIT/ML SC SCH ×3 (07:46→18:24)
[2018-09-09] MEDS: ENOXAPARIN 40 MG/0.4 ML SYR SC SCH (07:51)
--- NOTE | 2018-09-09 14:20 | HOSPPROG ---
Hospitalist Progress Note Assessment/Plan: #Left foot pain and erythema, possible Cellulitis vs acute gout -LRINEC score 3, negative CT -given 1 dose unasyn in ER, then started on Zosyn given DM, as unclear if cellulitis vs gout (esr/crp/WBC chronically elevated for her) will change to ancef -this is a very similar presentation to what she had in July on R foot -Blood culture pending -will add indomethacin #DM type II -A[facility]C [facility] [place] [facility]art [facility] meds #Polycythemia Vera and chronic Leukocytosis -chronic, some eval in 2012 noted in [facility] (likely done as an outpt) -will recheck SPEP -recheck esr/crp in AM #chronic diastolic CHF-stable -she does not want to be on lasix #INDIGO #HTN, stable #Hx of CAD- no acute issues DISPO- possible discharge Tues Lovenox for DVT prophy Subjective: She speaks some Lao but requested using her daughter via phone as butcher or smallgoods maker. Daughter planning to come to hospital later in the day. Says she has no n/v/CP/SOB. L foot looks less red/swollen. Was told it was gout by PCP. Objective: Vital Signs Temp Pulse Resp BP Pulse Ox 98.3 F 75 14 128/65 H 90 L 09/09/18 11:57 09/09/18 11:57 09/09/18 11:57 09/09/18 11:57 09/09/18 11:57 Laboratory Results 09/09/18 05:07 09/09/18 05:07 09/08/18 09/09/18 09/10/18 11:59 11:59 11:59 Intake Total 853 Balance 853 - Time Spent With Patient Time Spent with Patient: greater than 35 minutes Time Spent with Patient: Greater than 35 minutes spent on this patients care, greater than 50% of time spent counseling, educating, and coordinating care regarding the above mentioned plan. - Pending Discharge Pending Discharge Within 48 Hours: Yes Pending Discharge Date: 09/11/18 Pending Discharge Time: 11:00 - Physical Exam Constitutional: no apparent distress, appears nourished Eyes: anicteric sclera Ears, Nose, Mouth, Throat: moist mucous membranes, hearing normal Cardiovascular: regular rate and rhythym Respiratory: no respiratory distress, no rales or rhonchi, clear to auscultation Gastrointestinal: normoactive bowel sounds, soft, non-tender abdomen, No rebound , No distension Skin: warm Neurologic: other (Left Foot/Leg: some swelling involving foot at dorsal area just around medial malleoli. There is some erythema but no warmth. Faint/ scattered papular rash extending to below the knee. There is no pain with flexion or extension of the foot, minimal pain in the dorsal part of the foot, no pain around malleoli, minimal tenderness with movement of the first metatarsal phalangeal joint) Psychiatric: interacting appropriately, not anxious, not encephalopathic ICD10 Worksheet Patient Problems: Problems Problem Status Onset Cellulitis and abscess of left leg Acute CHF (congestive heart failure) Acute Cardiomegaly Acute Cellulitis of right foot Acute Chronic Disease Mgmt/Transitional Care Acute Elevated brain natriuretic peptide (BNP) level Acute Hypoxia Acute
--- NOTE | 2018-09-09 15:44 | ASMTCMCOM ---
CM Note CM Note Notes: CM spoke with pt in the room with the tablet full time staff interpreter, as pt's first language is [place]. Pt lives alone in an apartment in [place] and has a daughter Ladonna who is also local. CM also spoke with Ladonna on the phone. PT/OT have cleared pt for independent dc. Pt and dtr are comfortable with this plan and have declined Meals on Wheels. CM provided pt with loan closet list so she can obtain a cane as recommended by OT. CM to follow. D/C Plan: Independent Date Signed: 09/09/2018 03:43 PM Electronically Signed By:Bibi Cope. RICHI
[2018-09-09] MEDS: metFORMIN HCL 500 MG TAB PO SCH (18:24)
[2018-09-09] MEDS: NEBIVOLOL HCL 5 MG TAB PO SCH (20:56)
[2018-09-09] MEDS ORDERED: ASPIRIN EC 81 MG TAB PO SCH (21:00)
[2018-09-10 04:45] LABS: PLATELET COUNT 559 10^3/uL (150-400)
[2018-09-10 07:25] VITALS: BP 120/55
[2018-09-10] MEDS ORDERED: SPIRONOLACTONE 25 MG TAB PO SCH (09:00)
[2018-09-10] MEDS: ENOXAPARIN 40 MG/0.4 ML SYR SC SCH (09:36)
[2018-09-10] MEDS: metFORMIN HCL 500 MG TAB PO SCH ×2 (09:36→17:18)
[2018-09-10] MEDS: INSULIN LISPRO 100 UNIT/ML SC SCH ×3 (09:37→18:01)
--- NOTE | 2018-09-10 13:40 | PDMN ---
Medical Necessity Medical necessity: Pt meets IP criteria per & MCG M-70; est los >2 mn for eval/tx of L foot pain & erythema due to possible cellulitis vs gout vs other soft tissue infection; if worsens consider necrotizing soft tissue infection; admit for further workup/monitoring & IV abx; hx CHF, polycythemia, diabetes; per H&P & order 09/08/18
--- NOTE | 2018-09-10 15:02 | HOSPPROG ---
Hospitalist Progress Note Assessment/Plan: 67 yo F w infection vs gout #Left foot pain and erythema, possible Cellulitis vs acute gout -LRINEC score 3, negative CT -given 1 dose unasyn in ER, then started on Zosyn given DM, as unclear if cellulitis vs gout (esr/crp/WBC chronically elevated for her) will change to ancef -this is a very similar presentation to what she had in July on R foot -Blood culture neg thus far -will add indomethacin DM type II -A1C done 07/2018, revwd in [facility] -restart po meds Polycythemia Vera and chronic Leukocytosis -chronic, some eval in 2012 noted in [facility] (likely done as an outpt) -will recheck SPEP- NEG -recheck esr/crp in AM chronic diastolic CHF-stable -she does not want to be on lasix #INDIGO #HTN, stable #Hx of CAD- no acute issues home today > 30 minutes Subjective: foot improved. history obtained via [employer] who functioned as [employer] Objective: Vital Signs Temp Pulse Resp BP Pulse Ox 36.7 C 77 24 H 120/55 L 90 L 09/10/18 07:23 09/10/18 07:23 09/10/18 07:23 09/10/18 07:23 09/10/18 07:23 Laboratory Results 09/10/18 04:17 09/10/18 04:17 09/09/18 09/10/18 09/11/18 05:59 05:59 05:59 Intake Total 853 400 Balance 853 400 - Physical Exam Constitutional: no apparent distress, appears nourished Eyes: PERRL, anicteric sclera Ears, Nose, Mouth, Throat: moist mucous membranes, hearing normal Cardiovascular: regular rate and rhythym, no murmur, rub, or gallop Respiratory: no respiratory distress, no rales or rhonchi Gastrointestinal: normoactive bowel sounds, soft, non-tender abdomen Genitourinary: No dukes in urethra Skin: warm Musculoskeletal: full muscle strength (L foot w no erythema, warmth. DP pulse 2 +) ICD10 Worksheet Patient Problems: Problems Problem Status Onset Cellulitis and abscess of left leg Acute CHF (congestive heart failure) Acute Cardiomegaly Acute Cellulitis of right foot Acute Chronic Disease Mgmt/Transitional Care Acute Elevated brain natriuretic peptide (BNP) level Acute Hypoxia Acute
--- NOTE | 2018-09-10 15:36 | GDS ---
[f rep st] DISCHARGE SUMMARY DISCHARGE DIAGNOSES: 1. Left lower extremity cellulitis versus gout. Synovial fluid sampling was not obtained. 2. Polycythemia vera. 3. Type 2 diabetes. 4. Diastolic heart failure. 5. History of pulmonary hypertension. Patient came to the ER with left foot pain and swelling on the . She had a CT at that time, whic h was notable for swelling of the skin which was consistent with infection. The CT report did not de scribe formation of large joint effusion, which would be more suggestive of gout. She received Unasy n, followed by Zosyn, and was ultimately narrowed to cefazolin with improvement. When I see her on t he third hospital day, the patient's foot is identical to the other one. She is afebrile. Her white count remains elevated. SPEP was sent and is negative for monoclonal spike. Inflammatory markers w ere elevated, which was a chronic issue for her. She has microcytic anemia with low iron without TIB C. She is discharged home to complete a course of cefazolin. On repeat presentations, there is evidence of a joint effusion. The patient should probably have synovial fluid sampling to evaluate for gout. DISCHARGE STATUS: To home. PRESCRIPTIONS: Keflex, to complete 3 additional days. /[id number]/MODL
--- NOTE | 2018-09-10 15:52 | ASDISCHSUM ---
Discharge Information Plan Status:Home with No Needs Medically Cleared to Leave:09/10/2018 Discharge Date:09/10/2018 CM D/C Disposition:Home, Routine, Self-Care ADT D/C Disposition:Home, Routine, Self-Care Projected Discharge Date:09/10/2018 Transportation at D/C:Family Discharge Delay Reason: Follow-Up Date:09/10/2018 Discharge Slot: Final Diagnosis:cellulitis Placement Information Patient Contact Information Contact Name:KEREN Relationship:Daughter Address: Work Phone: City:[place] Phone: [facility]/cinvolve Code:[place] Email: Financial Information Financial Class:Medicare Primary Plan Desc:MEDICARE IP PART B ONLY Primary Plan Number:[id number] Secondary Plan Desc:MEDICAID [place]ALTH FIRST [place] Secondary Plan Number:[id number] Assessment Information [facility] Progress Note CM Note CM Note Notes: CM spoke with pt in the room with the tablet deaf interpreter, as pt's first language is [place]. Pt lives alone in an apartment in [place] and has a daughter Ladonna who is also local. CM also spoke with Ladonna on the phone. PT/OT have cleared pt for independent dc. Pt and dtr are comfortable with this plan and have declined Meals on Wheels. CM provided pt with loan closet list so she can obtain a cane as recommended by OT. CM to follow. D/C Plan: Independent Date Signed: 09/09/2018 03:43 PM Electronically Signed By:Bibi Cope. RICHI LACE LACE Length of stay for Answers: 2 days current admission Acuity / Level of Answers: Yes Care: Did the patient have an inpatient admission? Comorbidities - select Answers: Congestive heart failure all that apply Diabetes (uncontrolled or controlled) Other Notes: HTN # of Emergency department Answers: 3-4 visits in the last 6 months Score: 12 Date Signed: 09/10/2018 03:51 PM Electronically Signed By:Bbii Cope. RN Case Management Discharge Plan Note Case Management Discharge Discharge Order Complete? Answers: Yes Patient to Obtain Answers: via Family Medications Transportation Arranged Answers: Family/Friends Transport will Pick (Date 09/10/2018 06:00 PM & Time) Family Notified Answers: Yes Notes: by pt Discharge Comments Notes: CM spoke with pt, RN and with adrian Dougherty yesterday. Pt reports adrian Dougherty will pick her up today at 18:00 and she is comfortable discharging home independently. RN also comfortable with this plan. No further CM needs noted at this time. Date Signed: 09/10/2018 03:50 PM Electronically Signed By:Bibi Cope. RICHI Intervention Information Intervention Type:*Incorrect Registration Date of Service:09/08/2018 08:45 AM Patient Type:Observation Staff Member:RICHI Contreras, Alvina Hours: Discipline: Severity: Comment:
== END 2018-09-10 18:48 | disposition home or self-care (01) | DRG 603 ==
LOC: OBSVTOIN 15:27 → F3N 16:55
PROVIDERS: ADMIT Family Medicine; ATTEND Family Medicine
DX: L03.116 Cellulitis of left lower limb (principal); M10.9 Gout, unspecified; E11.9 Type 2 diabetes mellitus without complications; I50.32 Chronic diastolic (congestive) heart failure; G47.33 Obstructive sleep apnea (adult) (pediatric); D45 Polycythemia vera; D72.829 Elevated white blood cell count, unspecified; D50.9 Iron deficiency anemia, unspecified
CPT/HCPCS: 96374; 97116-GP; 97161-GP; 97165-GO; J0295; J0690; J1650; J2543; Q9967